=== PATIENT | female | born 1955 | race Caucasian/White ===

== ENCOUNTER → 2017-07-20 | Outpatient (CLI) | payer MEDICARE, SELFPAY | PROVIDERS: Visit Provider Internal Medicine Adolescent Medicine | DX: R05 Cough; M79.1 Myalgia | CPT/HCPCS: 71020; 87486; 87581; 87633; 87798 ==

== ENCOUNTER → 2017-08-05 | Outpatient (CLI) | payer MEDICARE, SELFPAY | PROVIDERS: Visit Provider Nurse Practitioner Family | DX: E78.5 Hyperlipidemia, unspecified (principal); R25.2 Cramp and spasm; I10 Essential (primary) hypertension; E55.9 Vitamin D deficiency, unspecified | CPT/HCPCS: 36415; 80053; 80061; 82306; 83735; 84443; 85025 ==

== ENCOUNTER → 2018-01-05 08:33 | Outpatient (CLI) | payer MEDICARE, SELFPAY ==
--- NOTE | 2018-01-05 08:43 | MM_ITS ---
MM Dig screening mamm BI w/CAD . COMPARISON: Previous mammograms: December 2016, 2015, November 2014. October 2013. June 2012. . INDICATION: Routine screening. No hormones. Previous excisional biopsy left breast. Family history. Sister with breast cancer age 50 TECHNIQUE: Standard CC and MLO images were obtained. R2 CAD reviewed. FINDINGS: No significant new findings. Low-density breast with generalized fatty replacement RIGHT BREAST:No no significant new areas of concern Small area density at retroareolar region on MLO view dissipates on cc view, and is been seen on multiple previous studies including 2014 . Period It can be followed. Would recommend bilateral mammogram in not over one year for ongoing evaluation LEFT BREAST:No significant new findings. Follow-up in one year recommended IMPRESSION: Stable mammograms No Significant new findings. Follow up one year recommended BI-RADS Category: 1 Negative RECOMMENDED FOLLOW-UP: 1YR - 1 YEAR FOLLOW-UP (A letter has been sent to the patient regarding results of the study.)
[2018-01-05 09:04] LABS: Basophils % 0.4 % (0.1-2.0); Eosinophils # 0.1 K/mm3 (0.0-0.4); Eosinophils % 1.7 % (0.1-12.0); Hematocrit 35.3 % (37.0-47.0); Hemoglobin 11.8 g/dL (12.2-16.2); Lymphocytes # 2.1 K/mm3 (0.7-4.5); Lymphocytes % 30.1 K/mm3 (10-50); Mean Corpuscular HGB Conc 33.4 g/dL (31.8-35.4); Mean Corpuscular Hemoglobin 29.8 pg (27.0-31.2); Mean Corpuscular Volume 89.1 fl (81-99); Mean Platelet Volume 7.6 fl (7.4-10.4); Monocytes # 0.4 K/mm3 (0.1-1.0); Monocytes % 4.9 % (1.7-9.3); Neutrophils # 4.4 K/mm3 (1.8-7.8); Neutrophils % 62.9 % (37.0-80.0); Platelet Count 268 K/mm3 (142-424); Red Blood Count 3.96 M/mm3 (4.20-5.40); Red Cell Distribution Width 14.3 % (11.5-17.5)
[2018-01-05 12:28] LABS: Alanine Aminotransferase 21 U/L (12-78); Albumin Level 3.8 gm/dL (3.4-5.0); Alkaline Phosphatase 99 U/L (46-116); Anion Gap 11.5 mEq/L (5-15); Bilirubin,Total 0.3 mg/dL (0.2-1.0); Blood Urea Nitrogen 19 mg/dL (7-18); Carbon Dioxide 30 mmol/L (21.0-32.0); Chloride 104 mmol/L (98-107); Chol/HDL Ratio 5.1 (1-3.5); Cholesterol 209 mg/dL (140-200); Creatinine,Serum 0.74 mg/dL (0.55-1.02); Estimated Glomerular Filt Rate 79 ml/min (>60); GFR (African American) 96 ML/MIN (>60); Globulin 3.7 gm/dl (1.3-3.2); Glucose 106 mg/dL (74-106); HDL Cholesterol 41 mg/dL (29-89); LDL Cholesterol 124 mg/dL (0-130); Sodium 141 mmol/L (136-145); Total Protein,Serum 7.5 gm/dL (6.4-8.2); Triglycerides 222 mg/dL (30-200); VLDL Cholesterol 44 mg/dL (0-40)
[2018-01-05 12:30] LABS: Aspartate Amino Transferase 19 U/L (15-37); Potassium 4.5 mmoL/L (3.5-5.1)
[2018-01-06 20:12] LABS: Vitamin B12 278 pg/mL (232-1245)
== END ==
PROVIDERS: Family Provider Internal Medicine Adolescent Medicine; PCP Internal Medicine Adolescent Medicine; Visit Provider Internal Medicine Adolescent Medicine
DX: Z12.31 Encounter for screening mammogram for malignant neoplasm of breast (principal); E53.8 Deficiency of other specified B group vitamins; E78.5 Hyperlipidemia, unspecified; E55.9 Vitamin D deficiency, unspecified; I10 Essential (primary) hypertension
CPT/HCPCS: 36415; 77067; 80053; 80061; 82607; 82652; 85025

== ENCOUNTER → 2018-01-27 09:26 | Outpatient (CLI) | payer MEDICARE, SELFPAY ==
--- NOTE | 2018-01-27 09:31 | CA_ITS ---
PROCEDURE: 2-D M-mode and color Doppler study INDICATIONS FOR THE TEST: Chest pain COPD Heart Murmur Tobacco Smoking Palpitations Fatigue Syncope EdemaX HypertensionXDiabetes Mellitus Rheumatic Fever SOB CM ObesityXHyperlipidemiaX Family History HD Additional History PATIENT INFORMATION HEIGHT: 62 WEIGHT:215 GENDER: Female B/P:120/80 2-D/M-MODE INTERPRETATION: 2-D MEASUREMENTS OBSERVED VALUES IN CMS Right Ventricular Dimension (RVDd) 1.3 Interventricular Septum (Thickness)(IVsd) .9 Left Ventricular Internal Dimensions(LVIDd) 5.7 Left Ventricular Posterior Wall (Thickness)(LVPWd) 1.1 Aortic Root 3.8 Aortic Cusp Separation 2.0 Left Atrial Dimensions (LAD) 4.2 2D 1. Left atrium is mildly enlarged, left ventricle is normal size, there is no concentric left ventricular hypertrophy, visually estimated ejection fraction 55% with no obvious regional wall motion abnormality. 2. The right atrium and right ventricle are normal size and contractility. 3. The aortic valve is minimally thickened and fibrosed. 4. The mitral and tricuspid valve leaflets are minimally thickened. 5. The pulmonic valve is poorly visualized. 6. No significant pericardial effusion noted. DOPPLER INTERROGATION: Doppler interrogation of the aortic, mitral and tricuspid valvular presence of mild mitral and tricuspid regurgitation, tricuspid and jet velocity is insufficient for calculation of the right ventricular systolic pressure, diastolic parameters are inconclusive. CONCLUSION: 1. Mildly enlarged left atrium, normal left ventricular size, visually estimated ejection fraction 55% with no obvious regional wall motion abnormality, diastolic parameters are inconclusive. 2. Mild mitral and tricuspid regurgitation 3. No significant pericardial effusion noted.
== END ==
PROVIDERS: Family Provider Internal Medicine Adolescent Medicine; PCP Internal Medicine Adolescent Medicine; Visit Provider Nurse Practitioner Family
DX: R60.1 Generalized edema (principal); R06.02 Shortness of breath; R53.81 Other malaise
CPT/HCPCS: 93306

== ENCOUNTER → 2018-09-09 09:37 | Outpatient (CLI) | payer MEDICARE, SELFPAY ==
--- NOTE | 2018-09-09 09:52 | XR_ITS ---
XR knee LT 3V Ordering Physician: Apurva Ledezma Patient Age: 63 years: Female HISTORY: ITS.REASON: PAIN, HX OF TOTAL KNEE REPLACEMENT Pain at left knee TECHNIQUE: AP lateral and oblique view left knee COMPARISON :August 2015 left knee FINDINGS Left TMJ a appears stable and unchanged. No new or acute findings. Period The prosthetic elements appear to be well positioned stable with no fracture or loosening evident. Bones well mineralized. At suprapatella bursa there is upper normal to perhaps subtle increased joint fluid., Minimal suggestion of such Suggested second of 2 lateral views IMPRESSION: Stable satisfactory appearing Left TKA. No fracture or loosening evident versus 2016 Upper normal to perhaps scant increased joint fluid suprapatella bursa
[2018-09-09 10:00] LABS: Basophils % 0.5 % (0.1-2.0); Eosinophils # 0.1 K/mm3 (0.0-0.4); Eosinophils % 1.7 % (0.1-12.0); Hematocrit 38.2 % (37.0-47.0); Hemoglobin 11.8 g/dL (12.2-16.2); Lymphocytes # 2.4 K/mm3 (0.7-4.5); Lymphocytes % 35.7 % (10-50); Mean Corpuscular HGB Conc 30.8 g/dL (31.8-35.4); Mean Corpuscular Hemoglobin 28.2 pg (27.0-31.2); Mean Corpuscular Volume 91.7 fl (81-99); Mean Platelet Volume 7.2 fl (7.4-10.4); Monocytes # 0.3 K/mm3 (0.1-1.0); Monocytes % 4.5 % (1.7-9.3); Neutrophils # 3.8 K/mm3 (1.8-7.8); Neutrophils % 57.6 % (37.0-80.0); Platelet Count 254 K/mm3 (142-424); Red Blood Count 4.17 M/mm3 (4.20-5.40); Red Cell Distribution Width 14.5 % (11.5-17.5); White Blood Count 6.6 K/mm3 (4.8-10.8)
[2018-09-09 12:32] LABS: Alanine Aminotransferase 19 U/L (12-78); Albumin Level 3.3 gm/dL (3.4-5.0); Albumin/Globulin Ratio 0.9 (1.1-1.8); Alkaline Phosphatase 110 U/L (46-116); Anion Gap 13.2 mEq/L (5-15); Aspartate Amino Transferase 14 U/L (15-37); Bilirubin,Total 0.2 mg/dL (0.2-1.0); Blood Urea Nitrogen 23 mg/dL (7-18); Calcium 9.6 mg/dL (8.5-10.1); Carbon Dioxide 28 mmol/L (21.0-32.0); Chloride 105 mmol/L (98-107); Chol/HDL Ratio 8.5 (1-3.5); Cholesterol 264 mg/dL (140-200); Creatinine,Serum 0.87 mg/dL (0.55-1.02); Estimated Glomerular Filt Rate 65 ml/min (>60); Ferritin 13 ng/mL (8-388); GFR (African American) 79 ML/MIN (>60); Globulin 3.6 gm/dl (1.3-3.2); Glucose 107 mg/dL (74-106); HDL Cholesterol 31 mg/dL (29-89); LDL Cholesterol 161 mg/dL (0-130); Potassium 4.2 mmoL/L (3.5-5.1); Sodium 142 mmol/L (136-145); Thyroid Stimulating Hormone 4.97 uIU/ml (0.358-3.740); Total Protein,Serum 6.9 gm/dL (6.4-8.2); Triglycerides 360 mg/dL (30-200); VLDL Cholesterol 72 mg/dL (0-40)
[2018-09-10 06:43] LABS: Iron 41 ug/dL (27-139); UIBC 317 ug/dL (118-369)
[2018-09-10 17:18] LABS: Iron Saturation 11 % (15-55); Vitamin B12 607 pg/mL (232-1245)
[2018-09-11 08:46] LABS: Vitamin D 25 Hydroxy 30.3 ng/mL (30.0-100.0)
[2018-09-12 07:05] LABS: Folate 7.5 ng/mL (>3.0)
== END ==
PROVIDERS: Visit Provider Nurse Practitioner Family
DX: D63.8 Anemia in other chronic diseases classified elsewhere (principal); E78.5 Hyperlipidemia, unspecified; E55.9 Vitamin D deficiency, unspecified; E53.8 Deficiency of other specified B group vitamins; E66.9 Obesity, unspecified; M25.562 Pain in left knee
CPT/HCPCS: 36415; 73562; 80053; 80061; 82607; 82652; 82728; 82746; 83540; 83550; 84443; 85025

== ENCOUNTER → 2019-01-06 09:40 | Outpatient (CLI) | payer MEDICARE, SELFPAY ==
[2019-01-06 11:09] LABS: Alanine Aminotransferase 24 U/L (12-78); Albumin Level 3.3 gm/dL (3.4-5.0); Alkaline Phosphatase 95 U/L (46-116); Anion Gap 11.8 mEq/L (5-15); Aspartate Amino Transferase 12 U/L (15-37); Bilirubin,Total 0.4 mg/dL (0.2-1.0); Blood Urea Nitrogen 22 mg/dL (7-18); Calcium 9.1 mg/dL (8.5-10.1); Carbon Dioxide 29 mmol/L (21.0-32.0); Chloride 104 mmol/L (98-107); Chol/HDL Ratio 6.1 (1-3.5); Cholesterol 244 mg/dL (140-200); Creatinine,Serum 0.86 mg/dL (0.55-1.02); Estimated Glomerular Filt Rate 66 ml/min (>60); Ferritin 29 ng/mL (8-388); Free T4 (Free Thyroxine) 0.93 ng/dl (0.76-1.46); GFR (African American) 80 ML/MIN (>60); Globulin 3.4 gm/dl (1.3-3.2); Glucose 95 mg/dL (74-106); HDL Cholesterol 40 mg/dL (29-89); LDL Cholesterol 165 mg/dL (0-130); Potassium 3.8 mmoL/L (3.5-5.1); Sodium 141 mmol/L (136-145); Total Protein,Serum 6.7 gm/dL (6.4-8.2); Triglycerides 193 mg/dL (30-200); VLDL Cholesterol 39 mg/dL (0-40)
[2019-01-06 12:28] LABS: Basophils % 0.5 % (0.1-2.0); Eosinophils # 0.1 K/mm3 (0.0-0.4); Eosinophils % 1.2 % (0.1-12.0); Hematocrit 40.2 % (37.0-47.0); Hemoglobin 12.7 g/dL (12.2-16.2); Lymphocytes # 2.2 K/mm3 (0.7-4.5); Mean Corpuscular HGB Conc 31.5 g/dL (31.8-35.4); Mean Corpuscular Hemoglobin 29.9 pg (27.0-31.2); Mean Platelet Volume 7.5 fl (7.4-10.4); Monocytes # 0.3 K/mm3 (0.1-1.0); Monocytes % 4.6 % (1.7-9.3); Neutrophils # 3.4 K/mm3 (1.8-7.8); Neutrophils % 56.9 % (37.0-80.0); Platelet Count 278 K/mm3 (142-424); Red Blood Count 4.24 M/mm3 (4.20-5.40); Red Cell Distribution Width 14.9 % (11.5-17.5); White Blood Count 6.1 K/mm3 (4.8-10.8)
[2019-01-07 17:26] LABS: Vitamin B12 557 pg/mL (232-1245)
[2019-01-09 08:50] LABS: Vitamin D 25 Hydroxy 30.5 ng/mL (30.0-100.0)
== END ==
PROVIDERS: Visit Provider Internal Medicine Adolescent Medicine
DX: D63.8 Anemia in other chronic diseases classified elsewhere (principal); E78.5 Hyperlipidemia, unspecified; E53.8 Deficiency of other specified B group vitamins; E55.9 Vitamin D deficiency, unspecified; E03.9 Hypothyroidism, unspecified
CPT/HCPCS: 36415; 80053; 80061; 82607; 82652; 82728; 84439; 84443; 85025

== ENCOUNTER → 2019-01-11 09:07 | Outpatient (CLI) | payer MEDICARE, SELFPAY ==
--- NOTE | 2019-01-11 09:14 | MM_ITS ---
MM Dig screening mamm BI w/CAD CAD Screening COMPARISON: Digital mammograms with CAD 01/05/2018 and 12/20/2016 INDICATION: There is a history of breast cancer in patient's sister diagnosed at age 46. There has been a previous biopsy left breast for benign disease. TECHNIQUE: Standard CC and MLO images were obtained. R2 CAD reviewed. FINDINGS: The breasts are composed primarily of fat with minimal scattered fibroglandular densities in each breast. There is no new or suspicious lesion in either breast and there are no suspicious microcalcifications. There is very minimal focal post biopsy scarring central portion left breast. There are couple benign-appearing microcalcifications right breast. IMPRESSION: Fatty breast parenchyma no suspicious lesion seen BI-RADS Category: 2 Benign Finding(s) RECOMMENDED FOLLOW-UP: 1YR - 1 YEAR FOLLOW-UP (A letter has been sent to the patient regarding results of the study.)
== END ==
PROVIDERS: PCP Internal Medicine Adolescent Medicine; Visit Provider Nurse Practitioner Family
DX: Z12.31 Encounter for screening mammogram for malignant neoplasm of breast (principal)
CPT/HCPCS: 77067

== ENCOUNTER → 2019-01-18 10:42 | Outpatient (CLI) | payer MEDICARE, SELFPAY ==
--- NOTE | 2019-01-18 10:48 | XR_ITS ---
XR DEXA axial skeleton HISTORY: ITS.REASON: POST MENOPAUSAL ORDERING PHYSICIAN: Apurva Ledezma APRN PATIENT AGE: 63 years COMPARISON: None FINDINGS: The BMD measured at the Total Right femoral neck is 0.902 g/cm squared with a T score of -0.8. This is considered Normal according to the World Health Organization criteria. Fracture risk is Low. Treatment is advised. The L1 L4 density has a T score of -0.2 which is normal IMPRESSION: Normal bone density with low fracture risk. Suggest follow up exam January 2021
== END ==
PROVIDERS: PCP Internal Medicine Adolescent Medicine; Visit Provider Nurse Practitioner Family
DX: Z13.820 Encounter for screening for osteoporosis (principal); Z78.0 Asymptomatic menopausal state
CPT/HCPCS: 77080

== ENCOUNTER → 2020-01-14 09:12 | Outpatient (CLI) | payer MEDICARE, SELFPAY ==
[2020-01-14 09:59] LABS: Basophils # 0.1 K/mm3 (0-0.2); Basophils % 1.2 % (0.1-2.0); Eosinophils # 0.1 K/mm3 (0.0-0.4); Eosinophils % 1.9 % (0.1-12.0); Hematocrit 41.2 % (37.0-47.0); Hemoglobin 13.7 g/dL (12.2-16.2); Lymphocytes # 2.1 K/mm3 (0.7-4.5); Lymphocytes % 33.3 % (10-50); Mean Corpuscular HGB Conc 33.1 g/dL (31.8-35.4); Mean Corpuscular Volume 96.7 fl (81-99); Mean Platelet Volume 7.3 fl (7.4-10.4); Monocytes # 0.3 K/mm3 (0.1-1.0); Monocytes % 4.6 % (1.7-9.3); Neutrophils # 3.7 K/mm3 (1.8-7.8); Neutrophils % 58.9 % (37.0-80.0); Platelet Count 228 K/mm3 (142-424); Red Blood Count 4.26 M/mm3 (4.20-5.40); Red Cell Distribution Width 13.8 % (11.5-17.5); White Blood Count 6.3 K/mm3 (4.8-10.8)
[2020-01-14 10:24] LABS: Alanine Aminotransferase 16 U/L (12-78); Albumin Level 4.4 g/dl (3.5-5.0); Albumin/Globulin Ratio 1.5 (1.1-1.8); Alkaline Phosphatase 96 U/L (38-126); Anion Gap 8.5 mEq/L (5-15); Aspartate Amino Transferase 24 U/L (14-36); Bilirubin,Total 0.4 mg/dl (0.2-1.3); Blood Urea Nitrogen 21 mg/dl (7-17); Carbon Dioxide 32 mmol/L (22.0-30.0); Chloride 102 mmol/L (98-107); Chol/HDL Ratio 5.7 (1-3.5); Cholesterol 249 mg/dl (140-200); Estimated Glomerular Filt Rate 63 ml/min (>60); GFR (African American) 76 ML/MIN (>60); Glucose 106 mg/dl (74-100); HDL Cholesterol 44 mg/dl (40-60); Potassium 4.5 mmoL/L (3.5-5.1); Sodium 138 mmol/L (136-145); Total Protein,Serum 7.4 g/dl (6.3-8.2); Triglycerides 315 mg/dl (30-150); VLDL Cholesterol 63 mg/dL (0-40)
[2020-01-14 10:34] LABS: Direct LDL Cholesterol 164.02 mg/dL (100-129)
[2020-01-14 10:55] LABS: Thyroid Stimulating Hormone 4.43 uIU/mL (0.465-4.68)
[2020-01-15 09:52] LABS: Vitamin D 25 Hydroxy 33.5 ng/mL (30.0-100.0)
[2020-01-15 13:41] LABS: Vitamin B12 585 pg/mL (232-1245)
== END ==
PROVIDERS: Visit Provider Internal Medicine Adolescent Medicine
DX: E78.5 Hyperlipidemia, unspecified (principal); E03.9 Hypothyroidism, unspecified; E53.8 Deficiency of other specified B group vitamins; E55.9 Vitamin D deficiency, unspecified
CPT/HCPCS: 36415; 80053; 80061; 82607; 82652; 84443; 85025

== ENCOUNTER → 2020-01-21 08:41 | Outpatient (CLI) | payer MEDICARE, SELFPAY ==
--- NOTE | 2020-01-21 08:47 | MM_ITS ---
PROCEDURE: MM DIG SCREENING MAMM BI W/CAD Digital Breast Tomosynthesis Included CLINICAL INDICATION: SCREENING There is a history of breast cancer patient's sister. There has been a previous biopsy left breast for benign disease. COMPARISON: [facility] DIG MAMM-SCREEN REED W/CAD from 12/20/2016 [facility] MM Dig screening mamm BI w/CAD from 01/05/2018 DIG MAMM-SCREEN REED from 01/11/2019 TECHNIQUE: Standard CC and MLO images and 3D Tomosynthesis was obtained. R2 CAD reviewed. FINDINGS: The breasts are composed primarily of fat with minimal scattered fibroglandular densities in each breast. There are couple of benign-appearing microcalcifications in each breast. There is no new or suspicious lesion in either breast and no suspicious microcalcifications. IMPRESSION: Fatty type breast parenchyma with no suspicious lesions seen BI-RAD Category: 2 Benign Finding(s) FOLLOW-UP: 1YR 1 Year Follow-up (A letter has been sent to the patient regarding results of the study.) Dictated by: Dr. Sebas Madrid MD 01/22/2020 09:[address] Sebas Madrid MD in [place] 01/22/2020 09:55
== END ==
PROVIDERS: PCP Internal Medicine Adolescent Medicine; Visit Provider Nurse Practitioner Family
DX: Z12.31 Encounter for screening mammogram for malignant neoplasm of breast (principal)
CPT/HCPCS: 77063; 77067

== ENCOUNTER → 2020-07-17 09:41 | Outpatient (CLI) | payer MEDICARE, SELFPAY ==
[2020-07-17 10:37] LABS: Basophils % 0.4 % (0.1-2.0); Eosinophils # 0.1 K/mm3 (0.0-0.4); Eosinophils % 2.1 % (0.1-12.0); Hemoglobin 13.6 g/dL (12.2-16.2); Lymphocytes # 1.8 K/mm3 (0.7-4.5); Lymphocytes % 26.6 % (10-50); Mean Corpuscular HGB Conc 32.3 g/dL (31.8-35.4); Mean Corpuscular Hemoglobin 31.1 pg (27.0-31.2); Mean Corpuscular Volume 96.3 fl (81-99); Mean Platelet Volume 7.6 fl (7.4-10.4); Monocytes # 0.3 K/mm3 (0.1-1.0); Monocytes % 4.8 % (1.7-9.3); Neutrophils # 4.4 K/mm3 (1.8-7.8); Neutrophils % 66.2 % (37.0-80.0); Platelet Count 268 K/mm3 (142-424); Red Blood Count 4.36 M/mm3 (4.20-5.40); Red Cell Distribution Width 13.9 % (11.5-17.5); White Blood Count 6.7 K/mm3 (4.8-10.8)
[2020-07-17 11:55] LABS: Chloride 102 mmol/L (98-107); Potassium 4.9 mmoL/L (3.5-5.1); Sodium 139 mmol/L (136-145)
[2020-07-17 11:58] LABS: Alanine Aminotransferase 13 U/L (12-78); Albumin Level 4.2 g/dl (3.5-5.0); Albumin/Globulin Ratio 1.6 (1.1-1.8); Alkaline Phosphatase 97 U/L (38-126); Anion Gap 8.9 mEq/L (5-15); Aspartate Amino Transferase 23 U/L (14-36); Bilirubin,Total 0.5 mg/dl (0.2-1.3); Blood Urea Nitrogen 21 mg/dl (7-17); Calcium 10.2 mg/dl (8.4-10.2); Carbon Dioxide 33 mmol/L (22.0-30.0); Cholesterol 205 mg/dl (140-200); Estimated Glomerular Filt Rate 72 ml/min (>60); GFR (African American) 87 ML/MIN (>60); Globulin 2.7 g/dL (1.3-3.2); Glucose 106 mg/dl (74-100); Total Protein,Serum 6.9 g/dl (6.3-8.2); Triglycerides 278 mg/dl (30-150); VLDL Cholesterol 56 mg/dL (0-40)
[2020-07-17 11:59] LABS: Chol/HDL Ratio 4.8 (1-3.5); HDL Cholesterol 43 mg/dl (40-60)
[2020-07-17 12:10] LABS: Direct LDL Cholesterol 106.58 mg/dL (100-129)
[2020-07-17 12:13] LABS: Hemoglobin A1C 5.7 % (4.0-6.0)
[2020-07-17 12:30] LABS: Thyroid Stimulating Hormone 4.11 uIU/mL (0.465-4.68)
[2020-07-17 13:08] LABS: Vitamin B12 876 pg/mL (239-931)
[2020-07-22 12:37] LABS: 1,25 Dihydroxy Vitamin D 47 pg/mL (.); 1,25-Dihydroxy, Vitamin D-2 <10 pg/mL (.); 1,25-Dihydroxy, Vitamin D-3 47 pg/mL (.)
== END ==
PROVIDERS: Visit Provider Nurse Practitioner Family
DX: I10 Essential (primary) hypertension (principal); E78.5 Hyperlipidemia, unspecified; E03.9 Hypothyroidism, unspecified; E53.8 Deficiency of other specified B group vitamins; E55.9 Vitamin D deficiency, unspecified; R73.9 Hyperglycemia, unspecified
CPT/HCPCS: 36415; 80053; 80061; 82607; 82652; 83036; 84443; 85025

== ENCOUNTER 2020-09-06 12:23 | Emergency (ER) | payer MEDICARE, SELFPAY ==
[2020-09-06 12:25] VITALS: BP 145/82; PULSE 85; RESP 19; TEMP 36.9; O2SAT 98; BMI 40.2
--- NOTE | 2020-09-06 12:54 | HMH.EDUTC ---
[facility] [place] Impression: URI (upper respiratory infection) Qualifiers: URI type: unspecified URI Qualified Code(s): J06.9 - Acute upper respiratory infection, unspecified Disposition: Home, Self-Care Condition on Discharge: Good Instructions: Acute Bronchitis, Azithromycin, DI for COVID-19 (Suspected or Confirmed ), Preventing the Spread of Coronavirus Discharge Instructions Additional Instructions: *Monitor Temp, Over the counter Motrin or Tylenol as directed/as needed Tylenol every 4 hours and Motrin every 6 hours (as long as your family doctor has told you that you can take it) for fever or pain. and straight to ER if unable to lower temp less than 101.0 after medication given *Warm salt water gargles may help to soothe the throat irritated from coughing *Throat Lozenges *Warm fluids like tea with honey may help to soothe the throat that is irritated and help with cough *Sleep elevated *Humidifier/Vaporizer Follow up IMMEDIATELY for new or worsening symptoms or no Noticeable improvement over the next 48-72 hours. 911 for difficulty breathing or swallowing You were tested for today for COVID19 your test result should be back in the next 24-48 hours, you may call to the [facility] to see if your test results are back in the next 48 hours [phone] [facility] hours are 9am-9pm You was given a handout with instructions for Self Quarantine and Self isolation for while you wait on test results and what to do if they are positive If you are positive the Health Dept will be contacting you also Prescriptions: Azithromycin [Z-Mingo 250mg Tab] 250 mg PO DIRECTED #6 tab [id number] Referrals: Marcos Foster MD [Primary Care Provider] - As needed Time of Disposition: 13:01 Medical Decision Making - Heriberto Inquiry Pt receiving controlled substance: No Heriberto was queried for this patient: No Vital Signs: 09/06/20 12:25 Temperature 98.4 F Temperature Source Oral Pulse Rate [Right Brachial] 85 Respiratory Rate 19 Blood Pressure [Right Arm] 145/82 H Blood Pressure Mean [Right Arm] 103 Blood Pressure Source [Right Arm] Automatic Cuff Blood Pressure Position [Right Arm] Sitting 02 Sat by Pulse Oximetry 98 Oxygen Delivery Method Room Air Orders (Tests/Meds): ED MEDICATIONS Discontinued Medications Generic Name Dose Route Start Last Admin Trade Name Camille PRN Reason Stop Dose Admin Methylprednisolone Sodium Succinate 125 mg 09/06/20 12:54 Methylprednisolone Sod Succ 125mg Vial IM 09/06/20 12:55 ONCE ONE Medical Decision Narrative: Patient state that she has taken SoluMedrol and azithromycin in the past without any reactions or complications Discussed chest xray and patient declined at this time, recommended COVID testing and patient agreed [facility] [place] - General Stated complaint: cough, possible bronchitis Time Seen by Provider: 09/06/20 12:54 Mode of Arrival: Ambulatory Source of Information: Patient Limitations: No Limitations Description of Symptoms (Recalled from Triage Doc. by RN): PATIENT C/O COUGH AND CHEST CONGESTION SINCE LAST NIGHT HEENT Symptoms (Recalled from RN notes): No Resp Symptoms (Recalled from RN notes): Yes Skin Symptoms (Recalled from RN notes): No MS Symptoms (Recalled from RN notes): No Functional Status (Recalled from RN notes): WNL - History of Present Illness Provider Complaint: Patient states that she has felt like she was getting bronchitis again States that she was having a burning like feeling when she would take a deep breath and last night she started having some coughing, drainage and felt like she was getting some chest congestion States that when she does this she tries to get checked before it turns into pneumonia - Related Data Previous Rx's Medication Instructions Recorded Gentamicin Sulfate [Gentak opth 0.5 inch EYE-RIGHT TID #1 tube 09/24/18 ointment 3.5gm] Azithromycin [Z-Mingo 250mg Tab] 250 mg
[2020-09-06 13:18] VITALS: BP 145/82; PULSE 85; RESP 19; TEMP 36.9; O2SAT 98
== END 2020-09-06 13:20 | disposition home or self-care (01) ==
PROVIDERS: Emergency Provider Nurse Practitioner; PCP Internal Medicine Adolescent Medicine
DX: Z20.822 Contact with and (suspected) exposure to COVID-19 (principal); J06.9 Acute upper respiratory infection, unspecified
CPT/HCPCS: G0463; 96372; 99202; U0003

== ENCOUNTER → 2021-01-20 08:37 | Outpatient (CLI) | payer MEDICARE, SELFPAY ==
[2021-01-20 09:02] LABS: Basophils % 0.6 % (0.1-2.0); Eosinophils # 0.1 K/mm3 (0.0-0.4); Eosinophils % 1.9 % (0.1-12.0); Hematocrit 38.6 % (37.0-47.0); Hemoglobin 12.7 g/dL (12.2-16.2); Lymphocytes # 2.4 K/mm3 (0.7-4.5); Lymphocytes % 33.6 % (10-50); Mean Corpuscular HGB Conc 32.9 g/dL (31.8-35.4); Mean Corpuscular Hemoglobin 30.6 pg (27.0-31.2); Mean Corpuscular Volume 92.9 fl (81-99); Mean Platelet Volume 7.5 fl (7.4-10.4); Monocytes # 0.3 K/mm3 (0.1-1.0); Monocytes % 4.8 % (1.7-9.3); Neutrophils # 4.2 K/mm3 (1.8-7.8); Neutrophils % 59.1 % (37.0-80.0); Platelet Count 236 K/mm3 (142-424); Red Blood Count 4.16 M/mm3 (4.20-5.40); Red Cell Distribution Width 13.8 % (11.5-17.5); White Blood Count 7.1 K/mm3 (4.8-10.8)
[2021-01-20 10:02] LABS: Alanine Aminotransferase 15 U/L (12-78); Albumin Level 4.1 g/dl (3.5-5.0); Albumin/Globulin Ratio 1.6 (1.1-1.8); Alkaline Phosphatase 83 U/L (38-126); Anion Gap 9.9 mEq/L (5-15); Aspartate Amino Transferase 24 U/L (14-36); Bilirubin,Total 0.6 mg/dl (0.2-1.3); Blood Urea Nitrogen 18 mg/dl (7-17); Calcium 9.7 mg/dl (8.4-10.2); Carbon Dioxide 29 mmol/L (22.0-30.0); Chloride 104 mmol/L (98-107); Chol/HDL Ratio 4.9 (1-3.5); Cholesterol 183 mg/dl (140-200); Estimated Glomerular Filt Rate 72 ml/min (>60); GFR (African American) 87 ML/MIN (>60); Globulin 2.6 g/dL (1.3-3.2); Glucose 98 mg/dl (74-100); HDL Cholesterol 37 mg/dl (40-60); Potassium 3.9 mmoL/L (3.5-5.1); Sodium 139 mmol/L (136-145); Total Protein,Serum 6.7 g/dl (6.3-8.2); Triglycerides 283 mg/dl (30-150); VLDL Cholesterol 57 mg/dL (0-40)
[2021-01-20 10:14] LABS: Direct LDL Cholesterol 98.83 mg/dL (100-129)
[2021-01-20 10:50] LABS: Vitamin B12 814 pg/mL (239-931)
== END ==
PROVIDERS: Visit Provider Nurse Practitioner Family
DX: E78.5 Hyperlipidemia, unspecified (principal); E53.8 Deficiency of other specified B group vitamins; E55.9 Vitamin D deficiency, unspecified; D63.8 Anemia in other chronic diseases classified elsewhere
CPT/HCPCS: 36415; 80053; 80061; 82306; 82607; 85025

== ENCOUNTER → 2021-01-21 13:11 | Outpatient (CLI) | payer MEDICARE, SELFPAY ==
--- NOTE | 2021-01-21 13:13 | MM_ITS ---
PROCEDURE INFORMATION: Exam: MG Screening 3D Mammography Exam date and time: 01/21/2021 1:13 PM Age: 65 years old Clinical indication: screening mammogram TECHNIQUE: Imaging protocol: Screening tomosynthesis and 2D mammography including computer-aided detection (CAD) when performed. COMPARISON: 1. MG MM DIG SCREENING MAMM BI W/CAD 01/21/2020 9:04 AM 2. MG DIG MAMM-SCREEN REED 01/11/2019 9:33 AM 3. MG [facility] MM Dig screening mamm BI w/CAD 01/05/2018 9:11 AM 4. MG [facility] DIG MAMM-SCREEN REED W/CAD 12/20/2016 9:32 AM FINDINGS: MAMMOGRAPHY: Breast composition: There are scattered areas of fibroglandular density. Mass: None. Architectural distortion: No new or suspicious architectural distortion. Calcifications: No new or suspicious calcifications are present Asymmetric density: No new or suspicious asymmetric density is present Skin thickening: None. Axillary adenopathy: None. IMPRESSION: No mammographic evidence of malignancy. Recommend annual screening mammography unless otherwise clinically indicated. ASSESSMENT: BI-RADS category 1: Negative
== END ==
PROVIDERS: PCP Internal Medicine Adolescent Medicine; Visit Provider Internal Medicine Adolescent Medicine
DX: Z12.31 Encounter for screening mammogram for malignant neoplasm of breast (principal)
CPT/HCPCS: 77063; 77067

== ENCOUNTER 2021-04-03 11:00 | Outpatient (RCR) | payer MEDICARE, SELFPAY ==
--- NOTE | 2021-03-12 11:04 | HMH.OTOPEV ---
OT Inpatient Evaluation Rehab OT Outpatient Eval Start: 03/12/21 10:30 Freq: Status: Active Protocol: Document 03/12/21 10:31 MIKALA (Rec: 03/12/21 10:51 MIKALA [id number]) Electronically Signed By Hortensia Murillo OT 03/12/21 10:31 Outpatient Therapy Subjective History Subjective History 65 year old female referred to skilled OP OT services for R shoulder pain. Patient expressed having pain in R shoulder for over a year and within the last month the pain has gotten worse. No known injury to R shoulder. Patient verbalize having difficulty with everyday tasks that involve lifting and reaching 2 * pain and limited AROM to R shoulder. Patient verbalize being limited to lifting for detergent during laundry, lifting cup of coffee from car cup hastings, washing/brushing hair and reaching into cabinets overhead during meal prep. Chief Complaint Pain,Weakness Symptom Type Dull Symptoms Relieved By Nothing Symptoms Aggravated By Physical Activity Prior Functional Limitations None Current Functional Limitations Reaching,Lifting,Recreation Activity Symptom Description Constant and Continuous Level of pain today (0-10) 2 Pain scale - at its best (0-10) 2 Pain scale - at its worst (0-10) 6 Shoulder/Elbow Eval Shoulder Objective Measurements Shoulder ROM Right Shoulder Abduction Active Range of 80 Motion (degrees) Shoulder Flexion Active Range of Motion 80 (degrees) Query Text: Shoulder External Rotation Active Range 80 of Motion (degrees) Shoulder Internal Rotation Active Range 60 of Motion (degrees) Shoulder MMT Shoulder Abduction Strength Grade 3- Fair- Shoulder Extension Strength Grade 3- Fair- Shoulder Flexion Strength Grade 3- Fair- Shoulder Horizontal Abduction Strength 3- Fair- Grade Shoulder Horizontal Adduction Strength 3- Fair- Grade Infraspinatus/Teres Minor Strength Grade 3- Fair- Shoulder External Rotation Strength 3- Fair- Grade Shoulder Internal Rotation Strength 3- Fair- Grade Shoulder Special Tests impinge
== END 2021-04-03 11:05 | disposition home or self-care (01) ==
LOC: OT 11:00
PROVIDERS: PCP Internal Medicine Adolescent Medicine; Visit Provider Nurse Practitioner Family
DX: M75.81 Other shoulder lesions, right shoulder (principal)
CPT/HCPCS: 97014; 97035; 97110; 97140; 97165; 97530; G0283

== ENCOUNTER → 2021-06-23 17:41 | Outpatient (CLI) | payer MEDICARE, SELFPAY | PROVIDERS: PCP Internal Medicine Adolescent Medicine; Visit Provider Nurse Practitioner | DX: Z20.822 Contact with and (suspected) exposure to COVID-19 (principal) | CPT/HCPCS: C9803; U0003; U0005 ==

== ENCOUNTER 2021-08-15 11:37 | Emergency (ER) | payer MEDICARE, SELFPAY ==
[2021-08-15 12:53] VITALS: BP 136/81; PULSE 76; RESP 16; TEMP 36.8; O2SAT 98; BMI 38.9
--- NOTE | 2021-08-15 13:18 | HMH.EDUTC ---
[facility] [place] Clinical Impression: Exposure to COVID-19 virus Sinusitis Qualifiers: Sinusitis location: unspecified location Chronicity: acute Recurrence: non-recurrent Qualified Code(s): J01.90 - Acute sinusitis, unspecified Disposition: Home, Self-Care Condition on Discharge: Good Instructions: DI for Sinusitis, Preventing the Spread of Coronavirus Discharge Instructions Additional Instructions: Drink plenty of fluids. Take tylenol or ibuprofen for pain or fever. Take the medications as directed. Follow up with your regular doctor. GO TO THE ER FOR ANY WORSENING SYMPTOMS Quarantine until you know the results of your covid-19 test. If it is positive, the health department should call you and give you further instructions about your length of Quarantine and other things. Notify your school or workplace of your results and follow their instructions regarding return to work/school. Don't start the oral steroids until tomorrow, since you had the shot here today. Prescriptions: Benzonatate [Benzonatate 100mg cap] 100 mg PO TIDP PRN #30 cap PRN Reason: Cough Transmission Status: Received by [id number] methylPREDNISolone [Medrol] 4 mg PO DIRECTED 6 Days #21 packet Transmission Status: Received by [id number] Azithromycin [Z-Mingo 250mg Tab*] 250 mg PO UD DOSE PK #6 tab Transmission Status: Received by [id number] Referrals: Marcos Foster MD [Primary Care Provider] - Time of Disposition: 14:11 Medical Decision Making - Medical Records Medical records reviewed: No: I reviewed the patient's medical records. - Heriberto Inquiry Pt receiving controlled substance: No Vital Signs: 08/15/21 12:53 08/15/21 14:05 Temperature 98.2 F 98.2 F Temperature Source Oral Pulse Rate 76 Pulse Rate [Left] 76 Respiratory Rate 16 16 Blood Pressure 136/81 Blood Pressure [Right Arm] 136/81 Blood Pressure Mean [Right Arm] 99 02 Sat by Pulse Oximetry 98 - Lab Data Lab results reviewed: Yes: I reviewed the patient's lab results. Lab Results 08/15/21 13:36: Influenza Type A Ag Negative, Influenza Type B Ag Negative Orders (Tests/Meds): ED MEDICATIONS Discontinued Medications Generic Name Dose Route Start Last Admin Trade Name Freq PRN Reason Stop Dose Admin Ceftriaxone Sodium 1 gm 08/15/21 13:48 08/15/21 14:00 Ceftriaxone 1gm Vial IM 08/15/21 13:49 1 gm ONCE ONE Administration Lidocaine HCl 0 ml 08/15/21 13:48 08/15/21 14:00 Lidocaine 1% 5ml Pf Vial IM 08/15/21 13:49 2 ml ONCE ONE Administration Methylprednisolone Sodium Succinate 125 mg 08/15/21 13:48 08/15/21 14:00 Methylprednisolone Sod Succ 125mg Vial IM 08/15/21 13:49 125 mg ONCE ONE Administration [facility] [place] - General Stated complaint: congestion Time Seen by Provider: 08/15/21 13:18 Mode of Arrival: Ambulatory Source of Information: Patient Limitations: No Limitations Description of Symptoms (Recalled from Triage Doc. by RN): pt c/o cough and congestion. exposed to covid 12.30 HEENT Symptoms (Recalled from RN notes): Yes Resp Symptoms (Recalled from RN notes): Yes Skin Symptoms (Recalled from RN notes): No MS Symptoms (Recalled from RN notes): No Functional Status (Recalled from RN notes): wnl - History of Present Illness Provider Complaint: She states that for the past 3 days she has been getting worsenging chest and sinus congestion. She also has right ear pain. She gets bronchitis like this at this time every year. Her daughter does have covid-19, but she has stayed away from her since she found out she had it. She has been fully vaccinated against covid-19 also. - Related Data Previous Rx's Medication Instructions Recorded Gentamicin Sulfate [Gentak opth 0.5 inch EYE-RIGHT TID #1 tube 09/24/18 ointment 3.5gm] Azithromycin [Z-Mingo 250mg Tab] 250 mg PO DIRECTED #6 tab 09/06/20 Azithromycin [Z-Mingo 250mg Tab*] 250 mg PO UD DOSE PK #6
[2021-08-15 13:38] LABS: UTC Influenza A Antigen Negative (Negative)
[2021-08-15 13:39] LABS: UTC Influenza B Antigen Negative (Negative)
[2021-08-15 14:05] VITALS: BP 136/81; PULSE 76; RESP 16; TEMP 36.8
== END 2021-08-15 14:14 | disposition home or self-care (01) ==
PROVIDERS: Emergency Provider Nurse Practitioner Family; PCP Internal Medicine Adolescent Medicine
DX: U07.1 COVID-19 (principal); J01.90 Acute sinusitis, unspecified
CPT/HCPCS: G0463; 87804; 96372; 99202; C9803; J0696; U0003; U0005

== ENCOUNTER → 2022-02-04 08:29 | Outpatient (CLI) | payer MEDICARE, SELFPAY ==
--- NOTE | 2022-02-04 08:33 | MM_ITS ---
PROCEDURE INFORMATION: Exam: MG Bilateral Screening 3D Mammography Exam date and time: 02/04/2022 9:12 AM Age: 66 years old Clinical indication: Screening examination TECHNIQUE: Imaging protocol: Bilateral Screening tomosynthesis and 2D mammography including computer-aided detection (CAD) when performed. COMPARISON: 1. MG MM DIG SCREENING MAMM BI W/CAD 01/21/2021 1:20 PM 2. MG MM DIG SCREENING MAMM BI W/CAD 01/21/2020 9:04 AM FINDINGS: MAMMOGRAPHY: Breast composition: There are scattered areas of fibroglandular density. Mass: None. Architectural distortion: None. Calcifications: No suspicious calcifications. Asymmetric density: None. Skin thickening: None. Axillary adenopathy: None. IMPRESSION: No mammographic evidence of malignancy. Annual screening is recommended unless otherwise clinically indicated. ASSESSMENT: BI-RADS Category 1: Negative
== END ==
PROVIDERS: PCP Internal Medicine Adolescent Medicine; Visit Provider Nurse Practitioner Family
DX: Z12.31 Encounter for screening mammogram for malignant neoplasm of breast (principal)
CPT/HCPCS: 77063; 77067

== ENCOUNTER → 2022-12-14 14:18 | Outpatient (CLI) | payer MEDICARE, SELFPAY | PROVIDERS: PCP Internal Medicine Adolescent Medicine; Referring Provider Nurse Practitioner Family; Visit Provider Internal Medicine | DX: R00.2 Palpitations (principal) | CPT/HCPCS: 93225 ==

== ENCOUNTER → 2023-01-06 07:12 | Outpatient (CLI) | payer MEDICARE, SELFPAY | PROVIDERS: PCP Internal Medicine Adolescent Medicine; Visit Provider Internal Medicine | DX: I48.0 Paroxysmal atrial fibrillation (principal); R06.00 Dyspnea, unspecified; R94.31 Abnormal electrocardiogram [ECG] [EKG] | CPT/HCPCS: 93306 ==

== ENCOUNTER → 2023-01-07 06:47 | Outpatient (CLI) | payer MEDICARE, SELFPAY ==
--- NOTE | 2023-01-07 07:20 | NM_ITS ---
APPROVED REPORT Exam: Nuclear Stress Test Indication: abn ecg..fatigue..hypertension..family hx Patient Location: Outpatient Stress Tech: Lynette Pabon [place] Tech:Zulema Mann BRADLEYZoraida RT(R)(N) Ht: 5 ft 2 in Wt: 226 lbs Bra Size: 42dd HR: 73 bpm BP: 142/78 mmHg BSA: 2.01 m2 TID: 1.33 BMI: 41.3 History: abn ecg..fatigue..hypertension..family hx Procedure: Patient received 0.4 mg of intravenous Lexiscan, resting heart rate 73 bpm, resting blood pressure 142/78 mmHg, with Lexiscan maximum heart rate achieved was 123 bpm which is 85 % of the maximum predicted heart rate and blood pressure was 142/78 mmHg. With Lexiscan, patient denied any complaint of chest pain. Cardiac Stress and Resting SPECT Images: Cardiac Stress and Resting SPECT images were obtained using technetium 99m Myoview 31.3 mCi stress and 10.39 mCi at rest. Resting and stress imaging in both supine and prone positions demonstrate a medium-sized, mild, predominantly reversible defect in the anterior LV wall. There is elevated transient ischemic dilatation ratio (TID=1.33) suggestive of possible balanced ischemia or multivessel disease. Gated imaging demosntrates normal LV global and regional systolic function. LVEF is calculated at 59%. Conclusion: Medium-sized, mild, predominantly reversible defect in the anterior LV wall. Elevated transient ischemic dilatation ratio (TID=1.33) suggestive of possible balanced ischemia or multivessel disease. Gated imaging demosntrates normal LV global and regional systolic function. LVEF is calculated at 59%. Electronically signed by : Sandrita Corona, 01/07/2023 18:35:55
--- NOTE | 2023-01-07 09:59 | CA_ITS ---
APPROVED REPORT Exam: Pharmacologic Technologist: Lynette Charles, Ht: 5 ft 2 in Wt: 231 lbs BSA: 2.03 m2 HR: 68 bpm BP: 142/78 mmHg Rhythm: Atrial Fibrillation Medical History Medications: Levothyroxine,,,,, Aspirin,,,,, Trazadone,,,,, Ferrous sulfate,,,,, Vitamin C,,,,, Vitamin B12,,,,, MeLOXICAM,,,,, CetIRIZINE,,,,, OmeGA 3,,,,, BisOPROLOL-Hydrochlorothiazide,,,,, Stress Test Details Test: CHASE Reason for pharmacologic stress test: physical limitation. HR Resting HR: 73 bpm Max Heart Rate (APMHR): 151 bpm Max HR Achieved: 123 bpm Target HR (85% APMHR): 128 bpm % of APMHR: 81 Recovery HR: 80 bpm BP Resting BP: 142.0/78.0 mmHg Max BP: 142.0/78.0 mmHg Recovery BP: 123.0/63.0 mmHg ECG Resting ECG: Ectopic atrial rhythm, frequent PACs, Q-waves in inferior leads ST Change: No change Arrhythmia: APC's Recovery Arrhythmia: APC Clinical Exercise duration: 04:00 min Highest Stage Achieved: Exercise capacity: 1.0 METs Stress ECG Conclusion Symptoms: headache ST-T Changes: No change Conclusion: Baseline ECG demonstrates ectopic atrial rhythm, frequent PACs, Q-waves in inferior leads. There was no evidence of ischemia following regadenoson administration. Test Summary REST . . . . . . . Resting REST 05:33 . . 73 . 142/ 78 . . Stage 1 . . . . . . . Myoview Injected Stage 1 01:00 . . 96 . . . . Stage 2 01:00 . . 92 . . . . Stage 3 01:00 . . 90 . 125/ 69 . . Stage 4 01:00 . . 88 . 129/ 68 . Stop exercise at 04:00 RECOVERY 01:00 . . 84 . . . . RECOVERY 02:00 . . 117 . 133/ 68 . . RECOVERY 03:00 . . 90 . 133/ 68 . . RECOVERY 04:00 . . 107 . 133/ 68 . . RECOVERY 04:26 . . 77 . 123/ 63 . . Electronically signed by : Sandrita Corona, 01/07/2023 18:31:18
== END ==
LOC: RAD 06:48
PROVIDERS: PCP Internal Medicine Adolescent Medicine; Visit Provider Physician Assistant
DX: R06.00 Dyspnea, unspecified (principal); R42 Dizziness and giddiness; R94.31 Abnormal electrocardiogram [ECG] [EKG]; Z82.49 Family history of ischemic heart disease and other diseases of the circulatory system
CPT/HCPCS: 78452; 93017; A9502; J2785

== ENCOUNTER 2023-01-20 10:35 | Day surgery (SDC) | payer MEDICARE, SELFPAY ==
[2023-01-20] VITALS (13 sets, daily range): BP systolic 115–137; BP diastolic 51–87; PULSE 57–72; RESP 16–19; TEMP 36.9; O2SAT 93–99; BMI 42.0
--- NOTE | 2023-01-20 07:13 | IR_ITS ---
APPROVED REPORT Patient Location: Outpatient PROCEDURES Left heart catheterization Left ventriculogram Selective coronary angiogram Drug-eluting stent deployment to the proximal and mid LAD Drug-eluting stent deployment in the ostial proximal first diagonal artery INDICATION Coronary artery disease, Angina pectoris, High risk abnormal Myoview with anterior ischemia, Informed consent was obtained prior to the procedure. COMPLICATIONS None Estimated Blood Loss: Less than 10 mls TECHNIQUE One percent lidocaine used to anesthetize the right anterior aspect of the wrist. The right radial artery was accessed via the Seldinger technique. A 6 Nigerien sheath was placed in the right radial artery. 150 mg magnesium sulfate, 800 mcg of nitroglycerin, 1mg Lidocaine and 5000 U Heparin were given through the arterial sheath. The papa catheter was also used to perform left heart catheterization, left ventriculogram and selective coronary angiogram. At the end the diagnostic angiogram therapeutic heparin was administered giving a therapeutic ACT and the guide catheter was placed in left main artery followed by 2 choice extra-support wires being placed 1 down the LAD 1 in the first diagonal artery. A 2 mm x 12 mm balloon was deployed in the ostial proximal LAD reducing the stenosis. Following this a 3 mm x 22 mm frontier [place] stent was deployed at 20 merly reducing the proximal LAD stenosis to 0%. The wire was placed back in the first diagonal artery where a 2 mm x 12 mm compliant balloon was used to open the struts going into the diagonal artery. Following this a 2.25 x 22 mm frontier [place] stent was deployed at 18 merly reducing the critical stenosis to 0%. A 3 mm x 12 mm noncompliant balloon was then placed in the LAD adjacent from the first diagonal artery and deployed at 20 merly to post dilate. MARIXA III flow was present before and after the procedure and the LAD with MARIXA II flow being present in the diagonal artery at the beginning of the procedure and MARIXA-3 flow at the end of the procedure. In the procedure the apparatus was removed the sheath was removed and hemostasis was achieved using TR banding patient was transferred to the postop putting a stable condition ANGIOGRAPHIC RESULTS The left main artery Normal The left anterior descending artery Has a proximal 60 to 70% stenosis followed by a widely patent remaining LAD. A large first diagonal artery has an ostial proximal greater than 90% stenosis. The circumflex artery Nondominant with 10% luminal regularities The right coronary artery Large dominant vessel with proximal and mid vessel 10% luminal irregularities. Distally there is a 50 to 60% stenosis immediately proximal to a large posterior descending artery and moderate-sized posterior lateral branch. The 60% stenosis disease extends into the ostial segments of both the PDA and the PLV B with 40 to 50% in severity The BURGESS ventriculogram reveals Not performed The left ventricular end-diastolic pressure Not measured IMPRESSION Severe critical disease in the proximal LAD and first diagonal artery respectively Successful stenting the proximal to mid LAD with successful bifurcating stent in the first diagonal artery severe and critical disease reduced to 0% with 2 stents placed in a bifurcating manner as described above Moderate to severe disease in the distal dominant right coronary artery which is best managed medically at this time PLAN 1. Dual antiplatelet therapy 2. LDL less than 55 to be achieved with high intensity statin 3. Avoidance of tobacco products 4. Risk factor modification 5. Should angina recur or return consideration would be given to revascularize the right coronary artery.
[2023-01-20 11:05] LABS: Basophils % 0.3 % (0.1-2.0); Eosinophils # 0.1 K/mm3 (0.0-0.4); Eosinophils % 2.2 % (0.1-12.0); Hematocrit 41.3 % (37.0-47.0); Lymphocytes # 2.1 K/mm3 (0.7-4.5); Lymphocytes % 34.7 % (10-50); Mean Corpuscular HGB Conc 31.6 g/dL (31.8-35.4); Mean Corpuscular Hemoglobin 30.1 pg (27.0-31.2); Mean Corpuscular Volume 95.3 fl (81-99); Mean Platelet Volume 7.5 fl (7.4-10.4); Monocytes # 0.3 K/mm3 (0.1-1.0); Neutrophils # 3.5 K/mm3 (1.8-7.8); Neutrophils % 57.8 % (37.0-80.0); Platelet Count 238 K/mm3 (142-424); Red Blood Count 4.34 M/mm3 (4.20-5.40); Red Cell Distribution Width 13.8 % (11.5-17.5); White Blood Count 6.1 K/mm3 (4.8-10.8)
[2023-01-20 11:15] LABS: Chloride 102 mmol/L (98-107); Sodium 141 mmol/L (136-145)
[2023-01-20 11:18] LABS: Blood Urea Nitrogen 17 mg/dl (7-17); Creatinine Clearance Estimated 42 mL/min (50-200); Estimated Glomerular Filt Rate 62 ml/min (>60); GFR (African American) 75 ML/MIN (>60)
[2023-01-20 11:19] LABS: Calcium 9.5 mg/dl (8.4-10.2); Carbon Dioxide 32 mmol/L (22.0-30.0); Glucose 107 mg/dl (74-100)
[2023-01-20 12:57] LABS: CATHL Activated Clotting Time 255 SEC (74-125)
--- NOTE | 2023-01-20 15:25 | HMH.PHACL ---
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 -BISOPROLOL/HCTZ (ON PREVIOUSLY, NO QUESTIONS) -NO BROOKE/ARB DUE TO BP TO LOW PER MD. PATIENT STATES SHE THINKS SHE ALREADY TAKES A CHOLESTEROL MEDICATION. 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 NO FURTHER QUESTIONS AT THIS TIME.
== END 2023-01-20 15:29 | disposition home or self-care (01) ==
PROVIDERS: PCP Internal Medicine Adolescent Medicine; Visit Provider Internal Medicine
DX: I25.118 Atherosclerotic heart disease of native coronary artery with other forms of angina pectoris (principal); I48.0 Paroxysmal atrial fibrillation; R06.00 Dyspnea, unspecified; R94.31 Abnormal electrocardiogram [ECG] [EKG]; R94.39 Abnormal result of other cardiovascular function study; Z82.49 Family history of ischemic heart disease and other diseases of the circulatory system; Z79.899 Other long term (current) drug therapy
CPT/HCPCS: 80048; 85025; 85347; 92928; 92929; 93458; 99152; 99153; C1725; C1769; C1876; C9600; C9601; J1644; Q9967

== ENCOUNTER → 2023-02-07 08:05 | Outpatient (CLI) | payer MEDICARE, SELFPAY ==
--- NOTE | 2023-02-07 08:21 | MM_ITS ---
PROCEDURE INFORMATION: Exam: MG Bilateral Screening 3D Mammography Exam date and time: 02/07/2023 8:10 AM Age: 67 years old Clinical indication: Screening examination . Family history of breast carcinoma. TECHNIQUE: Imaging protocol: Bilateral Screening tomosynthesis and 2D mammography including computer-aided detection (CAD) when performed. COMPARISON: 1. MG MM DIG SCREENING MAMM BI W/CAD 02/04/2022 9:12 AM 2. MG MM DIG SCREENING MAMM BI W/CAD 01/21/2021 1:20 PM 3. MG MM DIG SCREENING MAMM BI W/CAD 01/21/2020 9:04 AM FINDINGS: MAMMOGRAPHY: Breast composition: There are scattered areas of fibroglandular density. Mass: No suspicious masses. Architectural distortion: No suspicious distortion. Calcifications: No suspicious calcifications. Asymmetric density: None. Skin thickening: None. Axillary adenopathy: None. IMPRESSION: 1. No mammographic evidence of malignancy. Annual screening is recommended unless otherwise clinically indicated. 2. Given the reported risk factors for this patient, a breast cancer risk assessment may prove useful for further evaluation. ASSESSMENT: BI-RADS Category 1: Negative
[2023-02-07 09:34] LABS: Basophils % 0.6 % (0.1-2.0); Eosinophils # 0.1 K/mm3 (0.0-0.4); Eosinophils % 1.9 % (0.1-12.0); Hemoglobin 12.8 g/dL (12.2-16.2); Lymphocytes # 1.9 K/mm3 (0.7-4.5); Lymphocytes % 29.2 % (10-50); Mean Corpuscular Volume 93.8 fl (81-99); Mean Platelet Volume 7.6 fl (7.4-10.4); Monocytes # 0.4 K/mm3 (0.1-1.0); Monocytes % 5.9 % (1.7-9.3); Neutrophils # 4.1 K/mm3 (1.8-7.8); Neutrophils % 62.4 % (37.0-80.0); Platelet Count 244 K/mm3 (142-424); Red Blood Count 4.27 M/mm3 (4.20-5.40); Red Cell Distribution Width 13.7 % (11.5-17.5); White Blood Count 6.5 K/mm3 (4.8-10.8)
[2023-02-07 10:36] LABS: Chloride 100 mmol/L (98-107); Potassium 3.6 mmoL/L (3.5-5.1); Sodium 140 mmol/L (136-145)
[2023-02-07 10:39] LABS: Anion Gap 13.6 mEq/L (5-15); Blood Urea Nitrogen 14 mg/dl (7-17); Carbon Dioxide 30 mmol/L (22.0-30.0); Estimated Glomerular Filt Rate 71 ml/min (>60); GFR (African American) 86 ML/MIN (>60)
[2023-02-07 10:40] LABS: Calcium 9.3 mg/dl (8.4-10.2); Glucose 94 mg/dl (74-100)
== END ==
PROVIDERS: PCP Internal Medicine; Visit Provider Nurse Practitioner Family
DX: Z12.31 Encounter for screening mammogram for malignant neoplasm of breast (principal); I25.10 Atherosclerotic heart disease of native coronary artery without angina pectoris; Z95.5 Presence of coronary angioplasty implant and graft
CPT/HCPCS: 36415; 77063; 77067; 80048; 85025

== ENCOUNTER → 2023-02-08 15:43 | Outpatient (CLI) | payer MEDICARE, SELFPAY | PROVIDERS: PCP Internal Medicine Adolescent Medicine; Visit Provider Nurse Practitioner Family | DX: R06.09 Other forms of dyspnea (principal); I48.0 Paroxysmal atrial fibrillation | CPT/HCPCS: 93270 ==

== ENCOUNTER 2023-02-10 09:26 | Day surgery (SDC) | payer MEDICARE, SELFPAY ==
[2023-02-10] VITALS (20 sets, daily range): BP systolic 100–161; BP diastolic 54–84; PULSE 74–87; RESP 16–19; TEMP 36.3; O2SAT 92–100; BMI 41.3
--- NOTE | 2023-02-10 09:26 | ECG_ITS ---
APPROVED REPORT Exam: Resting ECG HR:80 bpm ECG Measurements Heart Rate 80 AXES MT 149 P 60 QRSd 81 QRS 39 QT 361 T -9 QTc 397 Conclusion SINUS RHYTHM NONSPECIFIC T-WAVE ABNORMALITY BORDERLINE ECG UNCONFIRMED REPORT Electronically signed by : Marcos Foster MD 02/10/2023 22:20:36
--- NOTE | 2023-02-10 09:44 | XR_ITS ---
FINAL REPORT CLINICAL HISTORY: chest pain FINDINGS: TWO VIEW CHEST The heart size is normal. The mediastinum is normal. The lungs are clear. There is no pneumothorax. IMPRESSION: No acute cardiopulmonary process. Reviewed, Interpreted and Dictated by Phillip Butler III, MD Transcribed by Matilde Rose Authenticated and [facility]
--- NOTE | 2023-02-10 09:57 | ECG_ITS ---
APPROVED REPORT Exam: Resting ECG HR:80 bpm ECG Measurements Heart Rate 80 AXES NJ 161 P 78 QRSd 79 QRS 45 QT 358 T 28 QTc 393 Conclusion SINUS RHYTHM WITH SINUS ARRHYTHMIA NORMAL ECG UNCONFIRMED REPORT Electronically signed by : Marcos Foster MD 02/10/2023 22:20:21
--- NOTE | 2023-02-10 09:59 | PC.NURSE ---
Dr. Weir at BS
[2023-02-10 10:00] LABS: Basophils % 0.4 % (0.1-2.0); Eosinophils # 0.1 K/mm3 (0.0-0.4); Eosinophils % 1.5 % (0.1-12.0); Hematocrit 40.4 % (37.0-47.0); Hemoglobin 12.9 g/dL (12.2-16.2); Lymphocytes # 2.3 K/mm3 (0.7-4.5); Lymphocytes % 24.4 % (10-50); Mean Corpuscular HGB Conc 32.1 g/dL (31.8-35.4); Mean Corpuscular Hemoglobin 30.3 pg (27.0-31.2); Mean Corpuscular Volume 94.4 fl (81-99); Mean Platelet Volume 7.4 fl (7.4-10.4); Monocytes # 0.4 K/mm3 (0.1-1.0); Monocytes % 4.5 % (1.7-9.3); Neutrophils # 6.4 K/mm3 (1.8-7.8); Neutrophils % 69.1 % (37.0-80.0); Platelet Count 219 K/mm3 (142-424); Red Blood Count 4.28 M/mm3 (4.20-5.40); Red Cell Distribution Width 13.7 % (11.5-17.5); White Blood Count 9.2 K/mm3 (4.8-10.8)
--- NOTE | 2023-02-10 10:01 | PC.NURSE ---
repeat EKG per MD due to continued chest pain, EKG read by MD, no new orders at this time. Family at bs
--- NOTE | 2023-02-10 10:10 | HMH.EDGENADL ---
Discharge Plan Disposition Patient Disposition: Admitted Chief Complaint: Chest Pain Prescriptions Prescriptions: No Action trazodone 50 mg tablet 100 mg PO DAILY cetirizine 10 mg tablet 10 mg PO DAILY PRN meloxicam 15 mg tablet 15 mg PO DAILY bisoprolol-hydrochlorothiazide 2.5-6.25 mg tablet 1 tab PO DAILY levothyroxine 50 mcg tablet 50 mcg PO DAILY cyanocobalamin (vitamin B-12) 1,000 mcg/mL solution 1,000 mcg SQ QMONTH ferrous sulfate [Feosol] 325 mg (65 mg iron) tablet 325 mg PO DAILY aspirin 81 mg tablet 81 mg PO DAILY omega 5-tnf-ebd-fish oil [Fish Oil] 1,000 mg (120 mg-180 mg) capsule 1 cap PO TID ascorbic acid (vitamin C) 500 mg capsule 500 mg PO DAILY Brilinta 90 mg tablet 90 mg PO BID Qty: 60 11RF atorvastatin [Lipitor] 40 mg Tablet 40 mg PO HS Qty: 30 3RF Clinical Impressions Clinical Impression: Chest pain Discharge ED Provider: Samara Weir General Adult HPI General Chief complaint: Chest Pain Stated complaint: cp Time Seen by Provider: 02/10/23 09:48 Mode of Arrival: Ambulatory Source of Information: Patient Limitations: No Limitations Description of Symptoms (Recalled from ER Triage Doc. by RN): Presents to ED with complaints of midsternal chest pain that started at 0700 while laying in bed. Patient reports having 2 stents placed 3 weeks ago by . Patient describes pain as heaviness in her chest that worsens when she breathes. +Brilinta. 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 History of Present Illness HPI narrative: Patient is a 67-year-old female presenting today with chest pain. States that few months ago she started having dyspnea on exertion and some fatigue and went to her primary care physician where she was found to have atrial fibrillation with a Holter monitor that she was given a cardiology consult where she subsequently had stress test showing show reversible ischemic area concerning for coronary artery disease and she had a left heart cath 3 weeks ago with multiple stents that were placed and was put on dual antiplatelet therapy. She states that her fatigue and dyspnea on exertion went away immediately and that she has been feeling better up until this morning. This morning she developed some substernal chest discomfort nonradiating not associate with any significant dyspnea she describes it as heaviness there is no nausea associated with it. She has not missed any doses of her medications upon discharge. Related Data Home Medications Medication Instructions Recorded Confirmed ascorbic acid (vitamin C) 500 mg 500 mg PO DAILY 12/14/22 02/08/23 capsule aspirin 81 mg tablet 81 mg PO DAILY 12/14/22 02/08/23 bisoprolol 2.5 1 tab PO DAILY 12/14/22 02/08/23 mg-hydrochlorothiazide 6.25 mg tablet cetirizine 10 mg tablet 10 mg PO DAILY PRN 12/14/22 02/08/23 cyanocobalamin (vitamin B-12) 1,000 mcg SQ QMONTH 12/14/22 02/08/23 1,000 mcg/mL injection solution ferrous sulfate 325 mg (65 mg 325 mg PO DAILY 12/14/22 02/08/23 iron) tablet (Feosol) levothyroxine 50 mcg tablet 50 mcg PO DAILY 12/14/22 02/08/23 meloxicam 15 mg tablet 15 mg PO DAILY 12/14/22 02/08/23 omega 7-woe-hdj-fish oil 1,000 mg 1 cap PO TID 12/14/22 02/08/23 (120 mg-180 mg) capsule (Fish Oil) trazodone 50 mg tablet 100 mg PO DAILY 12/14/22 02/08/23 Previous Rx's Medication Instructions Recorded atorvastatin 40 mg tablet (Lipitor) 40 mg PO HS #30 tabs 01/20/23 ticagrelor 90 mg tablet (Brilinta) 90 mg PO BID #60 tabs 02/08/23 Allergies Allergy/AdvReac Type Severity Reaction Status Date / Time promethazine [From [facility]] Allergy Unknown SICK Verified 02/08/23 15:16 [facility] Disclaimer: The information contained in this section may have been updated after the patient was seen, as this information can be updated by other users. Medical History (Updated 02/10/23 @ 12:50 by Samara Weir MD) Coronary artery disease [place]
--- NOTE | 2023-02-10 10:20 | PC.NURSE ---
Additional warm blanket provided. Pt updated on plan of care. Family remains at bedside. No further complaints at this time.
[2023-02-10 10:28] LABS: Alanine Aminotransferase 23 U/L (12-78); Albumin Level 4.1 g/dl (3.5-5.0); Albumin/Globulin Ratio 1.3 (1.1-1.8); Alkaline Phosphatase 107 U/L (38-126); Anion Gap 13.8 mEq/L (5-15); Aspartate Amino Transferase 46 U/L (14-36); Bilirubin,Total 0.3 mg/dl (0.2-1.3); Blood Urea Nitrogen 20 mg/dl (7-17); Calcium 9.1 mg/dl (8.4-10.2); Carbon Dioxide 28 mmol/L (22.0-30.0); Chloride 102 mmol/L (98-107); Creatinine Clearance Estimated 42 mL/min (50-200); Estimated Glomerular Filt Rate 71 ml/min (>60); GFR (African American) 86 ML/MIN (>60); Globulin 3.1 g/dL (1.3-3.2); Glucose 107 mg/dl (74-100); Potassium 3.8 mmoL/L (3.5-5.1); Sodium 140 mmol/L (136-145); Total Protein,Serum 7.2 g/dl (6.3-8.2)
[2023-02-10 10:33] LABS: D-Dimer 1.01 ug/mL (0.0-0.5)
--- NOTE | 2023-02-10 10:37 | CT_ITS ---
FINAL REPORT TECHNIQUE: Then section axial CT images of the chest were obtained with contrast. Three-D reformatted images were also obtained.This study was performed with techniques to keep radiation doses as low as reasonably achievable (ALARA). Individualized dose reduction techniques using automated exposure control or adjustment of mA and/or kV according to the patient''s size were employed. CLINICAL HISTORY: chest pain, elevated dimer >1 FINDINGS: There is no evidence of pulmonary embolism. There is no evidence of thoracic aortic aneurysm or dissection. There is no evidence of mediastinal or hilar mass or adenopathy. There is no evidence of pulmonary mass or suspicious nodule. There is mild dependent atelectasis. Limited images of the upper abdomen are unremarkable. IMPRESSION: No evidence of pulmonary embolism or aortic dissection. No mass or localized inflammatory process. Reviewed, Interpreted and Dictated by Phillip Butler III, MD Transcribed by Wendy Yost Authenticated and [facility]
[2023-02-10 10:42] LABS: Troponin I < 0.01 ng/ml (0.00-0.034)
--- NOTE | 2023-02-10 11:11 | PC.NURSE ---
[employer] paging Dr. Mari at this time
--- NOTE | 2023-02-10 11:13 | PC.NURSE ---
Dr. Weir speaking with Dr. Mari
--- NOTE | 2023-02-10 11:15 | PC.NURSE ---
pt states that her pain went from 8 to a 4 after dose of SL nitro. Pt tolerated well. aware, family at bs
--- NOTE | 2023-02-10 11:22 | PC.NURSE ---
patient given a pillow for comfort.
--- NOTE | 2023-02-10 11:25 | PC.NURSE ---
PT RECEIVED PILLOW , FAMILY AT BS
--- NOTE | 2023-02-10 11:31 | PC.NURSE ---
at bs with TIFFANY Calero
--- NOTE | 2023-02-10 12:28 | PC.NURSE ---
PAtient changed into a gown and dye lab technician consent has been signed.
--- NOTE | 2023-02-10 12:51 | IR_ITS ---
APPROVED REPORT Patient Location: Inpatient Lab Support Service Tech: JAH Wray RT (R) PROCEDURES Selective coronary angiogram INDICATION Recent proximal LAD and first diagonal artery stenting, Unstable angina, Dynamic EKG changes Informed consent was obtained prior to the procedure. COMPLICATIONS None Estimated Blood Loss: Less than 10 mls TECHNIQUE One percent lidocaine used to anesthetize the right anterior aspect of the wrist. The right radial artery was accessed via the Seldinger technique. A 6 Frisian sheath was placed in the right radial artery. 150 mg magnesium sulfate, 800 mcg of nitroglycerin, 1mg Lidocaine and 5000 U Heparin were given through the arterial sheath. The papa catheter was also used to perform selective coronary angiography. At the end of the procedure the sheath was removed good hemostasis was achieved using Traclet band, patient was transferred to the postop holding area in stable condition. ANGIOGRAPHIC RESULTS The left main artery Normal The left anterior descending artery Has a stent in the proximal to mid segment which is widely patent free of in-stent restenosis with excellent proximal distal transitioning. A large first diagonal artery originates within the proximal LAD stented area and also has a bifurcating stent in the ostial proximal diagonal artery which is widely patent free of in-stent restenosis or thrombosis with excellent distal transitioning The circumflex artery Nondominant with mild mid vessel 10% luminal irregularities The right coronary artery Large dominant with the distal telescoping 50 to 60% stenosis which extends into the posterior descending artery and posterior lateral branch The BURGESS ventriculogram reveals Not performed The left ventricular end-diastolic pressure Not measured IMPRESSION Widely patent proximal LAD stent with a bifurcating stent into a large first diagonal artery accompanied by MARIXA-3 flow with excellent stent transitioning in both the LAD and diagonal artery proximally and distally No change in the right coronary artery stenosis On the certain stent arteritis/spasm creating the angina PLAN 1. Continue standard therapy for ischemic heart disease 2. Add Imdur 34 vasospasm 3. Add Ranexa 500 twice daily and uptitrate to 1000 twice daily as an outpatient 4. Return to clinic in 1 week Electronically signed by : Everton Mari MD 02/10/2023 14:37:01
--- NOTE | 2023-02-10 12:51 | PC.NURSE ---
Updated family and patient on plan of care. Call infante within reach of patient.
[2023-02-10 13:19] LABS: Troponin I < 0.01 ng/ml (0.00-0.034)
--- NOTE | 2023-02-10 13:23 | EXP.CARD.CON ---
History of Present Illness History of Present Illness Consult date: 02/10/23 Requesting physician: Samara Weir Chief complaint: chest pain History of present illness: 67 year old white female with past medical hx of CAD, PAF, HTN and HLD presented to ER with complaint of chest pain. ER NOTE Patient is a 67-year-old female presenting with chest discomfort 3 weeks after having left heart cath with multiple stents placed. She has been compliant with her dual antiplatelet therapy serial EKGs at this point have not demonstrated any STEMI and a stent rethrombosis is incredibly unlikely. First EKG showed a ventricular rate of [address] segment elevations depressions or T wave inversions to suggest ischemia otherwise normal EKG and is in normal sinus rhythm second EKG was functionally unchanged no progressive ischemic changes. I also did a limited bedside ultrasound which did not show any regional wall motion abnormalities or any pericardial effusion. At this point a stent rethrombosis is incredibly unlikely but we will get serial troponins to rule this out. Is unclear as to what is causing her chest discomfort but is unlikely to be acute myocardial injury. Cannot use PERC to rule out this patient given her age we will get a D-dimer with a D-dimer cutoff of 1.0 using years criteria. A dose of morphine has been given for her pain control. Will reassess. Reassessment 12:49 PM patient D-dimer was elevated and CT PE was performed which was unremarkable. Patient continued to have chest pain gave her nitroglycerin with some improvement. Discussed the case with Dr. Mari who came to the bedside to evaluate her. Based on his most recent cath she had some right coronary vessel disease which she at that time considered could take back to the Member Of Technical Staff if she had recurrent angina. They reviewed her images and saw the patient and decided to take the patient back to the Member Of Technical Staff. Patient was admitted in stable condition. No evidence of AMI at this point. Cardiology note: Patient reports developed midsternal chest pain this morning at 7 am which resovled with nitro. EKG and Images from [facility] from 01/21/[address] Mari[address] [facility] Disclaimer: The information contained in this section may have been updated after the patient was seen, as this information can be updated by other users. Medical History (Updated 02/10/23 @ 13:39 by Galilea Juarez APRN) Coronary artery disease Surgical History (Updated 02/08/23 @ 15:19 by Mallory Monae RN) History of coronary artery stent placement Social History Smoking Status: Never smoker alcohol intake: never current occupational status: other Travel in the last 8 weeks: None housing: house Review of Systems Review of Systems Review of systems:: pertinent systems reviewed and negative unless documented below Constitutional Constitutional: Reports system reviewed and no additional complaints, except as documented *Cardiovascular Cardiovascular: Reports chest pain *Respiratory Respiratory: Reports system reviewed and no additional complaints, except as documented *Gastrointestinal Gastrointestinal: Reports system reviewed and no additional complaints, except as documented *Neurologic Neurologic: Reports system reviewed and no additional complaints, except as documented and Denies confusion Psychiatric Psychiatric: Reports system reviewed and no additional complaints, except as documented and Denies confusion Exam Data for Last 24 hours Vital signs and Labs for Last 24 Hours: Temp Pulse Resp BP Pulse Ox 97.3 F L 77 16 113/84 96 02/10/23 13:03 02/10/23 13:03 02/10/23 13:03 02/10/23 13:03 02/10/23 11:31 Laboratory Results - last 24 hr 02/10/23 09:30: WBC 9.2, RBC 4.28, Hgb 12.9, Hct 40.4, MCV 94.4, MCH 30.3, MCHC 32.1, RDW 13.7, Plt Count 219, MPV 7.4, Neut % (Auto) 69.1, Lymph % (Auto) 24.4, [place] % (A
== END 2023-02-10 15:43 | disposition home or self-care (01) ==
LOC: ER 12:50 → CATHLAB 13:06
PROVIDERS: Emergency Provider Student in an Organized Health Care Education/Training Program; PCP Internal Medicine Adolescent Medicine; Visit Provider Internal Medicine
DX: R07.9 Chest pain, unspecified (principal); I25.10 Atherosclerotic heart disease of native coronary artery without angina pectoris; I48.91 Unspecified atrial fibrillation
CPT/HCPCS: 36415; 71046; 71275; 80053; 84484; 85025; 85378; 93005; 96361; 96374; 96375; 99152; 99285; C1725; C1769; J1644; Q9967

== ENCOUNTER → 2023-03-08 10:48 | Outpatient (CLI) | payer MEDICARE, SELFPAY | PROVIDERS: PCP Internal Medicine Adolescent Medicine; Visit Provider Plastic Surgery | DX: R07.9 Chest pain, unspecified (principal) ==

== ENCOUNTER → 2023-03-09 11:47 | Outpatient (CLI) | payer MEDICARE, SELFPAY | PROVIDERS: PCP Internal Medicine Adolescent Medicine; Visit Provider Physician Assistant | DX: R00.2 Palpitations (principal) | CPT/HCPCS: 93225; 93226 ==

== ENCOUNTER 2023-11-22 10:50 | Outpatient (POV) | payer MEDICARE, SELFPAY | END 2023-11-22 23:59 | disposition home or self-care (01) | LOC: SC 10:51 | PROVIDERS: PCP Internal Medicine Adolescent Medicine; Visit Provider Dermatology | DX: Z00.00 Encounter for general adult medical examination without abnormal findings (principal) ==

== ENCOUNTER 2024-02-09 08:12 | Outpatient (CLI) | payer MEDICARE, SELFPAY ==
--- NOTE | 2024-02-09 08:29 | MM_ITS ---
PROCEDURE INFORMATION: Exam: MG Bilateral Screening 3D Mammography Exam date and time: 02/09/2024 8:30 AM Age: 68 years old Clinical indication: Screening examination. Family history of breast carcinoma. History of benign left breast biopsy. TECHNIQUE: Imaging protocol: Bilateral Screening tomosynthesis and 2D mammography including computer-aided detection (CAD) when performed. COMPARISON: 1. MG MM DIG SCREENING MAMM BI W/CAD 02/07/2023 8:10 AM 2. MG MM DIG SCREENING MAMM BI W/CAD 02/04/2022 9:12 AM 3. MG MM DIG SCREENING MAMM BI W/CAD 01/21/2021 1:20 PM FINDINGS: MAMMOGRAPHY: Breast composition: There are scattered areas of fibroglandular density. Mass: No suspicious masses. Architectural distortion: No suspicious distortion. Calcifications: No suspicious calcifications. Asymmetric density: None. Skin thickening: None. Axillary adenopathy: None. IMPRESSION: 1. No mammographic evidence of malignancy. Annual screening is recommended unless otherwise clinically indicated. 2. Given the reported risk factors for this patient, a breast cancer risk assessment may prove useful for further evaluation. ASSESSMENT: BI-RADS Category 1: Negative
== END 2024-02-09 23:59 | disposition home or self-care (01) ==
LOC: RAD 08:12
PROVIDERS: PCP Internal Medicine Adolescent Medicine; Visit Provider Internal Medicine Adolescent Medicine
DX: Z12.31 Encounter for screening mammogram for malignant neoplasm of breast (principal)
CPT/HCPCS: 77063; 77067

== ENCOUNTER 2024-03-15 08:55 | Outpatient (CLI) | payer MEDICARE, SELFPAY ==
--- NOTE | 2024-03-15 08:59 | XR_ITS ---
FINAL REPORT TECHNIQUE: Bone densitometry calculations of the lumbar spine and left hip were obtained. CLINICAL HISTORY: SCREENING COMPARISON: None FINDINGS: Using L1-4, the bone mineral density of the spine is 1.060 g/cm2, corresponding to T-score of 0.1. Using the left hip, the bone mineral density of the femoral neck is 0.808 g/cm2, corresponding to a T-score of -0.4. NOTE: T-score: Standard deviation compared with peak bone mass of young adult mean. *Following the recommendations of the International Society of Bone densitometry, classification of hip BMD is based on the lower of two T-scores; total hip or femoral neck. IMPRESSION: Normal bone mineral density of the lumbar spine and hip. Reviewed, Interpreted and Dictated by Cleve Hester MD Transcribed by Laura Oliva Authenticated and [facility]
== END 2024-03-15 23:59 | disposition home or self-care (01) ==
LOC: RAD 08:56
PROVIDERS: PCP Nurse Practitioner Family; Visit Provider Nurse Practitioner Family
DX: Z78.0 Asymptomatic menopausal state (principal); Z13.820 Encounter for screening for osteoporosis
CPT/HCPCS: 77080

== ENCOUNTER 2024-05-18 06:10 | Day surgery (SDC) | payer MEDICARE, SELFPAY ==
[2024-05-15 16:13] VITALS: BMI 43.9
[2024-05-18 06:32] VITALS: BP 150/90; PULSE 71; RESP 18; TEMP 36.1; O2SAT 98
[2024-05-18] MEDS: LACTATED RINGERS 1000ML 1,000 ML 25 ML IV (06:39)
[2024-05-18 06:42] LABS: POC Glucose,Bedside 98 (70-110)
--- NOTE | 2024-05-18 06:43 | P.PCN_ITS ---
Procedure: Date: 05/18/24 Patient Date of :: 1955 Procedure Performed:: Total colonoscopy to terminal ileum with multiple polypectomy and biopsy of cecal mass . Indications:: Patient is a 68-year-old female with history of coronary artery disease, atrial fibrillation (on Plavix and Xarelto), diabetes, hypertension, hyperlipidemia who presents for screening colonoscopy. I had previously performed colonoscopy on 11/20/2013 at which time she had rare diverticulosis. There were no adenomatous polyps. Performing Provider:: Phillip Infante MD Referring Provider:: Justus Desai Sedation:: MAC sedation . Procedure:: Patient history was obtained and appropriate physical examination was performed. Patient's medications and allergies were reviewed. Informed consent was obtained after explaining the benefits, alternatives, and risks of the procedure including, but not limited to, bleeding, perforation, missed lesions, and adverse reaction to anesthesia medications. Patient was transported to endoscopy procedure room. Patient was connected to monitoring devices. Throughout the procedure the patient's blood pressure, pulse, and oxygen saturations were monitored continuously. Patient identific ation and planned procedure were verified by the staff. Patient was positioned in lateral decubitus position. Digital anorectal exam was performed. Variable stiffness Olympus colonoscope was inserted and advanced under direct visualization to the cecum. Adequacy of the colonic preparation was noted. The colonoscope was advanced a short distance into the terminal ileum. The colonoscope was then slowly withdrawn while carefully examining the color, texture, anatomy, and integrity of the mucosoa circumferentially. Within the rectum retroflexion was performed. Colonoscope was then withdrawn. Impression: Colonic preparation was excellent. Upon insertion of the colonoscope and advancement there was noted to be a adenomatous polyp measuring several millimeters near the hepatic flexure removed with cold snare. In the ascending colon on a fold distal to the ileocecal valve there was a polyp removed with cold snare. Most notable within the cecum there was a large very flat sessile i rregular polypoid lesion. This was virtually Kofi circumferential. Attempt was made to inject Meagan view submucosally circumferentially around the lesion. Using the hot snare multiple portions of the lesion were removed but it could not be removed in its entirety. This was sent as cecal mass . In the descending colon there was a tiny diminutive polyp removed with biopsy forceps. Distal to this there was a moderate 8 to 10 mm pedunculated adenomatous polyp removed with hot snare. This could not be suctioned through the colonoscope and plan was made for removal in a piecemeal fashion using Wise net. However the polyp was then unable to be identified. The colonoscope was withdrawn through the remainder of the colon to the rectum. There was some sigmoid diverticulosis. The polyp was not identified. Colonoscope was advanced to the right colon and withdrawn again and the polyp was not identified. The colonoscope was then advanced once again and the polyp specimen was noted in the descending colon. Using suction continuously it was withdrawn with the colonoscope and sent as descending colon polyp #2. Retroflexion within the rectum revealed internal anal papilla. . Findings:: Polyps as noted above (4 small to moderate polyps removed by a variety of technique) Flat sessile adenomatous polypoid lesion Kofi circumferential in the cecum multiple biopsies obtained using hot snare after injection of Meagan view Sigmoid diverticulosis Internal anal papilla . Recommendations:: Likely will need cecal resection. May be amenable to laparoscopic resection particularly if biopsies are benign. Complications:: None immediately apparent Estimated blood obtained (mL): 2 Colonoscopy Component Colonoscopy Component Was a colonoscopy performed during today's procedure?: Yes Recommended follow up colonoscopy of at least 10 years?: No If no, follow up colonoscopy recommended in ___ years?: Unknown Reason for not recommending >/= 10 yr follow-up interval?: Pending pathology and ultimate treatment
--- NOTE | 2024-05-18 06:52 | P.PNANES_ITS ---
[facility] Disclaimer: The information contained in this section may have been updated after the patient was seen, as this information can be updated by other users. Medical History Diabetes mellitus, type 2 Hyperlipidemia Hypertension Family history of ischemic heart disease PAF (paroxysmal atrial fibrillation) Typical angina Coronary artery disease Surgical History H/O knee surgery History of coronary artery stent placement Family History Other No significant family history Social History (Updated 05/18/24 @ 06:39 by Anusha Ledezma RN) Smoking Status: Never smoker alcohol intake: never substance use type: denies use current occupational status: retired Travel in the last 8 weeks: None housing: house caffeine: Yes [facility] Anesthesia Checklist Patient Identification Patient Identification: Arm Band and Family Structural Data Admitted From: Home Planned Operative Procedure/s: Colonoscopy Consent for Planned Operative Procedure(s) Verified: Yes Verified Documents: Surgical Consent and History and Physical NPO Status Verified Time NPO: 00:00 Additional verifications Patient : No Anesthesia Reactions: No Hx Blood Transfusions: No Blood Transfusion Reaction: No Cephalosporin Allergy: No Previous Colonoscopy: No Airway Assessment Mallampati Score:: Class II C-Spine Mobility Assessed: Yes TMJ Mobility Assessed: Yes Dentition: Good Dentition Neurological Assessment Level of Consciousness: Awake, Alert, Appropriate and Follows Commands Hx Seizures: No Numbness or tingling in extremities: No Anesthesia Plan Anesthesia Risk discussed: Yes ASA Class: II Anesthesia Type: MAC
[2024-05-18 07:16] VITALS: O2SAT 98
[2024-05-18 08:21] VITALS: BP 89/53; PULSE 68; RESP 14; TEMP 36.2; O2SAT 92
[2024-05-18 08:31] VITALS: BP 118/76; PULSE 87; RESP 16; O2SAT 93
[2024-05-18 08:41] VITALS: BP 118/76; PULSE 62; RESP 16; O2SAT 100
[2024-05-18 08:51] VITALS: BP 137/82; PULSE 74; RESP 16; O2SAT 99
== END 2024-05-18 09:04 | disposition home or self-care (01) ==
PROVIDERS: PCP Nurse Practitioner Family; Visit Provider Surgery
PROC: 0DJD8ZZ Inspection of Lower Intestinal Tract, Via Natural or Artificial Opening Endoscopic (ICD-10-PCS; CPT 45380; principal; 2024-05-18 07:30)
DX: Z12.11 Encounter for screening for malignant neoplasm of colon (principal); K63.5 Polyp of colon; D12.0 Benign neoplasm of cecum; K57.30 Diverticulosis of large intestine without perforation or abscess without bleeding; E11.8 Type 2 diabetes mellitus with unspecified complications; Z79.84 Long term (current) use of oral hypoglycemic drugs
CPT/HCPCS: 45380; 45381; 45384; 45385; 82962; J2704; J7120

== ENCOUNTER 2024-10-11 10:29 | Outpatient (CLI) | payer MEDICARE, SELFPAY ==
[2024-10-11 11:00] LABS: Basophils % 0.2 % (0.1-2.0); Eosinophils # 0.2 K/mm3 (0.0-0.4); Hematocrit 37.4 % (37.0-47.0); Hemoglobin 12.3 g/dL (12.2-16.2); Lymphocytes # 2.1 K/mm3 (0.7-4.5); Lymphocytes % 25.4 % (10-50); Mean Corpuscular HGB Conc 32.9 g/dL (31.8-35.4); Mean Corpuscular Hemoglobin 30.8 pg (27.0-31.2); Mean Corpuscular Volume 93.7 fl (81-99); Mean Platelet Volume 9.8 fl (7.4-10.4); Monocytes # 0.5 K/mm3 (0.1-1.0); Monocytes % 5.6 % (1.7-9.3); Neutrophils # 5.3 K/mm3 (1.8-7.8); Neutrophils % 65.3 % (37.0-80.0); Platelet Count 195 K/mm3 (142-424); Red Blood Count 3.99 M/mm3 (4.20-5.40); Red Cell Distribution Width 13.2 % (11.5-17.5); White Blood Count 8.1 K/mm3 (4.8-10.8)
[2024-10-11 11:45] LABS: Alanine Aminotransferase 21 U/L (12-78); Albumin Level 4.1 g/dl (3.5-5.0); Alkaline Phosphatase 102 U/L (38-126); Anion Gap 6.5 mEq/L (5-15); Aspartate Amino Transferase 28 U/L (14-36); Bilirubin,Direct 0.4 mg/dl (0.0-0.4); Bilirubin,Indirect 0.1 mg/dL (0.0-0.9); Bilirubin,Total 0.5 mg/dl (0.2-1.3); Bilirubin,Unconjugated 0.1 mg/dL (0.0-1.1); Blood Urea Nitrogen 20 mg/dl (7-17); Calcium 9.6 mg/dl (8.4-10.2); Carbon Dioxide 32 mmol/L (22.0-30.0); Chloride 102 mmol/L (98-107); Chol/HDL Ratio 4.3 (1-3.5); Cholesterol 142 mg/dl (140-200); Estimated Glomerular Filt Rate 71 ml/min (>60); GFR (African American) 86 ML/MIN (>60); Glucose 102 mg/dl (74-100); HDL Cholesterol 33 mg/dl (40-60); Magnesium 1.9 mg/dl (1.6-2.3); Potassium 4.5 mmoL/L (3.5-5.1); Sodium 136 mmol/L (136-145); Total Protein,Serum 6.4 g/dl (6.3-8.2); Triglycerides 207 mg/dl (30-150); VLDL Cholesterol 41 mg/dL (0-40)
[2024-10-11 11:56] LABS: Direct LDL Cholesterol 62.75 mg/dL (100-129)
[2024-10-11 12:00] LABS: Free T4 (Free Thyroxine) 1.04 ng/dl (0.78-2.19)
[2024-10-11 12:13] LABS: Thyroid Stimulating Hormone 2.26 uIU/mL (0.465-4.68)
[2024-10-11 13:45] LABS: Hemoglobin A1C 5.6 % (4.0-6.0)
== END 2024-10-11 23:59 | disposition home or self-care (01) ==
LOC: LAB 10:29
PROVIDERS: PCP Nurse Practitioner Family; Visit Provider Nurse Practitioner Family
DX: E66.01 Morbid (severe) obesity due to excess calories (principal); E78.2 Mixed hyperlipidemia; I10 Essential (primary) hypertension; I25.10 Atherosclerotic heart disease of native coronary artery without angina pectoris; R42 Dizziness and giddiness
CPT/HCPCS: 36415; 80048; 80061; 80076; 83036; 83735; 84439; 84443; 85025

== ENCOUNTER 2025-02-27 09:36 | Outpatient (CLI) | payer MEDICARE, SELFPAY ==
--- NOTE | 2025-02-27 09:38 | MM_ITS ---
PROCEDURE INFORMATION: Exam: MG Bilateral Screening 3D Mammography Exam date and time: 02/27/2025 10:32 AM Age: 69 years old Clinical indication: Screening examination TECHNIQUE: Imaging protocol: Bilateral Screening tomosynthesis and 2D mammography including computer-aided detection (CAD) when performed. COMPARISON: 1. MG MM DIG SCREENING MAMM BI W/CAD 02/09/2024 8:30 AM 2. MG MM DIG SCREENING MAMM BI W/CAD 02/07/2023 8:10 AM FINDINGS: MAMMOGRAPHY: Breast composition: There are scattered areas of fibroglandular density. Mass: No suspicious masses. Architectural distortion: None. Calcifications: No suspicious calcifications. Asymmetric density: None. Skin thickening: None. Axillary adenopathy: None. IMPRESSION: No mammographic evidence of malignancy. Annual screening is recommended unless otherwise clinically indicated. ASSESSMENT: BI-RADS Category 1: Negative.
--- OUTSIDE RECORDS SUMMARY | 2025-02-27 09:38 | XMS_ITS | Clinical Summary ---
Author Organization Healthcare Address [address] [place] [address] Care Team Providers Care Weigh Machine Operator Name Role Phone Pcp, No Primary Care Provider Unavailabl e Allergies Active Allergy Reactions Criticality Noted Date Comments Promethazine Other - please docum ent in the comment field Low 03/09/2023 Has increased nausea/vomiting, states pt. Medications cholecalciferol (Vitamin D3) 25 MCG (1000 UT) tablet Take 5 tablets (5,000 Units) by mouth 1 (one) time each day in the evening. Active magnesium oxide (Mag-Ox) 400 mg tablet 250 mg 1 (one) time each day in the evening. Active atorvastatin (Lipitor) 40 MG tablet Take 1 tablet (40 mg) by mouth 1 (one) time each day in the evening. Active senna (Senokot) 8.6 MG tablet Take 1 tablet (8.6 mg) by mouth every night. Active meloxicam (Mobic) 15 MG tablet Take 1 tablet (15 mg) by mouth 1 (one) time each day in the evening. Active cetirizine (ZyrTEC) 10 MG tablet Take 1 tablet (10 mg) by mouth 1 (one) time each day in the evening. Active traZODone (Desyrel) 50 MG tablet Take 1 tablet (50 mg) by mouth every night. Active Ubiquinol (Qunol CoQ10/Ubiquinol/ Jacek) 100 MG capsule Take 100 mg by mouth 1 (one) time each day in the evening. Active levothyroxine (Tirosint) 50 MCG capsule Take 1 capsule (50 mcg) by mouth every night. Active omega-3 (Fish Oil) 1000 MG capsule Take 3 capsules (3,000 mg) by mouth 1 (one) time each day in the morning. Active furosemide (Lasix) 20 MG tablet Take 1 tablet (20 mg) by mouth if needed. Active aspirin 81 MG EC tablet Take 1 tablet (81 mg) by mouth 1 (one) time each day in the morning. Active ticagrelor (Brilinta) 90 MG tablet Take 1 tablet (90 mg) by mouth 2 (two) times a day. Active bisoprolol-hydro CHLOROthiazide (Ziac) 5-6.25 MG tablet Take 1 tablet by mouth 1 (one) time each day in the morning. Active isosorbide mononitrate ER (Imdur) 30 MG 24 hr tablet Take 1 tablet (30 mg) by mouth 1 (one) time each day in the morning. Do not crush or chew. Active clopidogrel (Plavix) 75 MG tablet Take 1 tablet (75 mg) by mouth 1 (one) time each day in the morning. Active rivaroxaban (Xarelto) 15 MG tablet Take 1 tablet (15 mg) by mouth 1 (one) time each day in the evening. Take with food. Active Active Problems Problem Noted Date Diagnosed Date Coronary artery disease invo lving [place] coronary artery of [place] heart 11/24/2023 History of percutaneous coronary intervention Primary hypertension 11/24/2023 High cholesterol 11/24/2023 Atrial fibrillation 11/24/2023 Hepatitis 11/24/2023 Macular hole, right eye 02/07/2023 Family History Medical History Relation Name Comments Arthritis Other 1 Hypertension Other 2 Other cancer Other 3 Heart Problem Other 4 Anesthesia problems Neg Hx Malig Hyperthermia Neg Hx Relation Name Status Comments Other 1 Other 2 Other 3 Other 4 Social History Tobacco Use Types Packs/Day Years Used Date Smoking Tobacco: Never Passive Smoke Exposure: Past Smokeless Tobacco: Never Alcohol Use Standard Drinks/Week Comments Never 0 (1 standard drink = 0.6 oz pur e alcohol) Comments Unknown Sex and Gender Information Value Date Recorded Sex Assigned at Not on file Legal Sex Female 8:19 PM EDT Gender Identity Not on file Sexual Orientation Not on file Last Filed Vital Signs Vital Sign Reading Time Taken Comments Blood Pressure 118/97 11/25/2023 1:55 PM EDT Pulse 61 11/25/2023 1:55 PM EDT Temperature 36.2 C (97.2 F) 11/25/2023 1:55 PM EDT Respiratory Rate 14 11/25/2023 1:55 PM EDT Oxygen Saturation 94% 11/25/2023 1:55 PM EDT Inhaled Oxygen Concentration - - Weight 104 kg (229 lb 4.5 oz) 11/25/2023 11:01 A M EDT Height 157.5 cm (5' 2 ) 11/25/2023 11:01 AM EDT Body Mass Index 41.94 11/25/2023 11:01 AM EDT Plan of Treatment Health Maintenance Due Date Last Done Comments [facility]-Bone Density Scan 1955 [facility]-Depression Screening 1955 [facility]-Hepatitis C Screening 1955 [facility]-Medicare Annual Wellness (AWV) 1955 [facility]-Infant/Child/Adol SDOH Screenings 1955 [facility]- SDOH Screenings 1971 [facility]-Adult SDOH Screenings 1971 [facility]-Hepatitis A Vaccines (1 of 2 - Risk 2-dose series) 1972 CT Colonography 1998 Colonoscopy 1998 FIT-DNA 1998 FIT 1998 FOBT 1998 Sigmoidoscopy 1998 [facility]-Colorectal Cancer Screening 1998 [facility]-Breast Cancer Screening 2003 [facility]-Pneumococcal Vaccine: 50 + Years (1 of 1 - PCV) 2003 [facility]-Zoster Vaccines (1 of 2) 2003 [facility]-RSV Vaccine: 60+ Years o r (1 - Risk 60-74 years 1-dose series) 2013 [facility]-DTaP,Tdap,and Td Vaccine s (2 - Td or Tdap) 02/12/2023 02/12/2013, 05/07/2000 [id number] Vaccine (3 - season) 2024 07/30/2021, 11/19/2020 [facility]-Influenza Vaccine (#1) 2025 [facility]-Obesity Intervention Completed 11/26/2023 HPV Vaccines Aged Out No longer eligi ble based on patient's age to complete this topic [facility]-HIB Vaccines Aged Out No longer e ligible based on patient's age to complete this topic [facility]-IPV Vaccines Aged Out No longer e ligible based on patient's age to complete this topic [facility]-Rotavirus Vaccines Aged Out No lo nger eligible based on patient's age to complete this topic Medical Devices Implanted Type Area Net Application Architect Device Identifier Shelf Expiration Date Model / Serial / Lot [id number] Gas Bubble Implanted:Qty: 1 on 11/25/2023 by Silvestre Sotomayor MD at [facility] Right: Eye [employer] 02/12/2024 [id number] / / Description:14% Insurance [facility] MEDICARE Care Teams Weigh Machine Operator Relationship Specialty Start Date End Date Malachi, [place] [address] PCP - General Family Medicine 02/09/23
== END 2025-02-27 23:59 | disposition home or self-care (01) ==
LOC: RAD 09:36
PROVIDERS: PCP Nurse Practitioner Family; Visit Provider Nurse Practitioner Family
DX: Z12.31 Encounter for screening mammogram for malignant neoplasm of breast (principal); R92.323 Mammographic fibroglandular density, bilateral breasts
CPT/HCPCS: 77063; 77067

== ENCOUNTER 2025-03-18 09:23 | Outpatient (CLI) | payer MEDICARE, SELFPAY ==
--- OUTSIDE RECORDS SUMMARY | 2025-03-18 09:26 | XMS_ITS | Clinical Summary ---
Author Organization Healthcare Address [address] [place] [address] Care Team Providers Care Binder Stripper Machine Name Role Phone Pcp, No Primary Care [...] Diagnosed Date Coronary artery disease invo [place]ving [place] coronary artery of [place] heart 11/24/2023 History of percutaneous coronary intervention [...] Screening 1955 [facility]-Medicare Annual Wellness (AWV) 1955 [facility]-/Child/Adol SDOH Screenings 1955 [facility]- SDOH Screenings 1971 [...] - Td or Tdap) 02/12/2023 02/12/2013, 05/07/2000 [id number] Vaccine (3 - season) 2024 07/30/2021, 11/19/2020 [...] this topic Medical Devices Implanted Type Area Corporate Officer Device Identifier Shelf Expiration Date Model / Serial / Lot [id number] Gas Bubble Implanted:Qty: 1 on 11/25/2023 by Silvestre Sotomayor MD at [facility] Right: Eye [employer] 02/12/2024 [id number] / / Description:14% Insurance [facility] MEDICARE Care Teams Binder Stripper Machine Relationship Specialty Start Date End Date Malachi, [place] [address] PCP - General Family Medicine 02/09/23
[2025-03-18 09:54] LABS: Hematocrit 41.2 % (37.0-47.0); Hemoglobin 13.7 g/dL (12.2-16.2); Immature Granulocytes % 0.3 %; Mean Corpuscular HGB Conc 33.3 g/dL (31.8-35.4); Mean Corpuscular Hemoglobin 31.3 pg (27.0-31.2); Mean Corpuscular Volume 94.1 fl (81-99); Nucleated Red Blood Cells % 0 %; Platelet Count 221 K/mm3 (142-424); Red Blood Count 4.38 M/mm3 (4.20-5.40); Red Cell Distribution Width-SD 45.1 fL; White Blood Count 6.9 K/mm3 (4.8-10.8)
[2025-03-18 11:05] LABS: Alanine Aminotransferase 17 U/L (12-78); Albumin Level 4.3 g/dl (3.5-5.0); Alkaline Phosphatase 119 U/L (38-126); Anion Gap 11.2 mEq/L (5-15); Aspartate Amino Transferase 28 U/L (14-36); Bilirubin,Direct 0.2 mg/dl (0.0-0.4); Bilirubin,Indirect 0.3 mg/dL (0.0-0.9); Bilirubin,Total 0.5 mg/dl (0.2-1.3); Bilirubin,Unconjugated 0.3 mg/dL (0.0-1.1); Blood Urea Nitrogen 13 mg/dl (7-17); Calcium 10.6 mg/dl (8.4-10.2); Carbon Dioxide 31 mmol/L (22.0-30.0); Chloride 101 mmol/L (98-107); Cholesterol 150 mg/dl (140-200); Creatinine,Serum 0.80 mg/dl (0.52-1.04); Estimated Glomerular Filt Rate 71 ml/min (>60); GFR (African American) 86 ML/MIN (>60); Glucose 107 mg/dl (74-100); HDL Cholesterol 35 mg/dl (40-60); Magnesium 2.0 mg/dl (1.6-2.3); Potassium 4.2 mmoL/L (3.5-5.1); Sodium 139 mmol/L (136-145); Total Protein,Serum 6.9 g/dl (6.3-8.2); Triglycerides 215 mg/dl (30-150)
[2025-03-18 11:34] LABS: Free T4 (Free Thyroxine) 1.25 ng/dl (0.78-2.19)
[2025-03-18 11:35] LABS: Thyroid Stimulating Hormone 1.87 uIU/mL (0.465-4.68)
== END 2025-03-18 23:59 | disposition home or self-care (01) ==
LOC: LAB 09:24
PROVIDERS: PCP Nurse Practitioner Family; Visit Provider Nurse Practitioner Family
DX: I25.10 Atherosclerotic heart disease of native coronary artery without angina pectoris (principal); I48.0 Paroxysmal atrial fibrillation; I10 Essential (primary) hypertension
CPT/HCPCS: 36415; 80048; 80061; 80076; 83735; 84439; 84443; 85025

== ENCOUNTER 2025-06-10 15:40 | Outpatient (CLI) | payer MEDICARE, SELFPAY ==
--- OUTSIDE RECORDS SUMMARY | 2025-06-10 16:10 | XMS_ITS | Data Portability ---
Author Organization [facility] Address [address] [place] [address] Assessment Encounter Date Assessment Date Assessment LastModified by Organization Details LastModified Time 11/16/2024 11/16/2024 Patient presente d to office today for their Medicare Annual Wellness Visit. Education was provided on healthy nutrition, including a diet rich in fruits and vegetables, minimizing simple carbohydrates, salt, and saturated fats. Encouraged regular cardiovascular exercise such as walking at least 30 minutes daily, 5 times per week. Emphasized preventive health measures and educated pt on fall prevention and community-based lifestyle interventions to help reduce health risks and promote healthy living. Medicare Preventive Services Check List reviewed and printed for patient. [email or web address] Not available 11/16/2024 14:06:24 Plan of Treatment Reminders Order Date Submit Date Provider Last Modified By Organization Details Last Modified Time Details Appointments SAME Day 20 2024 01:20P M Justus Desai APRN Not available Not available Not available Lab rapid flu (A+B) 2024 025 [facility], [address] [place] [address], [phone], 11/08/2024 14:01:10 rapid SARS CoV + SARS CoV 2 Ag, QL IA, respirato ry specimen 2024 025 [facility], [address] [place] [address], [phone], 11/08/2024 14:01:09 Referral None recorded. Procedures None recorded. Surgeries None recorded. Imaging electroca rdiogram 2024 025 bstears [facility], [address] [place] [address], [phone], 06/10/2025 14:10:58 Medication Orders doxycycli ne hyclate 100 mg tablet 2024 025 [facility], [address], [address], 11/16/2024 14:09:27 benzonata te 100 mg capsule 2024 025 [facility], [address], [address], 11/16/2024 14:09:18 dexametha sone sodium phosphate 4 mg/mL injection solution 2024 025 [email or web address] Not available 11/08/2024 13:22:03 dexametha sone sodium phosphate 4 mg/mL injection solution 2024 025 [email or web address] Not available 11/08/2024 13:22:03 Patient TargetsNo targets recorded. Patient Instructions Encounter Date Encounter Id Patient Instructions Last Modified By Organization Details Last Modified Time 11/16/2024 [id number] advance directives: care instructions efryman Not available 11/16/2024 14:40:38 learning about depression efryman Not available 11/16/2024 14:40:38 preventing falls : care instructions efryman Not available 11/16/2024 14:40:38 body mass index: care instructions efryman Not available 11/16/2024 14:40:38 learning about healthy weight efryman Not available 11/16/2024 14:40:38 medicare preventive services guide efryman Not available 11/16/2024 14:40:38 Reason for Referral None Reported. Results Created Date Observation Date Name Description Value Unit Range Abnormal Flag Note LastModifiedBy Organization Detail LastModifiedTime 11/09/1911/08/2024 rapid SARS CoV + SARS CoV 2 Ag, QL IA, respi rator y speci men SARS CoV antigen Negati ve Not Available [address] [place], [address], 11/08/2024 13:29:35 11/09/19 25 11/08/2024 rapid flu (A+B) Flu positi ve Not Available [address], [address], 11/08/2024 13:29:26 11/09/19 25 11/08/2024 rapid flu (A+B) Type A Not Available [address], [address], 11/08/2024 13:29:26 03/04/20 25 02/27/2025 MAMMO , scree michelle, digit al, bilat eral No observ ation record ed. [facility] [address], [place], [address], 03/04/2025 12:32:30 06/10/20 25 06/10/2025 elect brianna mottagr am No observ ation record ed. [email or web address], [address], 06/10/2025 14:11:33 Result Notes None recorded. Problems Name Problem SNOMED Code Status Onset Date Resolution Date Notes Provider Name and Address Organization Details Recorded Time Hypothyroidis m 86370835 Active Savana Parra null, [place] - [facility] 2 13:10:42 Hypertensive disorder 39032223 Active Savana Parra null, [place] - [facility] 2 13:10:52 Heart disease 63932453 Active Savana Parra null, [place] - [facility] 3 10:42:13 Atrial fibrillation 80481353 Active 2022 Justus Desai, [employer] [address], [place], [address] , [place] - [facility] 3 11:07:05 Acute right otitis media 866618560 Active 2022 Orlin Alva [employer] [address], [place], [address] , [place] - [facility] 16:30:16 Problem Notes None recorded. Procedures Surgical History Date Name Laterality Status Provider Name and Address Organization Details Recorded Time 02/28/20 25 Date of Last Mammogram completed Joanne Stears [place] - [facility] 03/04/2025 12:30:58 11/17/19 25 Advance Care Planning completed Joanne Stears [place] - [facility] 11/16/2024 14:06:25 11/17/19 25 Functional Status Assessed completed Joanne Stears [place] - [facility] 025 14:06:25 05/18/20 24 Date of Last Colonoscopy completed Joanne Stears [place] - [facility] 11/16/2024 14:14:41 03/15/20 24 Most Recent Bone Density completed Joanne Stears [place] - [facility] 03/19/2024 15:26:37 05/24/20 23 Advance Care Planning completed Savana Aida [place] - [facility] 05/24/2023 08:19:20 05/24/20 23 Functional Status Assessed completed Savana Aida [place] - [facility] 05/24/2023 08:19:21 03/15/20 15 Colposcopy completed Savana Aida [place] - [facility] 06/14/2022 13:07:48 07/02/20 14 Knee Surgery completed Joanne Stears [place] - [facility] 04/2023 16:16:23 11/21/19 14 colonoscopy completed Joanne Stears [place] - [facility] 110 09/2022 08:30:22 10/02/19 10 Back Surgery completed Joanne Stears [place] - [facility] 04/2023 16:16:23 Cataract Surgery completed Ashlee Quinonesler [place] - [facility] 06/14/2022 13:13:06 Carpal tunnel surgery completed Savana Aida [place] [facility] 06/14/2022 13:13:17 Back Surgery [place] Savana Aida [place] [facility] 06/14/2022 13:13:23 Knee Surgery [place] Savana Aida [place] [facility] 06/14/2022 13:13:30 Cholecystectomy, laparoscopic completed Savana Aida [place] - [facility] 06/14/2022 13:13:43 Tubal Ligation completed Savana Parra [place] - [facility] 06/14/2022 13:13:51 Cardiac Cath [place] Joanne [place] [facility] 05/05/2023 16:19:03 placement of stent in pulmonary artery completed Joanne Hernandez [place] [facility] 2022 16:19:20 Eye Surgery completed Joanne Hernandez [place] [facility] 02/10/2024 08:28:10 Imaging Results None recorded. Procedure Notes None recorded. Medical Equipment None Reported. Allergies Allergen ID Allergen Name Allergen Category Reaction Reaction Severity Criticality Documentation Date Start Date Code Code System Note Provider Name and Address Organization Details Recorded Time 748966 Phenergan medicatio n vomiting moderate high 06/14/2022 20086 8 RxNorm Savana Quinonesdavis [place], [place] - [facility] 13:08:08 Medications Name Sig Start Date Stop Date Status Note LastModified by Organization Details LastModified Time eq sinus & congestion 30mg tab TAKE 1 TO 2 TABLETS BY MOUTH THREE TIMES DAILY FOR CONGESTIO N 06/14 completed Not Available Not Available Not Available mucus er 600mg tab TAKE 1 TABLET BY MOUTH EVERY 12 HOURS FOR 14 DAYS 05/24 completed Not Available Not Available Not Available amoxicillin 500 mg capsule TAKE 1 CAPSULE BY MOUTH TWICE DAILY FOR 10 DAYS, START TOMORROW 05/05 completed Not Available Not Available Not Available atorvastati n 40 mg tablet TAKE 1 TABLET BY MOUTH AT BEDTIME NIGHTLY active Not Available Not Available No t Available trazodone 50 mg tablet TAKE 1 TABLET BY MOUTH ONCE DAILY AT BEDTIME 2024 active Not Available Not Available Not Avai lable cetirizine 10 mg tablet Take 1 tablet by mouth once daily 2024 active Not Available Not Available Not Avai lable azithromyci n 250 mg tablet TAKE 2 TABLETS (500 MG) BY ORAL ROUTE ONCE DAILY FOR 1 DAY THEN 1 TABLET (250 MG) BY ORAL ROUTE ONCE DAILY FOR 4 DAYS 10/15 completed Not Available Not Available Not Available ofloxacin 0.3 % eye drops INSTILL 1 DROP INTO RIGHT EYE 4 TIMES DAILY FOR 7 DAYS 02/09 completed Not Available Not Available Not Available meloxicam 15 mg tablet TAKE 1 TABLET BY MOUTH ONCE DAILY active Not Available Not Available No t Available isosorbide mononitrate ER 30 mg tablet,exte nded release 24 hr TAKE 1 TABLET BY MOUTH ONCE DAILY 05/05 completed Not Available Not Available Not Available bisoprolol 5 mg-hydrochl orothiazide 6.25 mg tablet TAKE 1 TABLET BY MOUTH ONCE DAILY active Not Available Not Available No t Available clopidogrel 75 mg tablet TAKE 1 TABLET BY MOUTH ONCE DAILY active Not Available Not Available No t Available bisoprolol 2.5 mg-hydrochl orothiazide 6.25 mg tablet TAKE 1 TABLET BY MOUTH ONCE DAILY 03/03 completed Not Available Not Available Not Available amoxicillin 500 mg tablet Take 1 tablet twice a day by oral route for 10 days. 05/05 completed Not Available Not Available Not Available ceftriaxone 1 gram solution for injection Take 1 g by injection route. 05/24 completed Not Available Not Available Not Available benzonatate 100 mg capsule TAKE 1 CAPSULE BY MOUTH TWICE DAILY FOR 5 DAYS 11/16 completed Not Available Not Available Not Available levothyroxi ne 50 mcg tablet TAKE 1 TABLET BY MOUTH ONCE DAILY active Not Available Not Available No t Available cephalexin 500 mg capsule TAKE 1 CAPSULE BY MOUTH TWICE DAILY FOR 7 DAYS 07/06 completed Not Available Not Available Not Available simvastatin 20 mg tablet TAKE 1 TABLET BY MOUTH AT BEDTIME 03/03 completed Not Available Not Available Not Available cyanocobala min (vit B-12) 1,000 mcg/mL injection solution INJECT 1 ML SUBCUTANE OUSLY ONCE EVERY MONTH active Not Available Not Available No t Available triamcinolo ne acetonide 0.1 % topical ointment APPLY OINTMENT TOPICALLY THREE TIMES DAILY NEEDED FOR ITCHING FOR 7 DAYS 06/14 completed Not Available Not Available Not Available furosemide 20 mg tablet TAKE 1 TABLET BY MOUTH ONCE DAILY NEEDED 11/16 completed Not Available Not Available Not Available dexamethaso ne sodium phosphate 4 mg/mL injection solution Inject 1 mL as needed by intramusc ular route. 11/08 completed Not Available Not Available Not Available methylpredn isolone 4 mg tablets in a dose pack TAKE DIRECTED 06/14 completed Not Available Not Available Not Available fluticasone propionate 50 mcg/actuati on nasal spray,suspe nsion USE 2 SPRAY(S) IN EACH NOSTRIL ONCE DAILY 06/14 completed Not Available Not Available Not Available metformin ER 500 mg tablet,exte nded release 24 hr TAKE 1 TABLET BY MOUTH ONCE DAILY 10/15 completed Not Available Not Available Not Available doxycycline hyclate 100 mg tablet TAKE 1 TABLET BY MOUTH TWICE DAILY FOR 7 DAYS 11/16 completed Not Available Not Available Not Available neomycin-po lymyxin-hyd rocort 3.5 mg-10,000 unit/mL-1 % ear drops,susp INSTILL 4 DROPS INTO AFFECTED EAR(S) THREE TIMES DAILY active Not Available Not Available No t Available magnesium active Not Available Not Elena ilable Not Available Fish Oil active Not Available Not Avai lable Not Available ranolazine ER 500 mg tablet,exte nded release,12 hr TAKE 1 TABLET BY MOUTH TWICE DAILY 03/03 completed Not Available Not Available Not Available diclofenac 1 % topical gel APPLY 2 GRAMS TOPICALLY 4 TIMES DAILY FOR 30 DAYS 03/03 completed Not Available Not Available Not Available sodium,pota ssium,mag sulfates 17.5 gram-3.13 gram-1.6 gram oral soln DRINK FULL AMOUNT EARLY EVENING BEFORE AND NEXT MORNING AT LEAST 2 HOURS BEFORE PROCEDURE . FOLLOW WITH DRINKING 32 OZ OF WATER 07/06 completed Not Available Not Available Not Available Brilinta 90 mg tablet TAKE 1 TABLET BY MOUTH TWICE DAILY 05/05 completed Not Available Not Available Not Available Xarelto 15 mg tablet TAKE 1 TABLET BY MOUTH ONCE DAILY WITH EVENING MEAL active Not Available Not Available No t Available vit D3-folic acid-B2-B6- B12 11/16 completed Not Available Not Available Not Available guaifenesin ER 600 mg tablet, extended release 12 hr Take 1 tablet every 12 hours by oral route for 14 days. 05/24 completed Not Available Not Available Not Available Wegovy 2.4 mg/0.75 mL subcutaneou s pen injector INJECT 1 AUTO-INJE CTOR SUBCUTANE OUSLY ONCE A WEEK active Not Available Not Available No t Available Wegovy 1.7 mg/0.75 mL subcutaneou s pen injector INJECT CONTENTS OF 1 AUTO-INJE CTOR SUBCUTANE OUSLY ONCE A WEEK active Not Available Not Available No t Available Wegovy 1 mg/0.5 mL subcutaneou s pen injector INJECT 1 SYRINGE SUBCUTANE OUSLY ONCE A WEEK active Not Available Not Available No t Available Wegovy 0.25 mg/0.5 mL subcutaneou s pen injector INJECT 1 SYRINGE SUBCUTANE OUSLY ONCE A WEEK ON WEEKS 1-4 OF THERAPY active Not Available Not Available No t Available Wegovy 0.5 mg/0.5 mL subcutaneou s pen injector INJECT 1 SYRINGE SUBCUTANE OUSLY ONCE A WEEK. ADMINISTE R WEEKS 5 THROUGH 8 OF THERAPY active Not Available Not Available No t Available Qunol Jacek CoQ10 100 mg capsule Take by oral route. active Not Available Not Available No t Available Vitals Date Recorded Body height Body mass index (BMI) Body weight Heart rate Oxygen saturation Oxygen saturation in Arterial blood by Pulse oximetry Respiratory rate Pain severity - 0-10 verbal numeric rating [Score] - Reported Systolic And Diastolic Provider Name and Address Organization Details Last Updated DateTime 5 160.02 cm 42.3 kg/m2 797601. 58 g 109 /min 96 % 96 % 18 /min 0 124/78 mm[Hg] [facility] 13:17:56 Date Recorded Body height Body mass index (BMI) Body weight Heart rate Oxygen saturation Oxygen saturation in Arterial blood by Pulse oximetry Respiratory rate Pain severity - 0-10 verbal numeric rating [Score] - Reported Systolic And Diastolic Provider Name and Address Organization Details Last Updated DateTime 5 160.02 cm 40.7 kg/m2 046652. 25 g 95 /min 96 % 96 % 18 /min 0 126/72 mm[Hg] Savana Parra [facility] 5 13:44:16 Date Recorded Body height Respiratory rate Body mass index (BMI) Body weight Body temperature Heart rate Oxygen saturation Oxygen saturation in Arterial blood by Pulse oximetry Systolic And Diastolic Provider Name and Address Organization Details Last Updated DateTime 5 160.02 cm 18 /min 40.4 kg/m2 789005. 06 g 98.3 [degF] 90 /min 95 % 95 % 132/76 mm[Hg] Joanne Hernandez [place] - [facility] 5 13:28:49 Date Recorded Body height Respiratory rate Body mass index (BMI) Body weight Body temperature Heart rate Oxygen saturation Oxygen saturation in Arterial blood by Pulse oximetry Systolic And Diastolic Provider Name and Address Organization Details Last Updated DateTime 5 160.02 cm 18 /min 40.4 kg/m2 654909. 06 g 97.9 [degF] 82 /min 95 % 95 % 128/80 mm[Hg] Joanne Hernandez [facility] 5 14:10:59 Date Recorded Body height Body mass index (BMI) Body weight Body temperature Respiratory rate Heart rate Oxygen saturation Oxygen saturation in Arterial blood by Pulse oximetry Systolic And Diastolic Provider Name and Address Organization Details Last Updated DateTime 5 160.02 cm 34.4 kg/m2 00809.9 2 g 98 [degF] 18 /min 116 /min 96 % 96 % 112/68 mm[Hg] Joanne Amayas [facility] 5 13:25:06 Social History Question Answer Notes LastModified by [employer] Details LastModified Time Tobacco Smoking Status Never Smoker Savana conrad, [facility] 06/14/2022 13:12:09 Do You Have An Advance Directive? No Information n ot available 09/23/2022 Are You Blind Or Do You Have Difficulty Seeing? No Information n ot available 09/23/2022 What Is Your Level Of Caffeine Consumption? Occasional Information not available 06/14/2022 In The 14 Days Before Symptom Onset, Have You Had Close Contact With A Laboratory-confirm ed COVID-19 While That Case Was Ill? No Information n ot available 03/03/2023 In The 14 Days Before Symptom Onset, Have You Had Close Contact With A Person Who Is Under Investigation For COVID-19 While That Person Was Ill? No Information not available 03/03/2023 Have You Been To An Area Known To Be High Risk For COVID-19? No Information not available 03/03/2023 Are You Deaf Or Do You Have Serious Difficulty Hearing? No Information not available 09/23/2022 What Type Of Diet Are You Following? REGULAR Information n ot available 09/23/2022 Have You Processed Blood Or Body Fluids From An Ebola Virus Disease Patient Without Appropriate PPE? No Information not available 03/03/2023 Do You Reside In Or Have You Traveled To An Area Where Ebola Virus Transmission Is Active? No Information not available 03/03/2023 What Is The Highest Grade Or Level Of School You Have Completed Or The Highest Degree You Have Received? [id number] Information not available 09/23/2022 Have There Been Any Changes To Your Family Or Social Situation? No Information no t available 09/23/2022 What Is The Fluoride Status Of Your Home? Unknown Information not available 09/23/2022 Have You Recently Or Are You Planning To Travel To An Area With Zika Virus? No Information not available 03/03/2023 Do You Have A Medical Power Of Director Of Diagnostic Imaging? No Information not available 09/23/2022 What Was The Date Of Your Most Recent Tobacco Screening? 10/15/2024 Information not available 10/15/2024 How Many Children Do You Have? 2 Information not available 09/23/2022 What Is Your Relationship Status? Information not available 09/23/2022 Are You Sexually Active? No Information not available 09/23/2022 Do You Have Smoke And Carbon Monoxide Detectors In Your Home? Yes Information not available 09/23/2022 Are You Passively Exposed To Smoke? No Information no t available 09/23/2022 Do You Use Sunscreen Routinely? No Information not available 09/23/2022 Has Tobacco Cessation Counseling Been Provided? No Information not available 05/05/2023 Do You Have Difficulty Walking Or Climbing Stairs? No Information not available 09/23/2022 Sex: Female Functional Status Question Answer Note LastModified by Organizat ion Details LastModified Time Do you use any illicit or recreational drugs? No Information not available 09/23/2022 Do you or have you ever used any other forms of tobacco or nicotine? No Information not available 05/05/2023 What is your level of alcohol consumption? None Information not available 09/23/2022 Are you currently employed? Yes Information not available 09/23/2022 Do you have transportation difficulties? No Information not available 09/23/2022 Are you able to walk independently without assistance or assistive devices? [employer] Information not available 09/23/2022 Do you have difficulty doing errands alone? No Information not available 09/23/2022 Are you able to care for yourself independently? Yes Information not available 09/23/2022 What is your occupation? [employer] Information not available 05/05/2023 Do you have difficulty dressing, bathing, grooming, or toileting? No Information not available 09/23/2022 What is your exercise level? Moderate Information not available 09/23/2022 Mental Status Question Answer Note LastModified by Organizat ion Details LastModified Time Do you feel stressed (tense, restless, nervous, or anxious, or unable to sleep at night)? [id number] Information not available 09/23/2022 Do you have difficulty concentrating, remembering or making decisions? No Information no t available 09/23/2022 Family History Relationship Description Onset Age of this Age Resolved Age Notes LastModified by Organization Details LastModified Time Mother Heart disease 60 69 [email or web address] Not available 2021 13:07:35 Mother Malignant neoplasm of lung cbuckler Not available 2021 13:07:35 Unspecified Relation Malignant neoplasm of cervix uteri cbuckler Not available 13:07:35 Medical History Condition Response Arthritis Y Hypercholesterolemia Y Thyroid Problems Y Hyperlipidemia Y Hepatitis Y Hypertension Y Gynecological History Statement/Question Response Abnormal Pap N Date of Last Mammogram 02/27/2025 Date of LMP 05/04/1995 Post Menopausal Bleeding N STIs/STDs N Colposcopy 03/15/2015 HPV Vaccine N Current Control Method None Age at Menarche 9 If Post Menopausal, Age at Menopause 40 Date of Last Colonoscopy 05/18/2024 Most Recent Bone Density 03/15/2024 Sexually Active? N Menses Monthly N LMP Approximate Hormone Replacement Therapy N Obstetrics History GPAL:G 2 P 2 0 0 0 Type Value Multiple Births 0 Full Term 2 Induced 0 Spontaneous 0 Premature 0 Living 0 Ectopics 0 Total 2 Immunizations Vaccine Type Date Status Note Provider Name and Address Organization Details Recorded Time Pneumococcal conjugate PCV20, polysaccharide [id number] conjugate, adjuvant, PF 02/10/20 24 cancelled patient objection Joanne Stears null, [facility] 02/10/2024 09:18:52 Tdap 02/10/20 24 cancelled patient objection Joanne Stears null, [facility] 02/10/2024 09:18:52 zoster recombinant 11/17/19 25 cancelled patient objection Justus Desai, [employer] [address], [place], [address], [facility] - [facility] 11/16/2024 14:40:39 Tdap 11/17/19 25 cancelled patient objection Justus Desai, [employer]ACH[employer] [address], [place], [address], [facility] - [facility] 11/16/2024 14:40:39 Pneumococcal conjugate PCV20, polysaccharide [id number] conjugate, adjuvant, PF 11/17/19 25 cancelled patient objection Justus Desai, [employer]ACH[employer] [address], [place], [address], [facility] - [facility] 11/16/2024 14:40:39 COVID-19 vaccine, vector-nr, rS-Ad26, PF, 0.5 mL 11/20/19 21 completed Joanne Stears null, [facility] 11/29/2022 09:40:46 COVID-19 vaccine, vector-nr, rS-Ad26, PF, 0.5 mL 07/30/20 21 completed Joanne Stears null, [facility] 11/29/2022 09:40:46 Tdap 02/13/20 13 completed Joanne Stears null, [facility] 11/29/2022 09:40:46 Td (adult), 2 Lf tetanus toxoid, preservative free, adsorbed 05/07/20 00 completed Joanne Stears null, [facility] 11/29/2022 09:40:46 Hep B, adult 11/19/19 completed Joanne Stears null, [facility] 11/29/2022 09:40:46 Hep B, adult 12/17/19 completed Joanne Stears null, [facility] 11/29/2022 09:40:46 Hep B, adult 06/15/20 completed MATTHEW Alvarenga - [facility] 11/29/2022 09:40:46 Past Encounters Encounter ID Performer Location Encounter Start Date Encounter Closed Date Diagnosis/Indication Diagnosis SNOMED-CT Code Diagnosis ICD10 Code Diagnosis IMO Codes Diagnosis Note [id number] Justus Desai [address] [address] 06/14/2022 12:45:21 06/14/2022 13:44:21 Acute bronchitis 62311355 J20.9 [id number] Justus Desai [address] [address] 09/23/2022 16:08:07 09/23/2022 16:51:25 Allergic rhinitis 67863582 J30.9 [id number] Justus Desai [address] [address] 11/29/2022 09:33:40 11/29/2022 10:48:14 Irregular heart beat 575730169 R00.8 ekg sinus rhythm with marked sinus arrhythmia - pt report no cardiac history. has had numerous family member with cardiac history-pt states she had labs in dr siu office last tuesday but has not been called about resultsany issues go to ed Streptococ kelly sore throat 72852793 J02.0 Acute righ t otitis media 370028601 H66.91 treat with amoxicilli n [id number] Justus Desai [address] [address] 12/23/2022 11:21:05 12/23/2022 12:05:50 Body mass index 30+ - obesity 182637270 Z68.41 Obesity 959415883 E66.9 Acute bronchitis 0010955 2 J20.9 call for no improvemen t or worsening of symptoms [id number] Justus Desai [address] [address] 03/03/2023 10:09:51 03/03/2023 11:06:39 Body mass index 40+ - severely obese 007622564 Z68.41 Morbid obesity 497151476 E66.01 Acute righ t otitis media 037022626 H66.91 treat with amoxicilli n [id number] Orlin Alva [address] [address] 05/05/2023 16:04:48 05/05/2023 16:54:10 Acute right otitis media 287589936 H66.91 Otitis MediaDiscu ssed otitis media, potential causes, treatment, and prognosis. Prescribed oral antibiotic and Auralgan Otic drops for pain and inflammati on.-Medica tions were reviewed and any necessary updates and renewals were made, patient instructed to complete as prescribed .-The potential side effects of medication s were discussed. -Further treatment per orders listed below.- Follow-up in 5 days if no improvemen t or sooner if required. Hypothyroidism 82175158 E03.9 unknown if controlled possible medication side effects with reported weight gain or possible uncontroll ed hypothyroi dismCurren t treatment maintained .TSH labs check, will call with results ASAPI discussed thyroid disease in therapy and follow-up. The goal is to maintain TSH level between 0.5 and 2.5 mu/L and FT4 within normal range. [id number] Justus Desai APRN [address] [address] 05/24/2023 08:15:13 05/24/2023 09:12:59 Adult health examination 508916634 Z00.00 Depression screening 171 799688 Z13.31 Examinatio n of blood pressure 011846739 Z01.30 Diet education 65953467 Z71.3 Counseling 129612296 Z71 .82 Exercise counseling . Patient encouraged to exercise 30 minutes 5 days a week. At [facility] ed risk for falls 584144337 Z91.81 STEADI FAST screening score of . Advance care planning 71 7362813 Z71.89 Finding of body mass index 592779661 E66.9 Body mass index 30+ - obesity 803478316 Z68.41 Vitamin B1 2 deficiency (non anemic) 35629440 E53.8 Seasonal a llergic rhinitis 824977448 J30.2 Coronary arteriosclerosis 01308732 I25.10 continue to follow cardiology [id number] Justus Desai [address] [address] 02/10/2024 08:00:24 02/10/2024 09:31:19 Adult health examination 678632986 Z00.00 Body mass index 40+ - severely obese 497482087 Z68.41 42.3 Morbid obesity 187114735 E66.01 Hypertensive disorder 38 640940 I10 labs Hypothyroidism 53638599 E03.9 labs Heart disease 58211585 I 51.9 Screening for malignant neoplasm of colon 935760287 Z12.11 Postmenopausal state 764 53007 Z78.0 Z13.820 Z01.419 Atrial fibrillation 4943 6004 I48.91 notified her that it would be $15.31 at [facility] for a 30 day supply Vaccination needed 97996 71232 52412 Z23 Pneumococc al vaccination declined 831542694 Z28.21 Tetanus di phtheria and acellular pertussis vaccination declined 1959101222 0319660 Z28.20 Hepatitis C screening declined 4471550286 5105 Z53.20 Increased frequency of urination 761972700 R35.0 labs,ua Fatigue 68982108 R53.83 labs Scar 085205037 L90.5 bactroban cream, derm referral Acute urin rich tract infection 541227825 N39.0 [id number] Justus Desai APR[address] [address] 07/06/2024 14:29:06 07/06/2024 15:29:24 Body mass index 40+ - severely obese 761833492 Z68.41 42.3 Morbid obesity 297005417 E66.01 Acute uppe r respiratory infection 27547782 J06.9 no sign of a bacterial infection. likely viral. viruses can take 7-14 days to run their course. nasal saline and bulb syringe to remove nasal drainage to help with congestion . monitor temp. Tylenol or Motrin as needed for pain or fever. encourage fluids, water, Gatorade, power aide, Pedialyte if /tod dler/child warm salt water gargles warm fluids sore throat lozenges sleep elevated humidifier /vaporizer follow up immediatel y for new or worsening symptoms or no noticeable improvemen t over the next 48-72 hours [id number] Priscilladonna Desai [address] [address] 10/15/2024 13:05:24 10/15/2024 13:33:54 Acute upper respiratory infection 68278264 J06.9 no sign of a bacterial infection. likely viral. viruses can take 7-14 days to run their course.mon itor temp. Tylenol or Motrin as needed for pain or fever.enco urage fluids, water, Gatorade, power aide, Pedialyte if /tod dler/child warm salt water gargleswar m fluidssore throat lozengessl eep elevatedhu midifier/v aporizerfo llow up immediatel y for new or worsening symptoms or no noticeable improvemen t over the next 48-72 hours [id number] [facility] [place] [address] 11/05/2024 13:35:04 11/05/2024 14:00:28 Acute bronchitis 44774273 J20.9 call for no improvemen t or worsening of symptomsdi scussed med in detail Cough 13395215 R05.9 if worsening or no improvemen t return [id number] [facility] gu[address]ita[address] [address] 11/08/2024 13:14:51 11/08/2024 14:28:54 Influenza caused by Influenza A virus 665065422 J09.X2 [id number] [facility] [address] [address] 11/16/2024 13:37:03 11/16/2024 14:55:08 Adult health examination 050626907 Z00.00 Depression screening 171 603128 Z13.31 A depression screening was completed via a standardiz ed screening tool. 5 minutes were spent discussing depression screening results and risk factors. Examinatio n of blood pressure 427011567 Z01.30 Diet education 29791246 Z71.3 Counseling 174329226 Z71 .82 Exercise counseling . Patient encouraged to exercise 30 minutes 5 days a week. At [facility] ed risk for falls 783609767 Z91.81 STEADI FAST screening score of __1___. Advance care planning 71 3178333 Z71.89 Morbid obesity 482071916 E66.[address] vaccination declined 0433938825 102 Z28.21 1640947001 Vaccine de clined by patient 3682195207 02 Z28.21 9868130032 Pneumococc al vaccination declined 890232880 Z28.21 15368490 Severe obesity 746663748 1 9104 E66.813 E66.01 Z68.41 6722100849 40.4 [id number] Justus Desai APRN [address] [address] 06/10/2025 13:12:20 06/10/2025 14:01:07 Chest pain 95241088 R07.9 [id number] spoke to nancy and reviewed ekg- sent to dr cruz office for eval Pulmonary congestion 675 28671 R09.89 958468 wait on med till seen by cardiology Health Concerns Section Related Observation LastModified by Organization Detai ls LastModified Time None Recorded Concern Status LastModified by Organization Details LastModified Time None Recorded Advance Directives Directive N: Payers Insurance Date Sequence Insurance Name Policy Number Policy Padilla Covered Member ID Padilla Member ID Guarantor Name 06/10/2025 1 [employer] (MEDICARE REPLACEMENT/A DVANTAGE - PPO) Hailee Arnett [id number] Hailee Arnett Notes Date Note Type Note Provider Name and Address Organization Details Recorded Time 10/15/2024 text/html ROS as noted in the HPI 69 yr old female presents for right ear pain, sinus tenderness and clear sinus congestion. Denies fever. Justus Desai APRN [address], [place], [address], [place] - [facility] 10/15/2024 13:33:59 11/05/2024 text/html ROS as noted in the HPI 69 yr old female with a cough after being out in cold/windy/damp weather watching outdoor sports. She denies fever. wants steroid shot Justus Desai APRN [address], [place], [address], [place] - [facility] 11/05/2024 13:54:58 11/08/2024 text/html ROS as noted in the HPI 69 year old female who presents to the office today with concerns of continued cough, yellow/ green congestion, and fever Justus Desai APRN [address], [place], [address], [place] [facility] 11/08/2024 14:02:06 11/16/2024 text/html Medicare Annual Wellness VisitReported by PatientSocial/Behavio ral HistoryFor diet and nutrition, patient reportshigh caloric intakeandhigh carbohydrate meals. For physical activity, patient reportsdoes not exercise on a regular basisandpoor physical condition. For fracture risk, patient reportsno history of fractures,no recent explained fracture,no sudden unexplained fractures, andno previous musculoskeletal injuries.Mental Status:For depression risk, patient reportsnever feels sad, empty, or tearful,no loss of interest in activities,no significant changes in weight,no sleep disturbances or insomnia,no agitation,no loss of energy,no feelings of worthlessness or guilt,no thoughts of suicide,no history of depression, andno history of mood disorders. For orientation, patient reportsno disorientation to time (2:30),no disorientation to date (11-16-24), andno disorientation to place (dr. valdivia). For concentration and memory, patient reportsno decreased concentrating ability,no memory lapses or loss, anddoes not forget words. For speech/motor difficulties, patient reportsno speech difficulties,no difficulty expressing formulated concepts,no difficulty with fine manipulative tasks,no difficulty writing/copying, anddoes not knock things over when trying to pick them up.Functional AbilityFor vision, patient reportsworse both distance and near (wears glasses). For home safety, patient reportsunsafe stairs,unsafe fidel hazzards, anddoes not have hand bars in the bathroom/showerbut reportsno unsafe gas appliances,working smoke/co detectors,use of seatbelts, andgood lighting in the home. For hearing, patient reportsno loss of hearing. For activities of daily living, patient reportsable to bathe with limited or no assistance,able to contol urination and bowels,able to dress with limited or no assistance,able to feed self with limited or no assistance,able to get out of chair or bed with limited or no assistance,able to groom with limited or no assistance, andable to toilet with limited or no assistance. For instrumental activities of daily living, patient reportsable to do house work with limited or no assistance,able to grocery shop with limited or no assistance,able to manage medications with limited or no assistance,able to manage money with limited or no assistance,able to prepare meals with limited or no assistance, andable to use the phone with limited or no assistance. For falls risk assessment, patient reportsno frequent falls while walking,no fall in the past year, andno fall since last visit. For current level of pain, patient reportsno pain: 0. 69 year old female who presents to the office today for [employer] annual wellness Justus Desai APRN [address], [place], [address], [place] - [facility] 11/16/2024 14:41:07 06/10/2025 text/html ROS as noted in the HPI 70 year old female who presents to the office today with concerns of bronchitis--chest congestion, very little cough, irritated throat only on waking in the morning, cp that comes and goes Justus Desai APRN [address], [place], [address], [place] [facility] 06/10/2025 13:56:16 OBGyn Episode No OBEpisode recorded.
--- OUTSIDE RECORDS SUMMARY | 2025-06-10 16:10 | XMS_ITS | Continuity of Care Document ---
Author Organization [facility] Address [address] [place] [address] Assessment No assessment recorded. Plan of Treatment Reminders Order Date Submit Date Provider Last Modified By Organization Details Last Modified Time Details Appointments SAME 2024 01:20P uGanaco Desai APRN Not available Not available Not available Lab None recorded. Referral None recorded. Procedures None recorded. Surgeries None recorded. Imaging electroca rdiogram 2024 025 [facility], [address] [place] [address], [address], 06/10/2025 14:10:58 Medication Orders None recorded. Patient TargetsNo targets recorded. Patient InstructionsNo instructions recorded. Reason for Referral None Reported. Results Created Date Observation Date Name Description Value Unit Range Abnormal Flag Note LastModifiedBy Organization Detail LastModifiedTime 06/10/2006/10/2025 elect rocar diogr am No observ ation record ed. [address], [address], 06/10/2025 14:11:33 Result Notes None recorded. Problems Name Problem SNOMED Code Status Onset Date Resolution Date Notes Provider Name and Address Organization Details Recorded Time Hypothyroidis m 49446192 Active Savana Parra null, [place] - [facility] 2 13:10:42 Hypertensive disorder 11522890 Active Savana Par[place] null, [place] - [facility] 2 13:10:52 Heart disease 96401171 Active Savana Parra null, [place] - [facility] 3 10:42:13 Atrial fibrillation 46771910 Active 2022 Justus Desai, [employer] [address], [place], [address] , [place] - [facility] 3 11:07:05 Acute right otitis media 581712842 Active 2022 Orlin Alva, [employer] [address], [place], [address] , [place] - [facility] 3 16:30:16 Problem Notes None recorded. Procedures Surgical [...] 15:26:37 05/24/20 23 Advance Care Planning completed Savanaminerva Parra [place] - [facility] 05/24/2023 08:19:20 05/24/20 23 Functional Status Assessed completed Savana Parra [place] - [facility] 05/24/2023 08:19:21 03/15/20 15 Colposcopy completed Savana Parra [place] [facility] 06/14/2022 13:07:48 07/02/20 14 Knee Surgery completed Joanne Stears [place] - [facility] 04/2023 16:16:23 11/21/19 14 colonoscopy completed Joanne Stears [place] [facility] 09/2022 08:30:22 10/02/19 10 Back Surgery completed Joanne Stears [place] [facility] 04/2023 16:16:23 Cataract Surgery completed Ashlee Parra [place] [facility] 06/14/2022 13:13:06 Carpal tunnel surgery completed Savana [place]ra [place] [facility] 06/14/2022 13:13:17 Back Surgery completed Savana [place]ra [place] [facility] 06/14/2022 13:13:23 Knee Surgery completed Savana [place]ra [place] [facility] 06/14/2022 13:13:30 Cholecystectomy, laparoscopic completed Savana Parra [place] [facility] 06/14/2022 13:13:43 Tubal Ligation completed Savana Parra [place] [facility] 06/14/2022 13:13:51 Cardiac Cath completed Joanne CASTRO - [facility] 05/05/2023 16:19:03 placement of stent in pulmonary artery completed Joanne Amayas [place] - [facility] 2022 16:19:20 Eye Surgery completed Joanne Hernandez [place] - [facility] 02/10/2024 08:28:10 Imaging Results None recorded. Procedure Notes None recorded. Medical Equipment None Reported. Allergies Allergen ID Allergen Name Allergen Category Reaction Reaction Severity Criticality Documentation Date Start Date Code Code System Note Provider Name and Address Organization Details Recorded Time 687564 Phenergan medicatio n vomiting moderate high 06/14/2022 00716 8 RxNorm Savana [place]rad, [place] - [facility] 13:08:08 Medications Name [...] Updated DateTime 5 160.02 cm 34.4 kg/m2 98563.9 2 g 98 [degF] 18 /min 116 /min 96 % 96 % 112/68 mm[Hg] Joanne Hernandez [place] - [facility] 5 13:25:06 Social History Question Answer Notes LastModified by Organizat ion Details LastModified Time Tobacco Smoking Status Never Smoker Savana Aida [place], [place] - [facility] 06/14/2022 13:12:09 Do You Have An Advance [...] Or The Highest Degree You Have Received? MP52280-0 Information not available 09/23/2022 Have There Been Any Changes To Your Family Or Social Situation? No Information no t available 09/23/2022 What Is The Fluoride Status Of Your Home? Unknown Information not available 09/23/2022 Have You Recently Or Are You Planning To Travel To An Area With Zika Virus? No Information not available 03/03/2023 Do You Have A Medical Power Of Inspector Quality Assurance? No Information not available 09/23/2022 What Was [...] not available 09/23/2022 What is your occupation? [employer] Information not available 05/05/2023 Do you have difficulty dressing, bathing, grooming, or toileting? No Information not available 09/23/2022 What is your exercise level? Moderate Information not available 09/23/2022 Mental Status Question Answer Note LastModified by Organizat ion Details LastModified Time Do you feel stressed (tense, restless, nervous, or anxious, or unable to sleep at night)? WI7544-6 Information not available 09/23/2022 Do you have [...] History Condition Response Arthritis Y Hypercholesterolemia Y Hepatitis Y Hyperlipidemia Y Thyroid Problems Y Hypertension Y Gynecological History Statement/Question Response [...] Details Recorded Time Pneumococcal conjugate PCV20, polysaccharide [id number] conjugate, adjuvant, PF 02/10/20 24 cancelled patient objection Joanne Stears null, [place] - [facility] 02/10/2024 09:18:52 Tdap 02/10/20 24 cancelled patient objection Joanne [place] null, [place] [facility] 02/10/2024 09:18:52 zoster recombinant 11/17/19 25 cancelled patient objection Justus Desai, [employer] [address], [place], [address], [place] [facility] 11/16/2024 14:40:39 Tdap 11/17/19 25 cancelled patient objection Justus Desai, [employer] [address], [place], [address], [place] [facility] 11/16/2024 14:40:39 Pneumococcal conjugate PCV20, polysaccharide [id number] conjugate, adjuvant, PF 11/17/19 25 cancelled patient objection Justus Desai APRN [address], [place], [address], [place] [facility] 11/16/2024 14:40:39 COVID-19 vaccine, vector-nr, rS-Ad26, PF, 0.5 mL 11/20/19 21 completed Joanne Ste[place] null, [place] [facility] 11/29/2022 09:40:46 COVID-19 vaccine, vector-nr, rS-Ad26, PF, 0.5 mL 07/30/20 21 completed Joanne [place] [facility] 11/29/2022 09:40:46 Tdap 02/13/20 13 completed Joanne [place] [facility] 11/29/2022 09:40:46 Td (adult), 2 Lf tetanus toxoid, preservative free, adsorbed 05/07/20 00 completed Jo[place] [facility] 11/29/2022 09:40:46 Hep B, adult 11/19/19 completed Jo[place] [facility] 11/29/2022 09:40:46 Hep B, adult 12/17/19 completed Jo[place] [facility] 11/29/2022 09:40:46 Hep B, adult 06/15/20 completed Joanne [place] [facility] 11/29/2022 09:40:46 Past Encounters Encounter ID Performer Location Encounter Start Date Encounter Closed Date Diagnosis/Indication Diagnosis SNOMED-CT Code Diagnosis ICD10 Code Diagnosis IMO Codes Diagnosis Note [id number] Justus Desai APRN [address] [address] 06/10/2025 13:12:20 06/10/2025 14:01:07 Chest pain 74180671 R07.9 [id number] spoke to nancy and reviewed ekg- sent to dr cruz office for eval Pulmonary congestion 675 [address]25 R09.89 100438 wait on med till seen by cardiology Health Concerns Section Related Observation LastModified by Organization Detai ls LastModified Time None Recorded Concern Status LastModified by Organization Details LastModified Time None Recorded Payers Encounter Date Sequence Insurance Name Policy Number Policy Padilla Covered Member ID Padilla Member ID Guarantor Name 06/10/2025 1 [employer] (MEDICARE REPLACEMENT/A DVANTAGE - PPO) Hailee Arnett [id number] Hailee Arnett Notes Date Note Type Note Provider Name and Address Organization Details Recorded Time 06/10/2025 text/html ROS as noted in the HPI 70 year old female who presents to the office today with concerns of bronchitis--ches t congestion, very little cough, irritated throat only on waking in the morning, cp that comes and goes Justus Desai APRN [address], [place], [address], [place] [facility] 06/10/2025 13:56:16 OBGyn Episode No OBEpisode recorded.
--- OUTSIDE RECORDS SUMMARY | 2025-06-10 16:10 | XMS_ITS | Clinical Summary ---
Author Organization Healthcare Address [address] [place] [address] Care Team Providers Care Quality Assurance Project Manager Name Role Phone Pcp, No Primary Care [...] Diagnosed Date Coronary artery disease invo lving [place] coronary artery of [place] heart 11/24/2023 History of percutaneous coronary intervention [...] - Td or Tdap) 02/12/2023 02/12/2013, 05/07/2000 [id number] Vaccine (3 - 2024- season) 2025 07/30/2021, 11/19/2020 [facility]-Influenza Vaccine (#1) 2025 [facility]-Obesity [...] this topic Medical Devices Implanted Type Area Volunteer Services Assistant Device Identifier Shelf Expiration Date Model / Serial / Lot [id number] Gas Bubble Implanted:Qty: 1 on 11/25/2023 by Silvestre Sotomayor MD at [facility] Right: Eye [employer] 02/12/2024 [id number] / / Description:14% Insurance [facility] MEDICARE Care Teams Quality Assurance Project Manager Relationship Specialty Start Date End Date Malachi, [place] [address] PCP - General Family Medicine 02/09/23
== END 2025-06-10 23:59 | disposition home or self-care (01) ==
LOC: RT 15:40
PROVIDERS: PCP Nurse Practitioner Family; Visit Provider Nurse Practitioner Family
DX: I48.0 Paroxysmal atrial fibrillation (principal); R94.31 Abnormal electrocardiogram [ECG] [EKG]
CPT/HCPCS: 93225; 93227

== ENCOUNTER 2025-06-12 16:41 | Outpatient (CLI) | payer MEDICARE, SELFPAY ==
--- OUTSIDE RECORDS SUMMARY | 2025-06-12 16:44 | XMS_ITS | Data Portability ---
Author Organization [facility] Address [address] [place] [address] Assessment Encounter Date Assessment Date Assessment LastModified [...] Organization Details Last Modified Time Details Appointments None recorded. Lab rapid flu (A+B) 2024 025 [facility], [address] [place] [address], [phone], 14:01:10 rapid SARS CoV + SARS CoV 2 Ag, QL IA, respiratory specimen 2024 025 [facility], [address] [place] [address], [phone], 14:01:09 Referral None recorded. Procedures None recorded. Surgeries None recorded. [facility] [address] [place] [address], [phone], 14:10:58 Medication Orders doxycycline hyclate 100 mg tablet 2024 025 [facility], [address], [address], 14:09:27 benzonatate 100 mg capsule 2024 025 [facility], [address] [place], [address], 14:09:18 dexamethaso ne sodium phosphate 4 mg/mL injection solution 2024 025 [facility] Not available 13:22:03 dexamethaso ne sodium phosphate 4 mg/mL injection solution 2024 025 [facility]ears Not available 13:22:03 Patient TargetsNo targets recorded. Patient Instructions Encounter Date Encounter Id Patient Instructions Last Modified By Organization Details Last Modified Time 11/16/2024 [id number] advance directives: care instructions efryman Not available [...] SARS CoV antigen Negati ve Not Available [address], [place], [address], 11/08/2024 13:29:35 03/27/20 25 11/08/2024 rapid flu (A+B) Flu positi ve Not Available [address], [address], 11/08/2024 13:29:26 11/09/19 25 11/08/2024 rapid flu (A+B) Type A Not Available [address], [address], 11/08/2024 13:29:26 03/04/20 25 02/27/2025 MAMMO , scree michelle, digit al, bilat eral No observ ation [facility] [address], [place], [address], 03/04/2025 12:32:30 06/10/2006/10/2025 elect rocar diogr am No observ ation record ed. efryman [address], [address], 06/10/2025 14:11:33 06/11/2006/10/2025 elect rocar diogr am No observ ation record ed. BARCODE [address], [address], 06/11/2025 15:35:07 Result Notes None recorded. Problems Name Problem SNOMED Code Status Onset Date Resolution Date Notes Provider Name and Address Organization Details Recorded Time Hypothyroidis m 19704432 Active Savana Parra null, [place] - [facility] 2 13:10:42 Hypertensive disorder 59140359 Active Savana Par[place] null[place] - [facility] 2 13:10:52 Heart disease 87866259 Active Savana Par[place] - [facility] 3 10:42:13 Atrial fibrillation 92427936 Active 2022 Justus Desai, [employer] [address], [place], [address] , [place] - [facility] 3 11:07:05 Acute right otitis media 269796543 Active 2022 Orlin Artie, [employer] [address], [place], [address] , [place] - [facility] 3 16:30:16 Problem [...] 05/24/2023 08:19:21 03/15/20 15 Colposcopy completed Savana Quinonesler [place] - [facility] 06/14/2022 13:07:48 07/02/20 14 [...] [facility] 06/14/2022 13:13:30 Cholecystectomy, laparoscopic completed Savana CASTRO - [facility] 06/14/2022 13:13:43 Tubal Ligation completed Savana CASTRO - [facility] 06/14/2022 13:13:51 Cardiac Cath completed Joanne CASTRO - [facility] 05/05/2023 16:19:03 placement of stent in pulmonary artery completed Joanne Hernandez [place] - [facility] 2022 16:19:20 Eye Surgery completed Joanne Amaays [place] - [facility] 02/10/2024 08:28:10 Imaging Results None recorded. Procedure Notes None recorded. Medical Equipment None Reported. Allergies Allergen ID Allergen Name Allergen Category Reaction Reaction Severity Criticality Documentation Date Start Date Code Code System Note Provider Name and Address Organization Details Recorded Time 108568 Phenergan medicatio n vomiting moderate high 06/14/2022 04881 8 RxNorm Savana conrad, MATTHEW - [facility] 13:08:08 Medications Name Sig Start Date Stop Date Status Note LastModified by Organization Details LastModified Time mucus er 600mg tab TAKE 1 TABLET BY MOUTH EVERY 12 HOURS FOR 14 DAYS 05/24 completed Not Available Not Available Not Available eq sinus & congestion 30mg tab TAKE [...] Updated DateTime 5 160.02 cm 42.3 kg/m2 428108. 58 g 109 /min 96 % 96 % 18 /min 0 124/78 mm[Hg] Savana Parra [facility] 5 13:17:56 Date Recorded Body height Body mass index (BMI) Body weight Heart rate Oxygen saturation Oxygen saturation in Arterial blood by Pulse oximetry Respiratory rate Pain severity - 0-10 verbal numeric rating [Score] - Reported Systolic And Diastolic Provider Name and Address Organization Details Last Updated DateTime 5 160.02 cm 40.7 kg/m2 015118. 25 g 95 /min 96 % 96 [...] 5 160.02 cm 18 /min 40.4 kg/m2 064104. 06 g 98.3 [degF] 90 /min 95 % 95 % 132/76 mm[Hg] Joanne Amayas [place] - [facility] 5 13:28:49 Date Recorded Body height Respiratory rate Body mass index (BMI) Body weight Body temperature Heart rate Oxygen saturation Oxygen saturation in Arterial blood by Pulse oximetry Systolic And Diastolic Provider Name and Address Organization Details Last Updated DateTime 160.02 cm 18 /min 40.4 kg/m2 080486. 06 g 97.9 [degF] 82 /min 95 % 95 % 128/80 mm[Hg] Joannelolis Amayas [place] - [facility] 5 14:10:59 Date Recorded Body height Body mass index (BMI) Body weight Body temperature Respiratory rate Heart rate Oxygen saturation Oxygen saturation in Arterial blood by Pulse oximetry Systolic And Diastolic Provider Name and Address Organization Details Last Updated DateTime 160.02 cm 34.4 kg/m2 20996.9 2 g 98 [degF] 18 /min 116 /min 96 % 96 % 112/68 mm[Hg] Joanne Jose Luiss [place] - [facility] 5 13:25:06 Social History Question Answer Notes LastModified by Organizat ion Details LastModified Time Tobacco Smoking Status Never Smoker Savana conrad, [place] - [facility] 06/14/2022 13:12:09 Do [...] Or The Highest Degree You Have Received? [id number] Information not available 09/23/2022 Have There Been Any Changes To Your Family Or Social Situation? No Information no t available 09/23/2022 What Is The Fluoride Status Of Your Home? Unknown Information not available 09/23/2022 Have You Recently Or Are You Planning To Travel To An Area With Zika Virus? No Information not available 03/03/2023 Do You Have A Medical Power Of New Business Clerk? No Information not available 09/23/2022 What Was [...] not available 09/23/2022 What is your occupation? [employer] Information not available 05/05/2023 Do you have difficulty dressing, bathing, grooming, or toileting? No Information not available 09/23/2022 What is your exercise level? Moderate Information not available 09/23/2022 Mental Status Question Answer Note LastModified by Organizat ion Details LastModified Time Do you feel stressed (tense, restless, nervous, or anxious, or unable to sleep at night)? [id number] Information not available 09/23/2022 Do you have [...] Details Recorded Time Pneumococcal conjugate PCV20, polysaccharide [id number] conjugate, adjuvant, PF 02/10/20 24 cancelled patient objection Joanne Stears null, [facility] 02/10/2024 09:18:52 Tdap 02/10/20 24 cancelled patient objection Joanne Stears null, [facility] 02/10/2024 09:18:52 zoster recombinant 11/17/19 25 cancelled patient objection Justus Byrdguerita, [address], [place], [address], [place] - [facility] 11/16/2024 14:40:39 Tdap 11/17/19 25 cancelled patient objection Priscillalethalolis Byrdguerita, [employer], [place], [address], [place] - [facility] 11/16/2024 14:40:39 Pneumococcal conjugate PCV20, polysaccharide [id number] conjugate, adjuvant, PF 11/17/19 25 cancelled patient objection Justus Byrdkanshoaib, [address], [place], [address], [place] - [facility] 11/16/2024 14:40:39 COVID-19 vaccine, vector-nr, rS-Ad26, PF, 0.5 mL 11/20/19 21 completed Joanne Stears null, [facility] 11/29/2022 09:40:46 COVID-19 vaccine, vector-nr, rS-Ad26, PF, 0.5 mL 07/30/20 21 completed Joanne Stears null, [facility] 11/29/2022 09:40:46 Tdap 02/13/20 13 completed Joanne Stears null, [facility] 11/29/2022 09:40:46 Td (adult), 2 Lf tetanus toxoid, preservative free, adsorbed 05/07/20 00 completed Joanne Stears null, [facility] 11/29/2022 09:40:46 Hep B, adult 11/19/19 01 completed Joanne Stears null, [facility] 11/29/2022 09:40:46 Hep B, adult 12/17/19 completed Joanne Stears null, [place] - [facility] 11/29/2022 09:40:46 Hep B, adult 06/15/20 completed Joanne Stears null, [place] - [facility] 11/29/2022 09:40:46 Past Encounters Encounter ID Performer Location Encounter Start Date Encounter Closed Date Diagnosis/Indication Diagnosis SNOMED-CT Code Diagnosis ICD10 Code Diagnosis IMO Codes Diagnosis Note [id number] Justus Desai [place] [id number] 1 06/14/2022 12:45:21 06/14/2022 13:44:21 Acute bronchitis 85573424 J20.9 [id number] Justus Desai [place] [id number] 09/23/2022 16:08:07 09/23/2022 16:51:25 Allergic rhinitis 05931606 J30.9 [id number] [facility] [address] [address] 11/29/2022 09:33:40 11/29/2022 10:48:14 Irregular heart beat 442387382 R00.8 ekg sinus rhythm with marked sinus arrhythmia - pt report no cardiac history. has had numerous family member with cardiac history-pt states she had labs in dr siu office last tuesday but has not been called about resultsany issues go to ed Streptococ kelly sore throat 09681251 J02.0 Acute righ t otitis media 644683840 H66.91 treat with amoxicilli n [id number] Justus Desai [address] [address] 12/23/2022 11:21:05 12/23/2022 12:05:50 Body mass index 30+ - obesity 799710258 Z68.41 Obesity 071564830 E66.9 Acute bronchitis 2737950 2 J20.9 call for no improvemen t or worsening of symptoms [id number] Justus Desai [place] [address] 03/03/2023 10:09:51 03/03/2023 11:06:39 Body mass index 40+ - severely obese 085461597 Z68.41 Morbid obesity 069569274 E66.01 Acute righ t otitis media 467796144 H66.91 treat with amoxicilli n [id number] Orlin Alva APRN [address] [address] 05/05/2023 16:04:48 05/05/2023 16:54:10 Acute right otitis media 728514231 H66.91 Otitis MediaDiscu ssed otitis media, potential [...] improvemen t or sooner if required. Hypothyroidism 61891852 E03.9 unknown if controlled possible medication side effects with reported weight gain or possible uncontroll ed hypothyroi dismCurren t treatment maintained .TSH labs check, will call with results ASAPI discussed thyroid disease in therapy and follow-up. The goal is to maintain TSH level between 0.5 and 2.5 mu/L and FT4 within normal range. [id number] Justus Desai APRN [address] [address] 05/24/2023 08:15:13 05/24/2023 09:12:59 Adult health examination 718626292 Z00.00 Depression screening 171 061949 Z13.31 Examinatio n of blood pressure 223450946 Z01.30 Diet education 46242910 Z71.3 Counseling 096150383 Z71 .82 Exercise counseling . Patient encouraged to exercise 30 minutes 5 days a week. At [facility] risk for falls 689302245 Z91.81 STEADI FAST screening score of . Advance care planning 71 4270190 Z71.89 Finding of body mass index 302179034 E66.9 Body mass index 30+ - obesity 814455954 Z68.41 Vitamin B1 2 deficiency (non anemic) 26906106 E53.8 Seasonal a llergic rhinitis 067707672 J30.2 Coronary arteriosclerosis 87940778 I25.10 continue to follow cardiology [id number] Justus Desai [address] [address] 02/10/2024 08:00:24 02/10/2024 09:31:19 Adult health examination 049542731 Z00.00 Body mass index 40+ - severely obese 321514392 Z68.41 42.3 Morbid obesity 544421243 E66.01 Hypertensive disorder 38 764567 I10 labs Hypothyroidism 91168072 E03.9 labs Heart disease 26993226 I 51.9 Screening for malignant neoplasm of colon 764531763 Z12.11 Postmenopausal state 764 08785 Z78.0 Z13.820 Z01.419 Atrial fibrillation 4943 6004 I48.91 notified her that it would be $15.31 at [facility] for a 30 day supply Vaccination needed 06602 20869 18903 Z23 Pneumococc al vaccination declined 540619412 Z28.21 Tetanus di phtheria and acellular pertussis vaccination declined 6388547109 4323273 Z28.20 Hepatitis C screening declined 9574882448 5105 Z53.20 Increased frequency of urination 207422108 R35.0 labs,ua Fatigue 19294210 R53.83 labs Scar 166906079 L90.5 bactroban cream, derm referral Acute urin rich tract infection 043250316 N39.0 [id number] Justus Desai APRN [address] [address] 07/06/2024 14:29:06 07/06/2024 15:29:24 Body mass index 40+ - severely obese 109249853 Z68.41 42.3 Morbid obesity 543520902 E66.01 Acute uppe r respiratory infection 02087146 J06.9 no sign of a bacterial infection. [...] improvemen t over the next 48-72 hours [id number] Justus Desai [address] [address] 10/15/2024 13:05:24 10/15/2024 13:33:54 Acute upper respiratory infection 99327597 J06.9 no sign of a bacterial infection. likely viral. viruses can take 7-14 days to run their course.mon itor temp. Tylenol or Motrin as needed for pain or fever.enco urage fluids, water, Gatorade, power aide, Pedialyte if infant/tod dler/child warm salt water gargleswar m fluidssore throat lozengessl eep elevatedhu midifier/v aporizerfo llow up immediatel y for new or worsening symptoms or no noticeable improvemen t over the next 48-72 hours [id number] Justus Desai [place] [id number] 11/05/2024 13:35:04 11/05/2024 14:00:28 Acute bronchitis 19018069 J20.9 call for no improvemen t or worsening of symptomsdi scussed med in detail Cough 49951211 R05.9 if worsening or no improvemen t return [id number] Justus Desai [address] [address] 11/08/2024 13:14:51 11/08/2024 14:28:54 Influenza caused by Influenza A virus 444090030 J09.X2 [id number] Justus Desai [address] [address] 11/16/2024 13:37:03 11/16/2024 14:55:08 Adult health examination 040476627 Z00.00 Depression screening 171 079892 Z13.31 A depression screening was completed via a standardiz ed screening tool. 5 minutes were spent discussing depression screening results and risk factors. Examinatio n of blood pressure 793206755 Z01.30 Diet education 75813832 Z71.3 Counseling 115839373 Z71 .82 Exercise counseling . Patient encouraged to exercise 30 minutes 5 days a week. [address] [facility] ed risk for falls 840483265 Z91.81 STEADI FAST screening score of __1___. Advance care planning 71 2794316 Z71.89 Morbid obesity 153666009 E66.[address] vaccination declined 5583194478 102 Z28.21 3342387691 Vaccine de clined by patient 1398864731 02 Z28.21 1708048118 Pneumococc al vaccination declined 835578060 Z28.21 71941528 Severe obesity 522674928 1 9104 E66.813 E66.01 Z68.41 2135716929 40.4 [id number] Justus Desai APRN [address] [address] 06/10/2025 13:12:20 06/10/2025 14:01:07 Chest pain 70160072 R07.9 [id number] spoke to nancy and reviewed ekg- sent to dr cruz office for eval Pulmonary congestion 675 29812 R09.89 [id number] wait on med till seen by cardiology Health Concerns Section Related Observation LastModified by Organization Detai ls LastModified Time None Recorded Concern Status LastModified by Organization Details LastModified Time None Recorded Advance Directives Directive N: Payers Insurance Date Sequence Insurance Name Policy Number Policy Padilla Covered Member ID Padilla Member ID Guarantor Name 06/10/2025 1 [employer] (MEDICARE REPLACEMENT/A DVANTAGE - PPO) Hailee Arnett [id number] Hailee Arnett Notes Date Note Type Note Provider Name and Address Organization Details Recorded Time 10/15/2024 text/html ROS as noted in the HPI 69 yr old female presents for right ear pain, sinus tenderness and clear sinus congestion. Denies fever. Justus Desai APRN [facility] [address], [place], [address], [facility] - [facility] 10/15/2024 13:33:59 11/05/2024 text/html ROS as noted in the [facility] 69 yr old female with a cough after being out in cold/windy/damp weather watching outdoor sports. She denies fever. wants steroid shot Justus Desai APRN [address], [place], [address], [place] - [facility] 11/05/2024 13:54:58 11/08/2024 text/html ROS as noted in the [facility] 69 year old female who presents to the office today with concerns of continued cough, yellow/ green congestion, and fever Justus Desai, [employer] [address], [place], [address], [place] - [facility] 11/08/2024 14:02:06 11/16/2024 text/html [...] current level of pain, patient reportsno pain: 0/10. 69 year old female who presents to the office today for [facility] annual wellness Justus Desai APRN [address], [place], [address], [place] [facility] 11/16/2024 14:41:07 06/10/2025 text/html ROS as noted in the HPI 70 year old female who presents to the office today with concerns of bronchitis--chest congestion, very little cough, irritated throat only on waking in the morning, cp that comes and goes Justus Desai APRN [address], [place], [address], [place] - [facility] 06/10/2025 13:56:16 OBGyn Episode No OBEpisode recorded.
--- OUTSIDE RECORDS SUMMARY | 2025-06-12 16:44 | XMS_ITS | Clinical Summary ---
Author Organization Healthcare Address [address] [place] [address] Care Team Providers Care Garbage Man Name Role Phone Pcp, No Primary Care [...] Diagnosed Date Coronary artery disease invo lving nikolski coronary artery of nikolski heart 11/24/2023 History of percutaneous coronary intervention [...] - Td or Tdap) 02/12/2023 02/12/2013, 05/07/2000 [id number] Vaccine (3 - 2024- season) 2025 07/30/2021, [...] this topic Medical Devices Implanted Type Area Metal Inspector Device Identifier Shelf Expiration Date Model / Serial / Lot [id number] Gas Bubble Implanted:Qty: 1 on 11/25/2023 by Silvestre Sotomayor MD at [facility] Right: Eye [employer] 02/12/2024 [id number] / / Description:14% Insurance [facility] MEDIC[employer] Care Teams Garbage Man Relationship Specialty Start Date End Date Malachi, [place] [address] PCP - General Family Medicine 02/09/23
--- OUTSIDE RECORDS SUMMARY | 2025-06-12 16:44 | XMS_ITS | Continuity of Care Document ---
Author Organization [facility], [facility] Address [address] [place] [address] Assessment No assessment recorded. Plan of Treatment Reminders Order Date Submit Date Provider Last Modified By Organization Details Last Modified Time Details Appointments None recorded. Lab None recorded. Referral None recorded. Procedures None recorded. Surgeries None recorded. Imaging electrocard iogram 2024 025 [email or web address] [facility], [address] [place] [address], [address], 14:10:58 Medication Orders None recorded. Patient TargetsNo targets recorded. Patient InstructionsNo instructions recorded. Reason for Referral None Reported. Results Created Date Observation Date Name Description Value Unit Range Abnormal Flag Note LastModifiedBy Organization Detail LastModifiedTime 06/10/2006/10/2025 elect rocar diogr am No observ ation record ed. [email or web address] [address], [address], 06/10/2025 14:11:33 06/11/2006/10/2025 elect rocar diogr am No observ ation record ed. [address], [address], 06/11/2025 15:35:07 Result Notes None recorded. Problems Name Problem SNOMED Code Status Onset Date Resolution Date Notes Provider Name and Address Organization Details Recorded Time Hypothyroidis m 29938493 Active Savana conrad [facility] 13:10:42 Hypertensive disorder 18592139 Active Savana Quinonesler null, [place] - [facility] 13:10:52 Heart disease 16446162 Active Savana Aida null, [place] - [facility] 10:42:13 Atrial fibrillation 43128816 Active 2022 Justus Desai, STEWARD/STEWARD[address] ROOM [address], [place], [address] , [place] - [facility] 3 11:07:05 Acute right otitis media 248337598 Active 2022 Orlin Alva, STEWARD/STEWARD[address] ROOM [address], [place], [address] , [place] - [facility] 3 16:30:16 Problem [...] 05/24/20 23 Advance Care Planning completed Savana Parra [place] - [facility] 05/24/2023 08:19:20 05/24/20 23 Functional Status Assessed completed Savana Quinonesler [place] - [facility] 05/24/2023 08:19:21 03/15/20 15 Colposcopy completed Savanaminerva Parra [place] - [facility] 06/14/2022 13:07:48 07/02/20 [...] [facility] 2022 16:19:20 Eye Surgery completed Joanne Amayas [place] - [facility] 02/10/2024 08:28:10 Imaging Results None recorded. Procedure Notes None recorded. Medical Equipment None Reported. Allergies Allergen ID Allergen Name Allergen Category Reaction Reaction Severity Criticality Documentation Date Start Date Code Code System Note Provider Name and Address Organization Details Recorded Time 014466 Phenergan medicatio n vomiting moderate high 06/14/2022 71154 8 RxNorm Savana conrad, MATTHEW - [facility] [...] Updated DateTime 5 160.02 cm 34.4 kg/m2 33561.9 2 g 98 [degF] 18 /min 116 /min 96 % 96 % 112/68 mm[Hg] Joanne Stears [place] - [facility] 5 13:25:06 Social History [...] Or The Highest Degree You Have Received? [id number] Information not available 09/23/2022 Have There Been Any Changes To Your Family Or Social Situation? No Information no t available 09/23/2022 What Is The Fluoride Status Of Your Home? Unknown Information not available 09/23/2022 Have You Recently Or Are You Planning To Travel To An Area With Zika Virus? No Information not available 03/03/2023 Do You Have A Medical Power Of Manager Care? No Information not available 09/23/2022 What Was [...] Status Question Answer Note LastModified by Organizat [employer] Details LastModified Time Do you use any [...] not available 09/23/2022 What is your occupation? [employer] Information not available 05/05/2023 Do you have difficulty dressing, bathing, grooming, or toileting? No Information not available 09/23/2022 What is your exercise level? Moderate Information not available 09/23/2022 Mental Status Question Answer Note LastModified by Organizat ion Details LastModified Time Do you feel stressed (tense, restless, nervous, or anxious, or unable to sleep at night)? [id number] Information not available 09/23/2022 Do you have [...] 13:07:35 Medical History Condition Response Arthritis Y Hyperlipidemia Y Thyroid Problems Y Hypercholesterolemia Y Hepatitis Y Hypertension Y Gynecological History [...] Details Recorded Time Pneumococcal conjugate PCV20, polysaccharide [id number] conjugate, adjuvant, PF 02/10/20 24 cancelled patient objection Joanne Hernandez null, [facility] 02/10/2024 09:18:52 Tdap 02/10/20 24 cancelled patient objection Joanne Hernandez null, [facility] 02/10/2024 09:18:52 zoster recombinant 11/17/19 25 cancelled patient objection Justus Desai, STEWARD/STEWARD[address] RO[address], [place], [address], [facility] 11/16/2024 14:40:39 Tdap 11/17/19 25 cancelled patient objection Justus Desai, ST[address]/ST[address], [place], [address], [facility] 11/16/2024 14:40:39 Pneumococcal conjugate PCV20, polysaccharide [id number] conjugate, adjuvant, PF 11/17/19 25 cancelled patient objection Justus Desai, STEWARD/STEWARD[address] RO[address], [place], [address], [facility] 11/16/2024 14:40:39 COVID-19 vaccine, vector-nr, rS-Ad26, PF, 0.5 mL 11/20/19 21 completed Joanne Hernandez null, [facility] 11/29/2022 09:40:46 COVID-19 vaccine, vector-nr, rS-Ad26, PF, 0.5 mL 07/30/20 21 completed Joanne Stears null, [place] - [facility] 11/29/2022 09:40:46 Tdap 02/13/20 13 completed Joanne Stears null[place] [facility] 11/29/2022 09:40:46 Td (adult), 2 Lf tetanus toxoid, preservative free, adsorbed 05/07/20 00 completed Joanne Stears null[place] [facility] 11/29/2022 09:40:46 Hep B, adult 11/19/19 01 completed Joanne Stears null[place] [facility] 11/29/2022 09:40:46 Hep B, adult 12/17/19 completed Joanne Stears [place] [facility] 11/29/2022 09:40:46 Hep B, adult 06/15/20 01 completed Joanne Stears null[place] [facility] 11/29/2022 09:40:46 Past Encounters Encounter ID Performer Location Encounter Start Date Encounter Closed Date Diagnosis/Indication Diagnosis SNOMED-CT Code Diagnosis ICD10 Code Diagnosis IMO Codes Diagnosis Note [id number] Justus Desai APRN [address] [address] 06/10/2025 13:12:20 06/10/2025 14:01:07 Chest pain 27740071 R07.9 [id number] spoke to nancy and reviewed ekg- sent to dr cruz office for eval Pulmonary congestion 675 20493 R09.89 784307 wait on med till seen by cardiology Health Concerns Section Related Observation LastModified by Organization Detai ls LastModified Time None Recorded Concern Status LastModified by Organization Details LastModified Time None Recorded Payers Encounter Date Sequence Insurance Name Policy Number Policy Padilla Covered Member ID Padilla Member ID Guarantor Name 06/10/2025 1 [employer] (MEDICARE REPLACEMENT/A DVANTAGE - PPO) Hailee Arnett [id number] Hailee Arnett Notes Date Note Type Note Provider Name and Address Organization Details Recorded Time 06/10/2025 text/html ROS as noted in the HPI 70 year old female who presents to the office today with concerns of bronchitis--ches t congestion, very little cough, irritated throat only on waking in the morning, cp that comes and goes Justus Desai, STEWARD/STEWARDESS ROOM [address], [place], [address], [place] - [facility] 06/10/2025 13:56:16 OBGyn Episode No OBEpisode recorded.
== END 2025-06-12 23:59 | disposition home or self-care (01) ==
LOC: RT 16:42
PROVIDERS: PCP Nurse Practitioner Family; Visit Provider Nurse Practitioner Family
DX: I48.0 Paroxysmal atrial fibrillation (principal); R94.31 Abnormal electrocardiogram [ECG] [EKG]
CPT/HCPCS: 93270

== ENCOUNTER 2025-06-18 06:14 | Outpatient (CLI) | payer MEDICARE, SELFPAY ==
--- NOTE | 2025-06-18 | CA_ITS ---
APPROVED REPORT Exam: Pharmacologic Technologist: Joanie Hernandez Stress Nurse: Mallory PERALTA, RN Ht: 5 ft 2 in Wt: 194 lbs BSA: 1.89 m2 HR: 71 bpm BP: 136/88 mmHg Indications: Refractory Angina Pectoris, Coronary Artery Disease, Paroxysmal Atrial Fibrillation Stress Test Details Test: Lexiscan HR Resting HR: 71 bpm Max Heart Rate (APMHR): 148.787872 bpm Max HR Achieved: 146 bpm Target HR (85% APMHR): 125.952734 bpm % of APMHR: 98.65 Recovery HR: 93 bpm BP Resting BP: 136.0/88.0 mmHg Max BP: 131.0/79.0 mmHg Recovery BP: 123.0/84.0 mmHg ECG Resting ECG: Paroxysmal atrial fibrillation Stress ECG Conclusion Lungs clear to auscultation prior to start of test. Symptoms: Dizziness, chest pain, dyspnea Arrhythmias/Ectopy: Paroxysmal atrial fibrillation with RVR ST-T Changes: - Conclusion: Nondiagnostic ECG/Lexiscan Electronically signed by : Sandrita Corona MD 06/19/2025 00:56:45
--- OUTSIDE RECORDS SUMMARY | 2025-06-18 06:17 | XMS_ITS | Continuity of Care Document ---
Author Organization [facility], [facility] Address [address] [place] [address] Assessment No assessment recorded. Plan of Treatment Reminders Order Date Submit Date Provider Last Modified By Organization Details Last Modified Time Details Appointments None recorded. Lab None recorded. Referral None recorded. Procedures None recorded. Surgeries None recorded. Imaging electrocard iogram 2024 025 [email or web address] [facility], [address] [place] [address], [address], 14:10:58 Medication Orders None recorded. Patient TargetsNo targets recorded. Patient InstructionsNo instructions recorded. Reason for Referral None Reported. Results Created Date Observation Date Name Description Value Unit Range Abnormal Flag Note LastModifiedBy Organization Detail LastModifiedTime 06/10/2006/10/2025 elect rocar diogr am No observ ation record ed. [email or web address] [address], [address], 06/10/2025 14:11:33 06/11/2006/10/2025 elect rocar diogr am No observ ation record ed. [email or web address] [address], [address], 06/14/2025 15:18:16 Result Notes None recorded. Problems Name Problem SNOMED Code Status Onset Date Resolution Date Notes Provider Name and Address Organization Details Recorded Time Hypothyroidis m 16609203 Active Savana conrad [facility] 13:10:42 Hypertensive disorder 78106173 Active Savanaminerva Parra null, [place] - [facility] 13:10:52 Heart disease 82493549 Active Savana Aida null[place] - [facility] 3 10:42:13 Atrial fibrillation 04770703 Active 2022 Justus Desai, AGENCY RECRUITER [address], [place], [address] , [place] - [facility] 11:07:05 Acute right otitis media 889043065 Active 2022 Orlin Alva, AGENCY RECRUITER [address], [place], [address] , [place] - [facility] 3 16:30:16 Problem [...] [facility] 06/14/2022 13:13:23 Knee Surgery completed Savana CASTRO - [facility] 06/14/2022 13:13:30 Cholecystectomy, laparoscopic completed Savana CASTRO - [facility] 06/14/2022 13:13:43 Tubal Ligation completed Savana CASTRO - [facility] 06/14/2022 13:13:51 Cardiac Cath completed Joanne CASTRO - [facility] 05/05/2023 16:19:03 placement of stent in pulmonary artery completed Joanne Hernandez [place] - [facility] 2022 16:19:20 Eye Surgery completed Joanne CASTRO - [facility] 02/10/2024 08:28:10 Imaging Results None recorded. Procedure Notes None recorded. Medical Equipment None Reported. Allergies Allergen ID Allergen Name Allergen Category Reaction Reaction Severity Criticality Documentation Date Start Date Code Code System Note Provider Name and Address Organization Details Recorded Time 590142 Phenergan medicatio n vomiting moderate high 06/14/2022 07522 8 RxNorm Savana conrad, MATTHEW - [facility] [...] Not Available levothyroxi ne 50 mcg tablet Take 1 tablet by mouth once daily 2024 active Not Available Not Available Not Avai lable cephalexin 500 mg capsule TAKE 1 CAPSULE [...] Updated DateTime 5 160.02 cm 34.4 kg/m2 88480.9 2 g 98 [degF] 18 /min 116 [...] Or The Highest Degree You Have Received? [id number] Information not available 09/23/2022 Have There Been Any Changes To Your Family Or Social Situation? No Information no t available 09/23/2022 What Is The Fluoride Status Of Your Home? Unknown Information not available 09/23/2022 Have You Recently Or Are You Planning To Travel To An Area With Zika Virus? No Information not available 03/03/2023 Do You Have A Medical Power Of American Studies Professor? No Information not available 09/23/2022 What Was [...] not available 09/23/2022 What is your occupation? [email or web address] Information not available 05/05/2023 Do you have difficulty dressing, bathing, grooming, or toileting? No Information not available 09/23/2022 What is your exercise level? Moderate Information not available 09/23/2022 Mental Status Question Answer Note LastModified by Organizat ion Details LastModified Time Do you feel stressed (tense, restless, nervous, or anxious, or unable to sleep at night)? [id number] Information not available 09/23/2022 Do you have [...] Details Recorded Time Pneumococcal conjugate PCV20, polysaccharide [id number] conjugate, adjuvant, PF 02/10/20 24 cancelled patient objection Joanne Hernandez null, [facility] 02/10/2024 09:18:52 Tdap 02/10/20 24 cancelled patient objection Joanne Hernandez null, [facility] 02/10/2024 09:18:52 zoster recombinant 11/17/19 25 cancelled patient objection Justus Desai APRN [address], [address], [facility] 11/16/2024 14:40:39 Tdap 11/17/19 25 cancelled patient objection Justus Desai APRN [address], [address], [facility] 11/16/2024 14:40:39 Pneumococcal conjugate PCV20, polysaccharide [id number] conjugate, adjuvant, PF 11/17/19 25 cancelled patient objection Justus Desai APRN [address], [address], [facility] 11/16/2024 14:40:39 COVID-19 vaccine, vector-nr, rS-Ad26, PF, 0.5 mL 11/20/19 21 completed Joanne Hernandez null, [facility] 11/29/2022 09:40:46 COVID-19 vaccine, vector-nr, rS-Ad26, [...] B, adult 12/17/19 completed Joanne Stears null, [place] - [facility] 11/29/2022 09:40:46 Hep B, adult 06/15/20 completed Joanne Stears null, [place] - [facility] 11/29/2022 09:40:46 Past Encounters Encounter ID Performer Location Encounter Start Date Encounter Closed Date Diagnosis/Indication Diagnosis SNOMED-CT Code Diagnosis ICD10 Code Diagnosis IMO Codes Diagnosis Note [id number] Justus Desai APRN [address] [address] 06/10/2025 13:12:20 06/10/2025 14:01:07 Chest pain 90392719 R07.9 [id number] spoke to nancy and reviewed ekg- sent to dr cruz office for eval Pulmonary congestion 675 39871 R09.89 008043 wait on med till seen by cardiology Health Concerns Section Related Observation LastModified by Organization Detai ls LastModified Time None Recorded Concern Status LastModified by Organization Details LastModified Time None Recorded Payers Encounter Date Sequence Insurance Name Policy Number Policy Padilla Covered Member ID Padilla Member ID Guarantor Name 06/10/2025 1 [employer] (MEDICARE REPLACEMENT/A DVANTAGE - PPO) Hailee Arnett [id number] Hailee Arnett Notes Date Note Type Note Provider Name and Address Organization Details Recorded Time 06/10/2025 text/html ROS as noted in the HPI 70 year old female who presents to the office today with concerns of bronchitis--ches t congestion, very little cough, irritated throat only on waking in the morning, cp that comes and goes Justus Desai, AGENCY RECRUITER [address], [place], [address], [facility] - [facility] 06/10/2025 13:56:16 OBGyn Episode No OBEpisode recorded.
--- OUTSIDE RECORDS SUMMARY | 2025-06-18 06:17 | XMS_ITS | Clinical Summary ---
Author Organization Healthcare Address [address] [place] [address] Care Team Providers Care Edger Machine Helper Name Role Phone Pcp, No Primary Care [...] Diagnosed Date Coronary artery disease invo lving samish coronary artery of samish heart 11/24/2023 History of percutaneous coronary intervention [...] - Td or Tdap) 02/12/2023 02/12/2013, 05/07/2000 [id number] Vaccine (3 - 2024- season) 2025 07/30/2021, [...] this topic Medical Devices Implanted Type Area Concrete Laborer Device Identifier Shelf Expiration Date Model / Serial / Lot [id number] Gas Bubble Implanted:Qty: 1 on 11/25/2023 by Silvestre Sotomayor MD at [facility] Right: Eye [employer] 02/12/2024 [id number] / / Description:14% Insurance [facility] MEDICARE Care Teams Edger Machine Helper Relationship Specialty Start Date End Date Malachi, [place] [address] PCP - General Family Medicine 02/09/23
--- OUTSIDE RECORDS SUMMARY | 2025-06-18 06:17 | XMS_ITS | Data Portability ---
Author Organization [facility] Address [address] [place] [address] Assessment Encounter Date Assessment Date Assessment LastModified [...] recorded. Lab rapid flu (A+B) 2024 025 [facility], [address] [place] [address], [phone], 14:01:10 rapid SARS CoV + SARS CoV 2 Ag, QL IA, respiratory specimen 2024 025 [facility], [address] [place] [address], [phone], 14:01:09 Referral None recorded. Procedures None recorded. Surgeries None recorded. [email or web address] [address] [place] [address], [phone], 14:10:58 Medication Orders doxycycline hyclate 100 mg tablet 2024 025 [facility], [address], [address], 14:09:27 benzonatate 100 mg capsule 2024 025 [facility], [address] [place], [address], 14:09:18 dexamethaso ne sodium phosphate 4 mg/mL injection solution 2024 025 [email or web address] Not available 13:22:03 dexamethaso ne sodium phosphate 4 mg/mL injection solution 2024 025 bstears Not available 13:22:03 Patient TargetsNo targets recorded. Patient Instructions Encounter Date Encounter Id Patient Instructions Last Modified By Organization Details Last Modified Time 11/16/2024 [id number] advance directives: care instructions efryman Not available [...] SARS CoV antigen Negati ve Not Available [address], [place], [address], 11/08/2024 13:29:35 03/27/20 25 11/08/2024 rapid flu (A+B) Flu positi ve Not Available [address], [address], 11/08/2024 13:29:26 11/09/19 25 11/08/2024 rapid flu (A+B) Type A Not Available [address], [address], 11/08/2024 13:29:26 03/04/20 25 02/27/2025 MAMMO , scree michelle, digit al, bilat eral No observ ation [facility] ed. [email or web address] [address], [place], [address], 03/04/2025 12:32:30 06/10/2006/10/2025 elect rocar diogr am No observ ation record ed. efryman [address], [address], 06/10/2025 14:11:33 06/11/2006/10/2025 elect rocar diogr am No observ ation record ed. [email or web address] [address], [address], 06/14/2025 15:18:16 Result Notes None recorded. Problems Name Problem SNOMED Code Status Onset Date Resolution Date Notes Provider Name and Address Organization Details Recorded Time Hypothyroidis m 66566735 Active Savana Parra null, [place] - [facility] 2 13:10:42 Hypertensive disorder 50442960 Active Savana Parra null, [place] - [facility] 2 13:10:52 Heart disease 92332037 Active Savana Parra null, [place] - [facility] 3 10:42:13 Atrial fibrillation 19906874 Active 2022 Justus Desai, [employer] [address], [place], [address] , [place] - [facility] 3 11:07:05 Acute right otitis media 879881646 Active 2022 Orlin Alva, [employer] [address], [place], [address] , [place] - [facility] 3 16:30:16 Problem [...] Name and Address Organization Details Recorded Time 795947 Phenergan medicatio n vomiting moderate high 06/14/2022 86889 8 RxNorm Savana conrad, [place] - [facility] [...] Updated DateTime 5 160.02 cm 42.3 kg/m2 759435. 58 g 109 /min 96 % 96 % 18 /min 0 124/78 mm[Hg] Savana Parra [facility] 5 13:17:56 Date Recorded Body height Body mass index (BMI) Body weight Heart rate Oxygen saturation Oxygen saturation in Arterial blood by Pulse oximetry Respiratory rate Pain severity - 0-10 verbal numeric rating [Score] - Reported Systolic And Diastolic Provider Name and Address Organization Details Last Updated DateTime 5 160.02 cm 40.7 kg/m2 361911. 25 g 95 /min 96 % 96 % 18 /min 0 126/72 mm[Hg] Savana Parra [place] - [facility] 5 13:44:16 Date Recorded Body height Respiratory rate Body mass index (BMI) Body weight Body temperature Heart rate Oxygen saturation Oxygen saturation in Arterial blood by Pulse oximetry Systolic And Diastolic Provider Name and Address Organization Details Last Updated DateTime 5 160.02 cm 18 /min 40.4 kg/m2 555522. 06 g 98.3 [degF] 90 /min 95 % 95 % 132/76 mm[Hg] Joanne Hernandez [place] - [facility] 5 13:28:49 Date Recorded Body height Respiratory rate Body mass index (BMI) Body weight Body temperature Heart rate Oxygen saturation Oxygen saturation in Arterial blood by Pulse oximetry Systolic And Diastolic Provider Name and Address Organization Details Last Updated DateTime 160.02 cm 18 /min 40.4 kg/m2 761979. 06 g 97.9 [degF] 82 /min 95 % 95 % 128/80 mm[Hg] Joanne Amayas [place] - [facility] 14:10:59 Date Recorded Body height Body mass index (BMI) Body weight Body temperature Respiratory rate Heart rate Oxygen saturation Oxygen saturation in Arterial blood by Pulse oximetry Systolic And Diastolic Provider Name and Address Organization Details Last Updated DateTime 160.02 cm 34.4 kg/m2 56098.9 2 g 98 [degF] 18 /min 116 /min 96 % 96 % 112/68 mm[Hg] Joanne Amayas [place] - [facility] 5 13:25:06 Social History Question Answer Notes LastModified by Organizat ion Details LastModified Time Tobacco Smoking Status Never Smoker [facility]ana [place]rad, [place] [facility] 06/14/2022 13:12:09 Do You Have An Advance [...] Or The Highest Degree You Have Received? DX07549-2 Information not available 09/23/2022 Have There Been Any Changes To Your Family Or Social Situation? No Information no t available 09/23/2022 What Is The Fluoride Status Of Your Home? Unknown Information not available 09/23/2022 Have You Recently Or Are You Planning To Travel To An Area With Zika Virus? No Information not available 03/03/2023 Do You Have A Medical Power Of Multimedia Services Coordinator? No Information not available 09/23/2022 What Was [...] not available 09/23/2022 What is your occupation? [employer] Information not available 05/05/2023 Do you have difficulty dressing, bathing, grooming, or toileting? No Information not available 09/23/2022 What is your exercise level? Moderate Information not available 09/23/2022 Mental Status Question Answer Note LastModified by Organizat ion Details LastModified Time Do you feel stressed (tense, restless, nervous, or anxious, or unable to sleep at night)? [id number] Information not available 09/23/2022 Do you have [...] Details Recorded Time Pneumococcal conjugate PCV20, polysaccharide [id number] conjugate, adjuvant, PF 02/10/20 24 cancelled patient objection Joanne Stears null, [place] - [facility] 02/10/2024 09:18:52 Tdap 02/10/20 24 cancelled patient objection [facility] Stears [place], [place] [facility] 02/10/2024 09:18:52 zoster recombinant 11/17/19 25 cancelled patient objection Priscilladonna guerita, [employer], [place], [address], [facility] - [facility] 11/16/2024 14:40:39 Tdap 11/17/19 25 cancelled patient objection Priscilladonna guerita, [employer] [address], [place], [address], [facility] - [facility] 11/16/2024 14:40:39 Pneumococcal conjugate PCV20, polysaccharide [id number] conjugate, adjuvant, PF 11/17/19 25 cancelled patient objection Justus Byrdguerita, [employer] [address], [place], [address], [place] - [facility] 11/16/2024 14:40:39 COVID-19 vaccine, vector-nr, rS-Ad26, PF, 0.5 mL 11/20/19 21 completed Joanne Stears null, [facility] 11/29/2022 09:40:46 COVID-19 vaccine, vector-nr, rS-Ad26, PF, 0.5 mL 07/30/20 21 completed Joanne Stears null, [facility] 11/29/2022 09:40:46 Tdap 02/13/20 13 completed Joanne Stears null, [facility] 11/29/2022 09:40:46 Td (adult), 2 Lf tetanus toxoid, preservative free, adsorbed 05/07/20 00 completed Joanne Stears null, [facility] 11/29/2022 09:40:46 Hep B, adult 11/19/19 01 completed Joanne Stears null, [place] - [facility] 11/29/2022 09:40:46 Hep B, adult 12/17/19 completed Joanne Stears null, [place] - [facility] 11/29/2022 09:40:46 Hep B, adult 06/15/20 completed Joanne Stears null, [place] - [facility] 11/29/2022 09:40:46 Past Encounters Encounter ID Performer Location Encounter Start Date Encounter Closed Date Diagnosis/Indication Diagnosis SNOMED-CT Code Diagnosis ICD10 Code Diagnosis IMO Codes Diagnosis Note [id number] Justus Desai [address] [address] 06/14/2022 12:45:21 06/14/2022 13:44:21 Acute bronchitis 30788392 J20.9 [id number] Justus Desai [address] [address] 09/23/2022 16:08:07 09/23/2022 16:51:25 Allergic rhinitis 21507444 J30.9 [id number] Justus Desai [employer] [address] [address] 11/29/2022 09:33:40 11/29/2022 10:48:14 Irregular heart beat 777783457 R00.8 ekg sinus rhythm with marked sinus arrhythmia - pt report no cardiac history. has had numerous family member with cardiac history-pt states she had labs in dr siu office last tuesday but has not been called about resultsany issues go to ed Streptococ kelly sore throat 28227104 J02.0 Acute righ t otitis media 859147346 H66.91 treat with amoxicilli n [id number] Justus Desai APRN [address] [address] 12/23/2022 11:21:05 12/23/2022 12:05:50 Body mass index 30+ - obesity 695754295 Z68.41 Obesity 223296772 E66.9 Acute bronchitis 2560905 2 J20.9 call for no improvemen t or worsening of symptoms [id number] Justus Desai APRN [address] [address] 03/03/2023 10:09:51 03/03/2023 11:06:39 Body mass index 40+ - severely obese 729032942 Z68.41 Morbid obesity 332774927 E66.01 Acute righ t otitis media 785588167 H66.91 treat with amoxicilli n [id number] Orlin Alva APRN [address] [address] 05/05/2023 16:04:48 05/05/2023 16:54:10 Acute right otitis media 127753605 H66.91 Otitis MediaDiscu ssed otitis media, potential [...] improvemen t or sooner if required. Hypothyroidism 21755826 E03.9 unknown if controlled possible medication side effects with reported weight gain or possible uncontroll ed hypothyroi dismCurren t treatment maintained .TSH labs check, will call with results ASAPI discussed thyroid disease in therapy and follow-up. The goal is to maintain TSH level between 0.5 and 2.5 mu/L and FT4 within normal range. [id number] Justus Desai APRN [address] [address] 05/24/2023 08:15:13 05/24/2023 09:12:59 Adult health examination 135626848 Z00.00 Depression screening 171 758356 Z13.31 Examinatio n of blood pressure 365958544 Z01.30 Diet education 45123402 Z71.3 Counseling 008404224 Z71 .82 Exercise counseling . Patient encouraged to exercise 30 minutes 5 days a week. At [facility] ed risk for falls 253267373 Z91.81 STEADI FAST screening score of . Advance care planning 71 7954188 Z71.89 Finding of body mass index 300373041 E66.9 Body mass index 30+ - obesity 238975649 Z68.41 Vitamin B1 2 deficiency (non anemic) 66792987 E53.8 Seasonal a llergic rhinitis 802180727 J30.2 Coronary arteriosclerosis 41808925 I25.10 continue to follow cardiology [id number] Justus Desai APRN [address] [address] 02/10/2024 08:00:24 02/10/2024 09:31:19 Adult health examination 932294277 Z00.00 Body mass index 40+ - severely obese 162999079 Z68.41 42.3 Morbid obesity 469894451 E66.01 Hypertensive disorder 38 334569 I10 labs Hypothyroidism 52660235 E03.9 labs Heart disease 93693877 I 51.9 Screening for malignant neoplasm of colon 987958131 Z12.11 Postmenopausal state 764 62145 Z78.0 Z13.820 Z01.419 Atrial fibrillation 4943 6004 I48.91 notified her that it would be $15.31 at [facility] for a 30 day supply Vaccination needed 88455 26674 00179 Z23 Pneumococc al vaccination declined 164843134 Z28.21 Tetanus di phtheria and acellular pertussis vaccination declined 5024358685 2538448 Z28.20 Hepatitis C screening declined 2484683292 5105 Z53.20 Increased frequency of urination 204319104 R35.0 labs,ua Fatigue 36856868 R53.83 labs Scar 804772460 L90.5 bactroban cream, derm referral Acute urin rich tract infection 111749415 N39.0 [id number] Justus Desai APRN [address] [address] 07/06/2024 14:29:06 07/06/2024 15:29:24 Body mass index 40+ - severely obese 636375271 Z68.41 42.3 Morbid obesity 032745654 E66.01 Acute uppe r respiratory infection 00288747 J06.9 no sign of a bacterial infection. [...] improvemen t over the next 48-72 hours [id number] Justus Desai APRN [address] [address] 10/15/2024 13:05:24 10/15/2024 13:33:54 Acute upper respiratory infection 31108986 J06.9 no sign of a bacterial infection. [...] improvemen t over the next 48-72 hours [id number] Justus Desai [employer] [place] [address] 11/05/2024 13:35:04 11/05/2024 14:00:28 Acute bronchitis 68587820 J20.9 call for no improvemen t or worsening of symptomsdi scussed med in detail Cough 80090459 R05.9 if worsening or no improvemen t return [id number] Justus Desai APRN [address] [address] 11/08/2024 13:14:51 11/08/2024 14:28:54 Influenza caused by Influenza A virus 788751244 J09.X2 [id number] Justus Desai [address] [address] 11/16/2024 13:37:03 11/16/2024 14:55:08 Adult health examination 632343841 Z00.00 Depression screening 171 885075 Z13.31 A depression screening was completed via a standardiz ed screening tool. 5 minutes were spent discussing depression screening results and risk factors. Examinatio n of blood pressure 433006798 Z01.30 Diet education 02291924 Z71.3 Counseling 168213843 Z71 .82 Exercise counseling . Patient encouraged to exercise 30 minutes 5 days a week. At [facility] ed risk for falls 589566460 Z91.81 STEADI FAST screening score of __1___. Advance care planning 71 4114105 Z71.89 Morbid obesity 499757828 E66.[address] vaccination declined 8228474550 102 Z28.21 0947544184 Vaccine de clined by patient 5518580413 02 Z28.21 6126023863 Pneumococc al vaccination declined 154386294 Z28.21 21537082 Severe obesity 688333601 1 9104 E66.813 E66.01 Z68.41 8918735140 40.4 [id number] Justus Desai APRN [address] [address] 06/10/2025 13:12:20 06/10/2025 14:01:07 Chest pain 03292178 R07.9 [id number] spoke to nancy and reviewed ekg- sent to dr cruz office for eval Pulmonary congestion 675 69958 R09.89 [id number] wait on med till seen by cardiology Health Concerns Section Related Observation LastModified by Organization Detai ls LastModified Time None Recorded Concern Status LastModified by Organization Details LastModified Time None Recorded Advance Directives Directive N: Payers Insurance Date Sequence Insurance Name Policy Number Policy Padilla Covered Member ID Padilla Member ID Guarantor Name 06/10/2025 1 [employer] (MEDICARE REPLACEMENT/A DVANTAGE - PPO) Hailee Arnett [id number] Hailee Arnett Notes Date Note Type Note Provider Name and Address Organization Details Recorded Time 10/15/2024 text/html ROS as noted in the HPI 69 yr old female presents for right ear pain, sinus tenderness and clear sinus congestion. Denies fever. Justus Desai APRN [address], [place], [address], [place] - [facility] 10/15/2024 13:33:59 11/05/2024 text/html ROS as noted in the [facility] 69 yr old female with a cough after being out in cold/windy/damp weather watching outdoor sports. She denies fever. wants steroid shot Justus Desai, [employer] [address], [place], [address], [place] - [facility] 11/05/2024 13:54:58 11/08/2024 text/html ROS as noted in the [facility] 69 year old female who presents to the office today with concerns of continued cough, yellow/ green congestion, and fever Justus Desai, [employer] [address], [place], [address], [place] - [facility] 11/08/2024 14:02:06 11/16/2024 text/html [...] current level of pain, patient reportsno pain: 010. 69 year old female who presents to the office today for [employer] annual wellness Justus Desia APRN [address], [place], [address], [employer] - [facility] 11/16/2024 14:41:07 06/10/2025 text/html ROS as noted in the HPI 70 year old female who presents to the office today with concerns of bronchitis--chest congestion, very little cough, irritated throat only on waking in the morning, cp that comes and goes Justus Desai APRN [address], [place], [address], [place] - [facility] 06/10/2025 13:56:16 OBGyn Episode No OBEpisode recorded.
--- NOTE | 2025-06-18 07:00 | NM_ITS ---
APPROVED REPORT Exam: Nuclear Stress Test Indication: Chest pain, Abnormal EKG, CAD, HTN, High cholesterol, Family history Patient Location: Outpatient Stress Tech: Joanie Hernandez [place] Tech:Samira Undrewood, ARRT, RT (R)(N) Ht: 5 ft 2 in Wt: 193 lbs Bra Size: 42DD HR: 55 bpm BP: 124/61 mmHg BSA: 1.88 m2 TID: 1.11 BMI: 35.2 History: Chest pain, Abnormal EKG, CAD, HTN, High cholesterol, Family history Procedure: Patient received 0.4 mg of intravenous Lexiscan, resting heart rate 55 bpm, resting blood pressure 124/61 mmHg, with Lexiscan maximum heart rate achieved was 81 bpm which is % of the maximum predicted heart rate and blood pressure was 160/76 mmHg. With Lexiscan, patient denied any complaint of chest pain. Cardiac Stress and Resting SPECT Images: Cardiac Stress and Resting SPECT images were obtained using technetium 99m Myoview 30.8 mCi stress and 10.44 mCi at rest. Resting and stress imaging in supine and prone positions demonstrate no evidence of fixed or reversible perfusion defects. Gated imaging demonstrates normal global and regional LV systolic function. LVEF is calculated at 55%. Conclusion: No evidence of fixed or reversible perfusion defects. Gated imaging demonstrates normal global and regional LV systolic function. LVEF is calculated at 55%. Electronically signed by : Sandrita Corona MD 06/19/2025 00:49:04
[2025-06-18 08:25] VITALS: BP 136/88; PULSE 71; RESP 14
[2025-06-18] MEDS: ISOTOPE MYOVIEW (PER STUDY) 1 DOSE IV (08:34)
[2025-06-18] MEDS: SODIUM CHLORIDE 0.9% 10ML SYR (RAD ONLY) 10 ML IV ×2 (08:34)
--- NOTE | 2025-06-18 09:45 | CA_ITS ---
APPROVED REPORT EXAM: Comprehensive 2D, Doppler, and color-flow Echocardiogram Methods And Procedures Analyst: ZAK Morris, RVS Ht: 5 ft 2 in Wt: 194lbs BSA: 1.89 BP: 126/89 mmHg Indications: CP, CAD-Stents to LAD, A-fib, HTN, Palpitations 2D Dimensions Left Atrium 3.87 cm LA Volume 103.50 mL LA Volume Index 53.60 mL/m2 (M/F) 16-34 M-Mode Dimensions RVDd 3.95 cm (0.9-2.6) LA Diam 4.69 cm (1.9-4.0) LVDd 4.16 cm (3.5-5.7) LVDs 3.10 cm (3.5-5.7) IVSd 1.15 cm (0.6-1.1) PWd 1.10 cm (0.6-1.1) EF (Teich) 50.70% EPSs 0.26 cm FS 25.50% EDV (Teich) 76.80 mL TAPSE 1.75 (<1.7) ESV (Teich) 37.90 mL LV Diastology E Decel Time 203 (160-240 msec) E/A Ratio 1.14 MED A' 6.30 cm/s LAT A' 8.70 cm/s Aortic Valve ADY Index 1.23 cm2/m2 AoV Peak Hector. 100.0 (50-130 cm/s) AO Peak GR. 4.00 mmHg AO Mean GR. 2.00 (<5 mmHg) AO VTI 21.1 (18-25 cm) ADY (VTI) 2.37 (2.5-4.5 cm2) Mitral Valve MV A Velocity 57.0 (40-130 cm/s) E/A Ratio 1.14 Pulmonary Valve PV Peak Velocity 71.0 (50-150 cm/s) MA End VMAX 183.0 cm/s Left Ventricle The left ventricle is normal size. Left ventricular systolic function is normal. The left ventricular ejection fraction is within the normal range. There is increased left ventricular wall thickness. There is normal LV segmental wall motion. The left ventricular diastolic function is normal. LVEF is 55% Right Ventricle The right ventricle is normal size. The right ventricular systolic function is normal. Atria The left atrium is moderately dilated. The right atrium is mildly reduced. There is no color Doppler evidence of interatrial shunt. Aortic Valve The aortic valve is mildly thickened. There is no hemodynamically significant aortic valvular stenosis. Trace aortic regurgitation is present. Mitral Valve The mitral valve is normal in structure. No evidence of mitral valve stenosis. Mild mitral regurgitation is present. Tricuspid Valve The tricuspid valve leaflets are thin and pliable. Trace tricuspid regurgitation. There is insufficient TR jet to estimate RVSP. Pulmonic Valve The pulmonary valve is grossly normal in structure. Trace pulmonic valve regurgitation is present. Great Vessels The aortic root is normal in size. IVC is normal in size and collapses >50% with inspiration. Pericardium There is no pericardial effusion. Other Information Study Quality: Fair Conclusion Normal biventricular systolic function. Moderate LA dilation. Mild MR. Electronically signed by : Sandrita Corona MD 06/19/2025 12:24:33
== END 2025-06-18 23:59 | disposition home or self-care (01) ==
LOC: RAD 06:15
PROVIDERS: PCP Nurse Practitioner Family; Visit Provider Nurse Practitioner Family
DX: I34.0 Nonrheumatic mitral (valve) insufficiency (principal); I11.9 Hypertensive heart disease without heart failure; I48.0 Paroxysmal atrial fibrillation; I25.112 Atherosclerotic heart disease of native coronary artery with refractory angina pectoris; R94.31 Abnormal electrocardiogram [ECG] [EKG]; E78.00 Pure hypercholesterolemia, unspecified; Z95.5 Presence of coronary angioplasty implant and graft
CPT/HCPCS: 78452; 93017; 93018; 93306; A9502; J2785